=== PATIENT | male | born 1990 | race Caucasian/White ===

== ENCOUNTER 2016-10-15 03:32 | Emergency (ER) | payer OTHER ==
[2016-10-15 03:39] VITALS: BP 121/90
--- NOTE | 2016-10-15 04:03 | ER Document Report ---
HPI - HPI Patient complains to provider of: right knee pain Onset: Yesterday - playing [employer] fell and twisted the knee Onset/Duration: Gradual Pain Level: 5 Context: 26 yo male twisted and fell injuring his right knee yesterday playing soccer with his niece in [place]. When he woke up this morning the pain was so intense it was difficult to walk. There no previous injury Associated Symptoms: None Exacerbated by: Movement, Walking Relieved by: Denies Similar symptoms previously: No Recently seen / treated by doctor: No - ROS ROS below otherwise negative: Yes Systems Reviewed and Negative: Yes All other systems reviewed and negative - REPRODUCTIVE Reproductive: DENIES: : - DERM Skin Color: Normal Past Medical History - General Information source: Patient - Social History Smoking Status: Current Every Day Smoker Frequency of alcohol use: None Drug Abuse: None Lives with: Spouse/Significant other Family History: Reviewed & Not Pertinent Patient has suicidal ideation: No Patient has homicidal ideation: No - Medical History Medical History: Negative Pulmonary Medical History: Reports: Hx Bronchitis Renal/ Medical History: Denies: Hx Peritoneal Dialysis Past Surgical History: Reports: Hx Orthopedic Surgery - L hand with screws in place - Immunizations Hx Diphtheria, Pertussis, Tetanus Vaccination: Yes - unknown Vertical Provider Document - CONSTITUTIONAL Agree With Documented VS: Yes Exam Limitations: No Limitations - INFECTION CONTROL TRAVEL OUTSIDE OF THE [place] IN LAST 30 DAYS: No - HEENT HEENT: Normocephalic - NECK Neck: Supple - RESPIRATORY O2 Sat by Pulse Oximetry: 97 - MUSCULOSKELETAL/EXTREMETIES Musculoskeletal/Extremeties: Tender - Anterior right knee, No Edema. negative: Eccymosis Notes: No effusion, patellar tendon intact, 2+ DP - NEURO Level of Consciousness: Awake, Alert Motor/Sensory: No Motor Deficit, No Sensory Deficit - DERM Integumentary: Warm, Dry Course - Re-evaluation Re-evalutation: 10/15/16 04:04 prelim xray is negative. - Vital Signs Vital signs: Temp Pulse Resp BP Pulse Ox 98 F 74 18 121/90 H 97 10/15/16 03:36 10/15/16 03:36 10/15/16 03:36 10/15/16 03:36 10/15/16 03:36 Discharge - Discharge Clinical Impression: Right knee injury Qualifiers: Encounter type: initial encounter Qualified Code(s): S89.91XA - Unspecified injury of right lower leg, initial encounter Condition: Good Disposition: HOME, SELF-CARE Instructions: Suspected Internal Knee Injury ([facility]), Sprained Knee ([facility]), Knee Immobilizing Splint ([facility]), Anti-Inflammatory Medication ([facility]) Additional Instructions: elevate knee immobilizer crutches see orthopedic doctor if persists to er any concerns Prescriptions: Ibuprofen [Motrin 800 mg Tablet] 800 mg PO Q8HP PRN #30 tab PRN Reason: Oxycodone HCl/Acetaminophen [Percocet 5-325 mg Tablet] 1 - 2 tab PO ASDIR PRN # 15 tablet PRN Reason: Forms: Return to Work Referrals: ZULEIMA RIVERA MD [ACTIVE STAFF] - Follow up as needed
[2016-10-15] MEDS ORDERED: ONDANSETRON 4 MG TAB.RAPDIS PO ONE (04:06)
[2016-10-15] MEDS ORDERED: OXYCODONE-ACETAMINOPHEN 5-325 MG TABLET PO ONE (04:06)
--- NOTE | 2016-10-15 04:11 | RADIOLOGY REPORT (SQ) ---
EXAM DESCRIPTION: KNEE RIGHT 4 VIEWS COMPLETED DATE/TIME: 10/15/2016 3:59 am REASON FOR STUDY: PAIN COMPARISON: None. NUMBER OF VIEWS: Four views. 5 images. TECHNIQUE: AP, lateral, and both oblique radiographic images acquired of the right knee. LIMITATIONS: None. FINDINGS: MINERALIZATION: Normal. BONES: No acute fracture or dislocation. No worrisome bone lesions. JOINT: No effusion. SOFT TISSUES: No soft tissue swelling. No radio-opaque foreign body. OTHER: No other significant finding. IMPRESSION: NEGATIVE STUDY OF THE RIGHT KNEE. NO RADIOGRAPHIC EVIDENCE OF ACUTE INJURY. TECHNICAL DOCUMENTATION: JOB ID: [id number] [employer]- All Rights Reserved
== END 2016-10-15 04:20 | disposition home or self-care (01) ==
LOC: ER 03:32
DX: S89.91XA Unspecified injury of right lower leg, initial encounter (principal); M25.561 Pain in right knee; F17.200 Nicotine dependence, unspecified, uncomplicated; W19.XXXA Unspecified fall, initial encounter; Y93.66 Activity, soccer
CPT/HCPCS: 99283; 73564; L1830; S0119

== ENCOUNTER 2016-11-17 14:47 | Emergency (ER) | payer OTHER ==
[2016-11-17] MEDS ORDERED: DIPHENHYDRAMINE HCL 50 MG/ML VIAL ONE (14:54)
[2016-11-17] MEDS ORDERED: EPINEPHRINE INJ/PF 1 MG/1 ML AMPULE ONE (14:54)
[2016-11-17] MEDS ORDERED: METHYLPREDNISOLONE INJ 125 MG/2 ML SDV ONE (14:55)
[2016-11-17] MEDS ORDERED: FAMOTIDINE INJ/PF 20 MG/2 ML SDV IV ONE ×2 (14:55→15:18)
--- NOTE | 2016-11-17 15:13 | ER Document Report ---
ED Skin Rash/Insect Bite/Abscs - General Information source: Patient TRAVEL OUTSIDE OF THE [place] IN LAST 30 DAYS: No - HPI Patient complains to provider of: Insect sting - several bees Onset: Just prior to arrival Identify cause: Yes - bee sting while mowing grass <ERIKA OLSON - Last Filed: 11/17/16 15:39> <BJ WHITE - Last Filed: 11/17/16 23:43> - General Chief Complaint: Bee Sting Stated Complaint: BEE STING/ SHORTNESS OF BREATH Notes: Patient is a 26 year old male who presents to the ED with complaints of several bee stings he obtained while mowing the grass outside just prior to arrival. Patient states he has some difficulty breathing and feels lightheaded when he sits up. Patient denies any abdominal pain other than the pain from the bee stings. Patient states he was outside for a couple hours and only drank a couple bottles of water. Patient denies a previous history of being allergic to bee stings. Patient is not on any daily medications. No other concerns or complaints at this time. (ERIKA OLSON) - Related Data Allergies/Adverse Reactions: bee sting Allergy (Uncoded 11/17/16 15:04) Past Medical History - General Information source: Patient - Social History Smoking Status: Unknown if Ever Smoked Family History: Reviewed & Not Pertinent Patient has suicidal ideation: No Patient has homicidal ideation: No Pulmonary Medical History: Reports: Hx Bronchitis Renal/ Medical History: Denies: Hx Peritoneal Dialysis Past Surgical History: Reports: Hx Orthopedic Surgery - L hand with screws in place - Immunizations Hx Diphtheria, Pertussis, Tetanus Vaccination: Yes - unknown <ERIKA OLSON - Last Filed: 11/17/16 15:39> Review of Systems - Review of Systems Constitutional: No symptoms reported EENT: No symptoms reported Cardiovascular: See HPI, Lightheaded Respiratory: See HPI, Short of breath Gastrointestinal: No symptoms reported Genitourinary: No symptoms reported Male Genitourinary: No symptoms reported Musculoskeletal: No symptoms reported Skin: See HPI, Other - bee stings Hematologic/Lymphatic: No symptoms reported Neurological/Psychological: No symptoms reported <ERIKA OLSON - Last Filed: 11/17/16 15:39> Physical Exam - Vital signs Interpretation: Normal - General General appearance: Alert In distress: Mild - Appears uncomfortable - HEENT Head: Normocephalic, Atraumatic Eyes: Normal Pupils: PERRL - Respiratory Respiratory status: No respiratory distress Chest status: Nontender Breath sounds: Normal Chest palpation: Normal - Cardiovascular Rhythm: Regular Heart sounds: Normal auscultation Murmur: No - Abdominal Inspection: Normal Distension: No distension Bowel sounds: Normal Tenderness: Nontender Organomegaly: No organomegaly - Back Back: Normal, Nontender - Extremities General upper extremity: Normal inspection, Nontender, Normal color, Normal ROM , Normal temperature General lower extremity: Normal inspection, Nontender, Normal color, Normal ROM , Normal temperature, Normal weight bearing. No: Carlita's sign - Neurological Neuro grossly intact: Yes Cognition: Normal Orientation: AAOx4 Tiki Coma Scale Eye Opening: Spontaneous Tiki Coma Scale Verbal: Oriented Raymond Coma Scale Motor: Obeys Commands Tiki Coma Scale Total: 15 Speech: Normal Motor strength normal: LUE, RUE, LLE, RLE Sensory: Normal - Psychological Associated symptoms: Normal affect, Normal mood - Skin Skin Temperature: Warm Skin Moisture: Dry Skin Color: Normal Skin irregularity: other - Multiple areas of insect envenomation <BJ WHITE - Last Filed: 11/17/16 23:43> - Vital signs Vitals: Temp Pulse Resp BP Pulse Ox 98.4 F 94 20 130/87 H 97 11/17/16 14:51 11/17/16 14:51 11/17/16 14:51 11/17/16 14:51 11/17/16 14:51 Course <ERIKA OLSON - Last Filed: 11/17/16 15:39> <BJ WHITE - Last Filed: 11/17/16 23:43> - Re-evaluation Re-evalutation: 11/17/16 20:15 Patient is a 26-year-old male who comes in for allergic reaction. Patient initially had some throat scratching and lightheadedness. Patient was given Solu-Medrol, Benadryl, and famotidine. He was also given fluids. Patient slept for quite some time from the Benadryl even though was only 25 mg. He is feeling better at this time. He is having pain from his envenomation but no further evidence for allergic reaction. He will be discharged home with prednisone, famotidine, and EpiPen as needed. Stable for discharge. Return if any worsening or concerning symptoms. (BJ WHITE) - Vital Signs Vital signs: Temp Pulse Resp BP Pulse Ox 98.4 F 94 11 L 108/76 93 11/17/16 14:51 11/17/16 14:51 11/17/16 20:46 11/17/16 20:46 11/17/16 20:46 Discharge <ERIKA OLSON - Last Filed: 11/17/16 15:39> <BJ WHITE - Last Filed: 11/17/16 23:43> - Discharge Clinical Impression: Allergic reaction Qualifiers: Encounter type: initial encounter Qualified Code(s): T78.40XA - Allergy, unspecified, initial encounter Insect bite Qualifiers: Encounter type: initial encounter Qualified Code(s): W57.XXXA - Bitten or stung by nonvenomous insect and other nonvenomous arthropods, initial encounter Condition: Stable Disposition: HOME, SELF-CARE Instructions: Acute Allergic Reaction ([facility]), Swollen Insect Bite or Sting ([facility]) Prescriptions: Epinephrine [Epipen 2-Keaton] 0.3 mg IM ONCE #1 ml Famotidine [Pepcid 20 mg Tablet] 20 mg PO DAILY #30 tablet Prednisone 40 mg PO DAILY #6 tablet Forms: Special Work Note, Return to Work Scribe Attestation: 11/17/16 23:43 I personally performed the services described in the documentation, reviewed and edited the documentation which was dictated to the scribe in my presence, and it accurately records my words and actions. (BJ WHITE) Scribe Documentation - Scribe Written by Joyce:: joyce Patino, 11/17/2016, 1513 acting as scribe for :: Kushal <ERIKA OLSON - Last Filed: 11/17/16 15:39>
[2016-11-17] MEDS ORDERED: METHYLPREDNISOLONE INJ 125 MG/2 ML SDV IV ONE (15:18)
[2016-11-17] MEDS ORDERED: DIPHENHYDRAMINE HCL 50 MG/ML VIAL IV ONE (15:18)
[2016-11-17] MEDS ORDERED: NORMAL SALINE 1000 ML 1,000 ML IV PRN (15:19)
[2016-11-17] MEDS ORDERED: IPRATROPIUM/ALBUTEROL 0.5-2.5 MG/3 ML AMPUL NEB ONE (16:36)
[2016-11-17] MEDS ORDERED: KETOROLAC TROMETHAMINE INJ/PF 30 MG/1 ML SDV IV ONE (17:27)
[2016-11-17] MEDS ORDERED: HYDROCODONE/ACETAMINOPHEN 5-325 MG 6 TAB/DSPK PO PRN (20:53)
[2016-11-17] MEDS ORDERED: HYDROCODONE/ACETAMINOPHEN 5-325 MG 6 TAB/DSPK ONE (20:56)
[2016-11-17 21:08] VITALS: BP 108/76
== END 2016-11-17 20:55 | disposition home or self-care (01) ==
LOC: ER 14:47
DX: T63.441A Toxic effect of venom of bees, accidental (unintentional), initial encounter (principal); R06.02 Shortness of breath; R42 Dizziness and giddiness; R09.89 Other specified symptoms and signs involving the circulatory and respiratory systems; Y92.007 Garden or yard of unspecified non-institutional (private) residence as the place of occurrence of the external cause
CPT/HCPCS: 94640; 99283; 96374; 96375; J1200; J2930; J1885; J7030; S0028; J7620

== ENCOUNTER 2016-12-02 10:19 | Emergency (ER) | payer OTHER ==
--- NOTE | 2016-12-02 11:31 | ER Document Report ---
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 Foosh injury. He is complaining of pain over the distal left ulna. He had surgery and stabilization of metacarpal fractures of the middle and ring finger in the past. He had an Andres bandage on the area this morning. Associated Symptoms: None Exacerbated by: Movement Relieved by: Denies Similar symptoms previously: No Recently seen / treated by doctor: No - ROS ROS below otherwise negative: Yes Systems Reviewed and Negative: Yes All other systems reviewed and negative - REPRODUCTIVE Reproductive: DENIES: : - DERM Skin Color: Normal Past Medical History - General Information source: Patient - Social History Smoking Status: Unknown if Ever Smoked Frequency of alcohol use: None Drug Abuse: None Lives with: Family Family History: Reviewed & Not Pertinent Pulmonary Medical History: Reports: Hx Bronchitis Renal/ Medical History: Denies: Hx Peritoneal Dialysis Past Surgical History: Reports: Hx Orthopedic Surgery - L hand with screws in place - Immunizations Hx Diphtheria, Pertussis, Tetanus Vaccination: Yes - unknown Vertical Provider Document - CONSTITUTIONAL Agree With Documented VS: Yes Exam Limitations: No Limitations - INFECTION CONTROL TRAVEL OUTSIDE OF THE [place] IN LAST 30 DAYS: No - HEENT HEENT: Atraumatic, Normocephalic - NECK Neck: Supple - MUSCULOSKELETAL/EXTREMETIES Musculoskeletal/Extremeties: MAEW, FROM, Tender - ulnar styloid, No Edema. negative: Eccymosis Notes: non tender over metacarpals, and carpals. FROM hand, wrist, and elbow. N/V intact. - NEURO Level of Consciousness: Awake, Alert, Appropriate Motor/Sensory: No Motor Deficit, No Sensory Deficit - DERM Integumentary: Warm, Dry, No Rash Course - Re-evaluation Re-evalutation: 12/02/16 12:14 Stable surgical changes on the middle and ring finger, negative wrist x-ray. Procedures - Immobilization Left Wrist Time completed: 12:35 Pre-Proc Neuro Vasc Exam: Normal Immobilizer type: Cock-up Performed by: RN Post-Proc Neuro Vasc Exam: Normal Alignment checked and good: Yes Discharge - Discharge Clinical Impression: left ulnar styloid injury Wrist sprain Qualifiers: Encounter type: initial encounter Laterality: left Qualified Code(s): S63.502A - Unspecified sprain of left wrist, initial encounter Condition: Good Disposition: HOME, SELF-CARE Instructions: Wrist Sprain ([facility]), Temporary Splint ([facility]), Anti-Inflammatory Medication ([facility]), Splint Precautions ([facility]) Additional Instructions: splint this week see your orthopedic doctor if persists to er any concerns Please complete the patient satisfaction survey if you get one, and return it.. If you do not receive a survey, then you can go to the [facility] website, [email or web address] and place your comments about your very good care. Thank you very much. It was a pleasure being your medical provider today. Prescriptions: Ibuprofen [Motrin 800 mg Tablet] 800 mg PO Q8HP PRN #30 tablet PRN Reason: Forms: Return to Work
--- NOTE | 2016-12-02 12:11 | RADIOLOGY REPORT (SQ) ---
EXAM DESCRIPTION: WRIST LEFT 3 VIEWS COMPLETED DATE/TIME: 12/02/2016 11:55 am REASON FOR STUDY: fall last night 7:30 pm COMPARISON: 01/28/2016. NUMBER OF VIEWS: Three views. TECHNIQUE: AP, lateral, and oblique radiographic images acquired of the left wrist. LIMITATIONS: None. FINDINGS: MINERALIZATION: Normal. BONES: No acute fracture or dislocation. Stable surgical changes in the 3rd and 4th metacarpal with hardware. No worrisome bone lesions. Normal alignment. SOFT TISSUES: No soft tissue swelling. No foreign body. OTHER: No other significant finding. IMPRESSION: STABLE SURGICAL CHANGES. NEGATIVE STUDY OF THE LEFT WRIST. NO RADIOGRAPHIC EVIDENCE OF ACUTE INJURY. TECHNICAL DOCUMENTATION: JOB ID: [id number] [employer]- All Rights Reserved
[2016-12-02 12:37] VITALS: BP 121/88
== END 2016-12-02 12:40 | disposition home or self-care (01) ==
LOC: ER 10:19
DX: S63.502A Unspecified sprain of left wrist, initial encounter (principal); W54.1XXA Struck by dog, initial encounter; Z98.890 Other specified postprocedural states
CPT/HCPCS: 99283; 73110; L3908

== ENCOUNTER 2016-12-28 15:36 | Emergency (ER) | payer OTHER ==
[2016-12-28 15:42] VITALS: BP 131/77
[2016-12-28] MEDS ORDERED: IBUPROFEN 400 MG TABLET PO ONE (16:17)
--- NOTE | 2016-12-28 16:23 | ER Document Report ---
ED Hand/Wrist Injury - General Chief Complaint: Hand Injury Stated Complaint: LEFT HAND INJURY Time Seen by Provider: 12/28/16 15:59 Mode of Arrival: Ambulatory Information source: Patient Notes: 26-year-old male presents to ED for injury to his left hand. He states he has a history of surgery to his left hand with placement of metal screws. He was more moving furniture for his friend today with the sectional sulfur fell on his hand. He states he took 400 mg of ibuprofen at home with no relief. TRAVEL OUTSIDE OF THE [place] 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 Lives with: Family Family History: Reviewed & Not Pertinent Patient has suicidal ideation: No Patient has homicidal ideation: No - Past Medical History Cardiac Medical History: Reports: None Pulmonary Medical History: Reports: Hx Bronchitis EENT Medical History: Reports: None Neurological Medical History: Reports: None Endocrine Medical History: Reports: None Renal/ Medical History: Reports: None Malignancy Medical History: Reports None GI Medical History: Reports: None Musculoskeltal Medical History: Reports Hx Arthritis, Reports Hx Musculoskeletal Trauma Skin Medical History: Reports None Psychiatric Medical History: Reports: None Traumatic Medical History: Reports: Hx Fractures Infectious Medical History: Reports: None Past Surgical History: Reports: Hx Orthopedic Surgery - L hand with screws in place - Immunizations Hx Diphtheria, Pertussis, Tetanus Vaccination: Yes - unknown Review of Systems - Review of Systems Constitutional: No symptoms reported EENT: No symptoms reported Cardiovascular: No symptoms reported Respiratory: No symptoms reported Gastrointestinal: No symptoms reported Genitourinary: No symptoms reported Male Genitourinary: No symptoms reported Musculoskeletal: Other - right hand pain swelling and tenderness Skin: No symptoms reported Hematologic/Lymphatic: No symptoms reported Neurological/Psychological: No symptoms reported -: Yes All other systems reviewed and negative Physical Exam - Vital signs Vitals: Temp Pulse Resp BP Pulse Ox 98.8 F 90 16 131/77 H 96 12/28/16 15:40 12/28/16 15:40 12/28/16 15:40 12/28/16 15:40 12/28/16 15:40 Interpretation: Normal - General General appearance: Appears well, Alert - HEENT Head: Normocephalic, Atraumatic Eyes: Normal Pupils: PERRL - Respiratory Respiratory status: No respiratory distress Chest status: Nontender Breath sounds: Normal Chest palpation: Normal - Cardiovascular Rhythm: Regular Heart sounds: Normal auscultation Murmur: No - Abdominal Inspection: Normal Distension: No distension Bowel sounds: Normal Tenderness: Nontender Organomegaly: No organomegaly - Back Back: Normal, Nontender - Extremities General upper extremity: Normal color, Normal temperature General lower extremity: Normal inspection, Nontender, Normal color, Normal ROM , Normal temperature, Normal weight bearing. No: Carlita's sign Wrist: Tender, Limited ROM - due yo pain Hand: Tender, Ecchymosis, No evidence of human bite, No evidence of FB, Swelling. No: Abrasion, Deformity, Dislocation, Instability, Laceration - Neurological Neuro grossly intact: Yes Cognition: Normal Orientation: AAOx4 Tiki Coma Scale Eye Opening: Spontaneous Tiki Coma Scale Verbal: Oriented Tiki Coma Scale Motor: Obeys Commands Tiki Coma Scale Total: 15 Speech: Normal Motor strength normal: LUE, RUE, LLE, RLE Sensory: Normal - Psychological Associated symptoms: Normal affect, Normal mood - Skin Skin Temperature: Warm Skin Moisture: Dry Skin Color: Normal Course - Re-evaluation Re-evalutation: 12/28/16 17:30 Discussed x-ray results with patient and patient discharged home with prescription for ibuprofen. Patient was given instructions on ice and elevation. - Vital Signs Vital signs: Temp Pulse Resp BP Pulse Ox 98.8 F 90 16 131/77 H 96 12/28/16 15:40 12/28/16 15:40 12/28/16 15:40 12/28/16 15:40 12/28/16 15:40 - Diagnostic Test Radiology reviewed: Image reviewed, Reports reviewed Discharge - Discharge Clinical Impression: Contusion of left hand Qualifiers: Encounter type: initial encounter Qualified Code(s): S60.222A - Contusion of left hand, initial encounter Condition: Stable Disposition: HOME, SELF-CARE Instructions: Family Physicians / Practices Additional Instructions: CONTUSION: Your injury has resulted in a contusion -- a crushing of the deep tissues. No injury to important structures was detected during the physician's exam. Contusions vary in the amount of pain they cause, and in the length of time required for healing. Typically, the area will become bruised, and will remain painful to touch for two or three weeks. However, most patients are back to working and playing within a few days. After the initial period of rest and cold-packs, your symptoms (together with the doctor's recommendations) will determine how rapidly you can get back to full activity. Usually this means "do what feels okay, but don't do things that hurt." If re-examination was recommended, it's important to follow up as instructed. Call the doctor or return any time if pain increases, if swelling becomes severe, if you develop numbness or weakness in an injured extremity, or if any other alarming symptoms occur. USE OF TYLENOL (ACETAMINOPHEN): Acetaminophen may be taken for pain relief or fever control. It's much safer than aspirin, offering a wider range of "safe" dosages. It is safe during . Some brand names are Tylenol, Panadol, Datril, Anacin 3, Tempra, and Liquiprin. Acetaminophen can be repeated every four hours. The following are maximum recommended dosages: WEIGHT Dose Drops Elixir Chewable( 80mg) (LBS.) drprs=droppers tsp=teaspoon 6 40 mg 0.4 ml (1/2) 6-11 80 mg 0.8 ml (full) tsp 1 tab 12-16 120 mg 1 1/2 drprs 3/4 tsp 1 1/2 tabs 17-23 160 mg 2 drprs 1 tsp 2 tabs 24-30 240 mg 3 drprs 1 1/2 tsp 3 tabs 30-35 320 mg 2 tsp 4 tabs 36-41 360 mg 2 1/4 tsp 4 1/2 tabs 42-47 400 mg 2 1/2 tsp 5 tabs 48-53 480 mg 3 tsp 6 tabs 54-59 520 mg 3 1/4 tsp 6 1/2 tabs 60-64 560 mg 3 1/2 tsp 7 tabs 65-70 600 mg 3 3/4 tsp 7 1/2 tabs 71-76 640 mg 4 tsp 8 tabs 77-82 720 mg 4 1/2 tsp 9 tabs 83-88 800 mg 5 tsp 10 tabs >89 pounds or adults 650 mg to 900 mg Acetaminophen can be repeated every four hours. Maximum dose not to exceed 4000 mg a day. These maximum recommended dosages are slightly higher than the dosages written on the product container, but these dosages are very safe and below the toxic dosage for acetaminophen. ICE & ELEVATION: Apply ice packs frequently against the painful area. Many different schedules are recommended, such as "20 minutes on, 20 minutes off" or "one hour ice, two hours rest." If you need to work, you may need to go longer between ice treatments. You should plan to have the area ice packed AT LEAST one- fourth of the time. The ice should be applied over the wrap, tape, or splint, or over a layer of cloth -- not directly against the skin. Some ice bags have a built-in cloth and can be put directly on the skin. Your injured part should be elevated as much as possible over the next 48 hours. Try to keep the injury above the level of the heart. Avoid use of the injured area. Elevation and rest will decrease the swelling. USE OF [id number]-[id number] IBUPROFEN: Ibuprofen (Advil, Nuprin, Medipren, Motrin IB) is a medication for fever and pain control. In addition, it has anti- inflammatory effects which may be beneficial, especially in the treatment of injuries. It's best to take ibuprofen with food. Persons with ulcer disease or allergy to aspirin should notify their physician of this before taking ibuprofen. Ibuprofen can be given every four to six hours, for a total of four doses daily. Age Pain or fever dose Antiinflammatory dose 6-8 yr 200 mg (1 tab) 200 mg (1 tab) 9-11 yr 200 mg (1 tab) 200-400 mg (1-2 tab) 11-14 yr 200-400 mg (1-2 tab) 400 mg (2 tab) 15-adult 400 mg (2 tab) 600 mg (3 tab) FOLLOW-UP CARE: If you have been referred to a physician for follow-up care, call the physician s office for an appointment as you were instructed or within the next two days. If you experience worsening or a significant change in your symptoms, notify the physician immediately or return to the Emergency Department at any time for re-evaluation. Prescriptions: Ibuprofen 800 mg PO Q8HP PRN #20 tablet PRN Reason: Referrals: ZULEIMA RIVERA MD [ACTIVE STAFF] - Follow up as needed
--- NOTE | 2016-12-28 16:39 | RADIOLOGY REPORT (SQ) ---
EXAM DESCRIPTION: HAND LEFT 3 VIEWS COMPLETED DATE/TIME: 12/28/2016 4:26 pm REASON FOR STUDY: pain and injury COMPARISON: Left hand three views 01/28/2016 EXAM PARAMETERS: NUMBER OF VIEWS: Three views. TECHNIQUE: AP, lateral and oblique radiographic images acquired of the left hand. LIMITATIONS: None. FINDINGS: MINERALIZATION: Normal. BONES: No acute fracture or dislocation. Micro screws across old healed fractures of the 3rd and 4th metacarpal diaphyses. No lucency around the screws worrisome for loosening or infection. JOINTS: No effusions. SOFT TISSUES: Mild left dorsal hand soft tissue swelling. No foreign body. OTHER: No other significant finding. IMPRESSION: No acute bony findings. Old healed left 3rd and 4th midshaft metacarpal fractures with hardware. TECHNICAL DOCUMENTATION: JOB ID: [id number] [employer]- All Rights Reserved
== END 2016-12-28 17:25 | disposition home or self-care (01) ==
LOC: ER 15:36
DX: S60.222A Contusion of left hand, initial encounter (principal); W23.0XXA Caught, crushed, jammed, or pinched between moving objects, initial encounter; Y93.E6 Activity, residential relocation
CPT/HCPCS: 99283; 73130; J3490

== ENCOUNTER 2017-05-27 14:31 | Emergency (ER) | payer OTHER ==
[2017-05-27] MEDS ORDERED: ONDANSETRON 4 MG TAB.RAPDIS PO ONE (16:08)
--- NOTE | 2017-05-27 16:10 | ER Document Report ---
HPI - HPI Patient complains to provider of: vomited last night, left hand injury Onset: Yesterday Onset/Duration: Sudden Pain Level: 4 Context: 26 yo male that works at [employer] is c/o crushing left hand between wall and sofa, also vomited twice last night with some nausea today. No abd. pain, No diarrhea. Prior to d/c wanted me to look at groin rash. Worried about it. Associated Symptoms: None Exacerbated by: Denies Relieved by: Denies - ROS ROS below otherwise negative: Yes Systems Reviewed and Negative: Yes All other systems reviewed and negative - REPRODUCTIVE Reproductive: DENIES: : Past Medical History - General Information source: Patient - Social History Smoking Status: Former Smoker Frequency of alcohol use: None Drug Abuse: None Lives with: Family Family History: Reviewed & Not Pertinent Pulmonary Medical History: Reports: Hx Bronchitis Renal/ Medical History: Denies: Hx Peritoneal Dialysis Musculoskeltal Medical History: Reports Hx Arthritis, Reports Hx Musculoskeletal Trauma Traumatic Medical History: Reports: Hx Fractures Past Surgical History: Reports: Hx Orthopedic Surgery - L hand with screws in place - Immunizations Hx Diphtheria, Pertussis, Tetanus Vaccination: Yes - unknown Vertical Provider Document - CONSTITUTIONAL Agree With Documented VS: Yes Exam Limitations: No Limitations General Appearance: No Apparent Distress - INFECTION CONTROL TRAVEL OUTSIDE OF THE [place] IN LAST 30 DAYS: No - HEENT HEENT: Normal ENT Exam, Normocephalic - NECK Neck: Supple - RESPIRATORY Respiratory: Breath Sounds Normal, No Respiratory Distress O2 Sat by Pulse Oximetry: 95 - CARDIOVASCULAR Cardiovascular: Regular Rate, Regular Rhythm - GI/ABDOMEN Gastrointestinal: Abdomen Soft, Abdomen Non-Tender, No Organomegaly - REPRODUCTIVE Notes: tinea cruris - BACK Back: Normal Inspection - MUSCULOSKELETAL/EXTREMETIES Musculoskeletal/Extremeties: MAEW, FROM, Tender - dorsal left hand soft tissue, FROM, n/v intact, Edema. negative: Eccymosis - NEURO Level of Consciousness: Awake, Alert Motor/Sensory: No Motor Deficit, No Sensory Deficit - DERM Integumentary: Warm, Dry Course - Re-evaluation Re-evalutation: 05/27/17 21:14 late entry: xray negative - Vital Signs Vital signs: Temp Pulse Resp BP Pulse Ox 98.7 F 104 H 18 137/84 H 95 05/27/17 14:44 05/27/17 14:44 05/27/17 14:44 05/27/17 14:44 05/27/17 14:44 Discharge - Discharge Clinical Impression: Tinea cruris Vomiting Qualifiers: Vomiting type: unspecified Vomiting Intractability: non-intractable Nausea presence: with nausea Qualified Code(s): R11.2 - Nausea with vomiting, unspecified Crushing injury of left hand Qualifiers: Encounter type: initial encounter Qualified Code(s): S67.22XA - Crushing injury of left hand, initial encounter Condition: Good Disposition: HOME, SELF-CARE Instructions: Antinausea Medication ([facility]), Crush Injury ([facility]), Ringworm (Tinea Corporis) ([facility]), Topical Antifungal ([facility]), Vomiting ([facility]) Additional Instructions: plenty of fluids brijesh wrap to left hand for comfort over the counter antifungal cream twice a day, it will fade the skin fungus return to er if worsening symptoms, abdominal pain, dehydration, fever phenergan for nausea every 4-6 hours as needed. Prescriptions: Promethazine HCl [Phenergan 25 mg Tablet] 25 mg PO Q4HP PRN #20 tablet PRN Reason: Forms: Return to Work
--- NOTE | 2017-05-27 17:14 | RADIOLOGY REPORT (SQ) ---
EXAM DESCRIPTION: HAND LEFT 3 VIEWS COMPLETED DATE/TIME: 05/27/2017 4:53 pm REASON FOR STUDY: injury 1200 1-15 COMPARISON: Left hip films 01/28/2016 EXAM PARAMETERS: NUMBER OF VIEWS: Three views. TECHNIQUE: AP, lateral and oblique radiographic images acquired of the left hand. LIMITATIONS: None. FINDINGS: MINERALIZATION: Normal. BONES: No acute fracture or dislocation. No worrisome bone lesions. JOINTS: No effusions. SOFT TISSUES: No soft tissue swelling. Tiny micro screws across 3rd and 4th metacarpal mid diaphysis healed fractures. OTHER: No other significant finding. IMPRESSION: No acute findings TECHNICAL DOCUMENTATION: JOB ID: [id number] [employer] All Rights Reserved
[2017-05-27 17:31] VITALS: BP 120/85
== END 2017-05-27 17:35 | disposition home or self-care (01) ==
LOC: ER 14:31
DX: S67.22XA Crushing injury of left hand, initial encounter (principal); R11.2 Nausea with vomiting, unspecified; B35.6 Tinea cruris; W23.0XXA Caught, crushed, jammed, or pinched between moving objects, initial encounter; Z87.891 Personal history of nicotine dependence
CPT/HCPCS: 99284; 73130; S0119

== ENCOUNTER 2017-08-23 17:19 | Emergency (ER) | payer OTHER ==
[2017-08-23 17:30] VITALS: BP 124/81
--- NOTE | 2017-08-23 18:06 | RADIOLOGY REPORT (SQ) ---
EXAM DESCRIPTION: HAND LEFT 3 VIEWS COMPLETED DATE/TIME: 08/23/2017 5:58 pm REASON FOR STUDY: left hand pain s/p injury COMPARISON: 05/27/2017 EXAM PARAMETERS: NUMBER OF VIEWS: Three views. TECHNIQUE: AP, lateral and oblique radiographic images acquired of the left hand. LIMITATIONS: None. FINDINGS: MINERALIZATION: Normal. BONES: No acute fracture or dislocation. No worrisome bone lesions. Surgical hardware 3rd and 4th m etacarpals. JOINTS: No effusions. SOFT TISSUES: No soft tissue swelling. No foreign body. OTHER: No other significant finding. IMPRESSION: No acute findings. TECHNICAL DOCUMENTATION: JOB ID: [id number] [employer]- All Rights Reserved Reading location - IP/workstation name: [email or web address]
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
== END 2017-08-23 18:34 | disposition home or self-care (01) ==
LOC: ER 17:19
DX: S60.222A Contusion of left hand, initial encounter (principal); M79.642 Pain in left hand; W50.0XXA Accidental hit or strike by another person, initial encounter; Y99.0 Civilian activity done for income or pay
CPT/HCPCS: 99283

== ENCOUNTER 2017-09-16 17:15 | Emergency (ER) | payer OTHER ==
[2017-09-16] MEDS ORDERED: MORPHINE SULFATE 10 MG/ML INJ IV ONE ×2 (18:04→20:32)
[2017-09-16] MEDS ORDERED: ONDANSETRON HCL INJ/PF 4 MG/2 ML SDV IV ONE (18:04)
[2017-09-16] MEDS ORDERED: NORMAL SALINE 1000 ML 1,000 ML IV ONE (18:04)
--- NOTE | 2017-09-16 18:20 | ER Document Report ---
ED Medical Screen (RME) - General Chief Complaint: Abdominal Pain Stated Complaint: VOMITING, ABDOMINAL PAIN Time Seen by Provider: 09/16/17 18:01 TRAVEL OUTSIDE OF THE [place] IN LAST 30 DAYS: No - HPI Notes: 09/16/17 18:20 Right lower quadrant abdominal pain - Related Data Allergies/Adverse Reactions: No Known Drug Allergies Allergy (Verified 09/16/17 17:47) bee sting Allergy (Uncoded 09/16/17 17:47) Past Medical History - Social History Chew tobacco use (# tins/day): No Frequency of alcohol use: None Drug Abuse: None Family history: Reviewed & Not Pertinent Pulmonary Medical History: Reports: Hx Bronchitis Renal/ Medical History: Denies: Hx Peritoneal Dialysis Musculoskeltal Medical History: Reports Hx Arthritis, Reports Hx Musculoskeletal Trauma Traumatic Medical History: Reports: Hx Fractures Past Surgical History: Reports: Hx Orthopedic Surgery - L hand with screws in place - Immunizations Hx Diphtheria, Pertussis, Tetanus Vaccination: Yes - unknown Review of Systems - Review of Systems Gastrointestinal: Abdominal pain Physical Exam - Vital signs Vitals: Temp Pulse Resp BP Pulse Ox 98.8 F 92 18 135/84 H 96 09/16/17 17:22 09/16/17 17:22 09/16/17 17:22 09/16/17 17:22 09/16/17 17:22 - Abdominal Inspection: Normal Distension: No distension Bowel sounds: Normal Course - Vital Signs Vital signs: Temp Pulse Resp BP Pulse Ox 98.8 F 92 18 135/84 H 96 09/16/17 17:22 09/16/17 17:22 09/16/17 17:22 09/16/17 17:22 09/16/17 17:22
[2017-09-16 18:50] LABS: ABSOLUTE BASOPHILS # (AUTO) 0.1 10^3/uL (0.0-0.2); ABSOLUTE EOSINOPHILS # (AUTO) 0.3 10^3/uL (0.0-0.6); ABSOLUTE LYMPHOCYTES (AUTO) 2.9 10^3/uL (0.5-4.7); ABSOLUTE MONOCYTES (AUTO) 0.6 10^3/uL (0.1-1.4); ABSOLUTE NEUT (AUTO) 6.1 10^3/uL (1.7-8.2); BASOPHILS % (AUTO) 0.9 % (0-2); EOSINOPHILS % (AUTO) 3.2 % (0-6); HEMATOCRIT 45.6 % (37.9-51.0); HEMOGLOBIN 15.2 g/dL (13.5-17.0); LYMPHOCYTES % (AUTO) 28.7 % (13-45); MEAN CORPUSCULAR HEMOGLOBIN 27.7 pg (27.0-33.4); MEAN CORPUSCULAR HGB CONC 33.3 g/dL (32.0-36.0); MEAN CORPUSCULAR VOLUME 83 fl (80-97); MONOCYTES % (AUTO) 6.1 % (3-13); PLATELET COUNT 331 10^3/uL (150-450); RED BLOOD COUNT 5.48 10^6/uL (4.35-5.55); RED CELL DISTRIBUTION WIDTH 13.7 % (11.5-14.0); SEGMENTED NEUTROPHILS % (AUTO) 61.1 % (42-78); TOTAL CELLS COUNTED % (AUTO) 100 %
--- NOTE | 2017-09-16 18:58 | ER Document Report ---
ED General - General Chief Complaint: Abdominal Pain Stated Complaint: VOMITING, ABDOMINAL PAIN Time Seen by Provider: 09/16/17 18:01 TRAVEL OUTSIDE OF THE [place] IN LAST 30 DAYS: No - HPI Notes: Patient is a 27-year-old male with no significant past medical history presents to the ED complaining of right lower quadrant pain, nausea without vomiting, and diarrhea 4 days. Patient states that the pain comes and goes on occasion, but has been constant recently. The pain does not radiate. Patient still able to eat, but does have a decreased p.o. intake due to nausea. He is still urinating normally without difficulties. Patient states that he did notice some bright red blood in the stool on 1 or 2 occasions without any melena. Denies any drug allergies. Denies any previous surgical history to his abdomen. Denies any headache, fever, neck pain, URI, sore throat, chest pain, palpitations, syncope, cough, shortness of breath, wheeze, dyspnea, vomiting, urinary retention, dysuria, hematuria, back pain, loss of control of bowel or bladder, numbness/tingling, saddle anesthesia, muscle paralysis/weakness, or rash. - Related Data Allergies/Adverse Reactions: No Known Drug Allergies Allergy (Verified 09/16/17 17:47) bee sting Allergy (Uncoded 09/16/17 17:47) Past Medical History - Social History Smoking Status: Never Smoker Chew tobacco use (# tins/day): No Frequency of alcohol use: None Drug Abuse: None Family History: Reviewed & Not Pertinent Patient has suicidal ideation: No Patient has homicidal ideation: No Pulmonary Medical History: Reports: Hx Bronchitis Renal/ Medical History: Denies: Hx Peritoneal Dialysis Musculoskeltal Medical History: Reports Hx Arthritis, Reports Hx Musculoskeletal Trauma Traumatic Medical History: Reports: Hx Fractures Past Surgical History: Reports: Hx Orthopedic Surgery - L hand with screws in place - Immunizations Hx Diphtheria, Pertussis, Tetanus Vaccination: Yes - unknown Review of Systems - Review of Systems -: Yes All other systems reviewed and negative Physical Exam - Vital signs Vitals: Temp Pulse Resp BP Pulse Ox 98.8 F 92 18 135/84 H 96 09/16/17 17:22 09/16/17 17:22 09/16/17 17:22 09/16/17 17:22 09/16/17 17:22 - Notes Notes: PHYSICAL EXAMINATION: GENERAL: Well-appearing, well-nourished and in no acute distress. LUNGS: Breath sounds clear to auscultation bilaterally and equal. No wheezes rales or rhonchi. HEART: Regular rate and rhythm without murmurs, rubs, gallops. ABDOMEN: Soft, nondistended abdomen. No guarding, no rebound. No masses appreciated. Normal bowel sounds present. No CVA tenderness bilaterally. + tenderness RLQ. Musculoskeletal: FROM to passive/active. Strength 5+/5. Extremities: No cyanosis, clubbing, or edema b/l. Peripheral pulses 2+. Capillary refill less than 3 seconds. NEUROLOGICAL: Normal speech, normal gait. Normal sensory, motor exams PSYCH: Normal mood, normal affect. SKIN: Warm, Dry, normal turgor, no rashes or lesions noted. Course - Re-evaluation Re-evalutation: 09/16/17 20:29 Patient is an afebrile, well-hydrated, 27-year-old male who presents to the ED with right lower quadrant pain unspecified. Vitals are acceptable. Patient's no tachycardia, tachypnea, or hypoxia. CBC, CMP, urinalysis were unremarkable for any acute pathology. CT scan showed "tiny" intrarenal calculi without any obstruction and mild diverticulosis. Appendix was visualized and was deemed "normal." Patient is able to tolerate p.o. Patient was given fluids and medicines IV today. I did review this case with Dr. Ramirez who favored observation, but to consult with the general surgeon prior. I did speak with the general surgeon, Dr. Moralez, who states that it is not his appendix with no white count and a normal appendix visualized on CT. He recommends observation and if worsening symptoms over the next 24 hours to return to the emergency department at that time. Conservative measures otherwise for symptoms. Patient is nontoxic-appearing recheck with your PCM in 1-2 days. Return to the ED with any worsening/concerning symptoms otherwise as reviewed discharge. Patient is in agreement. - Vital Signs Vital signs: Temp Pulse Resp BP Pulse Ox 98.8 F 92 18 135/84 H 96 09/16/17 17:22 09/16/17 17:22 09/16/17 17:22 09/16/17 17:22 09/16/17 17:22 - Laboratory Result Diagrams: 09/16/17 18:25 09/16/17 18:25 Laboratory results interpreted by me: 09/16/17 18:25 Sodium 145.2 H Glucose 120 H Discharge - Discharge Clinical Impression: Right lower quadrant abdominal pain Condition: Stable Disposition: HOME, SELF-CARE Instructions: Abdominal Pain ([facility]), Observation for Appendicitis ([facility]), Antinausea Medication ([facility]) Additional Instructions: Maintain adequate fluid and food intake [place] diet ([employer] Bananas, rice, apples, toast, etc Zofran as needed tylenol if needed Monitor for any worsening symptoms Make sure you are staying hydrated enough to urinate and have normal BM's Recheck with your PCM in 1-2 days Consider consult with general surgery for ongoing/worsening symptoms Return to the ED with any worsening symptoms and/or development of fever, headache, chest pain, palpitations, syncope, shortness of breath, trouble breathing, abdominal pain, n/v/d, blood in stool/urine, weakness, or other worsening symptoms that are concerning to you. Prescriptions: Ondansetron [Zofran Odt 4 mg Tablet] 1 - 2 tab PO Q4H PRN #15 tab.rapdis PRN Reason: For Nausea/Vomiting Forms: Elevated Blood Pressure Referrals: LENO BINGHAM MD [ACTIVE STAFF] - Follow up as needed
[2017-09-16 19:15] LABS: ALANINE AMINOTRANSFERASE 34 U/L (21-72); ALKALINE PHOSPHATASE 65 U/L (38-126); ANION GAP 11 (5-19); ASPARTATE AMINO TRANSFERASE 30 U/L (17-59); BILIRUBIN,DIRECT 0.2 mg/dL (0.0-0.4); BILIRUBIN,TOTAL 0.3 mg/dL (0.2-1.3); BLOOD UREA NITROGEN 13 mg/dL (7-20); CALCIUM 9.4 mg/dL (8.4-10.2); CARBON DIOXIDE 27 mmol/L (22-30); CHLORIDE 107 mmol/L (98-107); GLUCOSE 120 mg/dL (75-110); LIPASE 128.9 U/L (23-300); POTASSIUM 3.6 mmol/L (3.6-5.0); SODIUM 145.2 mmol/L (137-145); TOTAL PROTEIN 6.7 g/dL (6.3-8.2)
[2017-09-16 19:39] LABS: APPEARANCE,URINE CLEAR; BILIRUBIN,URINE NEGATIVE (NEGATIVE); COLOR,URINE YELLOW; GLUCOSE, URINE NEGATIVE (NEGATIVE); KETONES,URINE NEGATIVE (NEGATIVE); LEUKOCYTE ESTERASE,URINE NEGATIVE (NEGATIVE); NITRITE,URINE NEGATIVE (NEGATIVE); PROTEIN,URINE NEGATIVE (NEGATIVE); URINE SPECIFIC GRAVITY 1.024; UROBILINOGEN,URINE NEGATIVE mg/dL (<2.0)
--- NOTE | 2017-09-16 20:22 | RADIOLOGY REPORT (SQ) ---
EXAM DESCRIPTION: CT ABD/PELVIS WITH IV ONLY COMPLETED DATE/TIME: 09/16/2017 7:46 pm REASON FOR STUDY: rlq pain COMPARISON: None. TECHNIQUE: CT scan of the abdomen and pelvis performed using helical scanning technique with dynamic intravenous contrast injection. No oral contrast. Images reviewed with lung, soft tissue, and bone windows. Reconstructed coronal and sagittal MPR images reviewed. Delayed images for evaluation of the urinary system also acquired. All images stored on PACS. All CT scanners at this facility use dose modulation, iterative reconstruction, and/or weight based d osing when appropriate to reduce radiation dose to as low as reasonably achievable (ALARA). [facility]: Dose Right [facility]: CareDose [facility]: Dose Right [facility]: Teradose 4D [facility]: [employer] CONTRAST TYPE AND DOSE: contrast/concentration: Isovue 370.00 mg/ml; Total Contrast Delivered: 100.0 ml; Total Saline Delivered: 67.9 ml RENAL FUNCTION: BUN 13 creatinine 1 RADIATION DOSE: CT Rad equipment meets quality standard of care and radiation dose reduction techniq ues were employed. CTDIvol: 20.4 - 21.1 mGy. DLP: 2485 mGy-cm.. LIMITATIONS: None. FINDINGS: LOWER CHEST: No significant findings. No nodules or infiltrates. LIVER: Normal size. No masses. No dilated ducts. SPLEEN: Normal size. No focal lesions. PANCREAS: No masses. No significant calcifications. No adjacent inflammation or peripancreatic fluid collections. Pancreatic duct not dilated. GALLBLADDER: No identified stones by CT criteria. No inflammatory changes to suggest cholecystitis. ADRENAL GLANDS: No significant masses or asymmetry. RIGHT KIDNEY AND URETER: No solid masses. There appear to be some tiny nonobstructing intrarenal ca lculi. No hydronephrosis or hydroureter. LEFT KIDNEY AND URETER: No solid masses. No significant calcifications. No hydronephrosis or hydr oureter. AORTA AND VESSELS: No aneurysm. No dissection. Renal arteries, SMA, celiac without stenosis. RETROPERITONEUM: No retroperitoneal adenopathy, hemorrhage or masses. BOWEL AND PERITONEAL CAVITY: Mild diverticulosis coli with no acute inflammatory changes. APPENDIX: Normal. PELVIS: No mass. No free fluid. Normal bladder. ABDOMINAL WALL: No masses. No hernias. BONES: No significant or acute findings. OTHER: No other significant finding. IMPRESSION: 1. There are some tiny nonobstructing right intrarenal calculi. There is no ureteral s tone or obstruction. 2. Mild diverticulosis coli. TECHNICAL DOCUMENTATION: JOB ID: [id number] Quality ID # [id number]: Final reports with documentation of one or more dose reduction techniques (e.g., Au tomated exposure control, adjustment of the mA and/or kV according to patient size, use of iterative reconstruction technique) 2010 [employer]- All Rights Reserved Reading location - IP/workstation name: [email or web address]
[2017-09-16 20:43] VITALS: BP 120/62
== END 2017-09-16 20:50 | disposition home or self-care (01) ==
LOC: ER 17:15
DX: R10.31 Right lower quadrant pain (principal); R11.0 Nausea; R19.7 Diarrhea, unspecified; Z91.030 Bee allergy status
CPT/HCPCS: 96376; 99284; 96361; 96374; 96375; 36415; 83690; 85025; 80053; 81001; 74177; J2270; J2405; J7030

== ENCOUNTER 2017-09-17 21:34 | Observation (INO) | payer OTHER ==
[2017-09-17] MEDS ORDERED: ONDANSETRON HCL INJ/PF 4 MG/2 ML SDV IV ONE (22:30)
[2017-09-17] MEDS ORDERED: NORMAL SALINE 1000 ML 1,000 ML IV ONE ×2 (22:30→23:25)
[2017-09-17 22:47] LABS: ABSOLUTE BASOPHILS # (AUTO) 0.1 10^3/uL (0.0-0.2); ABSOLUTE EOSINOPHILS # (AUTO) 0.2 10^3/uL (0.0-0.6); ABSOLUTE LYMPHOCYTES (AUTO) 2.7 10^3/uL (0.5-4.7); ABSOLUTE MONOCYTES (AUTO) 0.5 10^3/uL (0.1-1.4); ABSOLUTE NEUT (AUTO) 4.6 10^3/uL (1.7-8.2); BASOPHILS % (AUTO) 0.9 % (0-2); EOSINOPHILS % (AUTO) 2.6 % (0-6); HEMATOCRIT 45.2 % (37.9-51.0); HEMOGLOBIN 15.1 g/dL (13.5-17.0); LYMPHOCYTES % (AUTO) 33.3 % (13-45); MEAN CORPUSCULAR HEMOGLOBIN 28.1 pg (27.0-33.4); MEAN CORPUSCULAR HGB CONC 33.3 g/dL (32.0-36.0); MEAN CORPUSCULAR VOLUME 84 fl (80-97); MONOCYTES % (AUTO) 6.2 % (3-13); PLATELET COUNT 321 10^3/uL (150-450); RED BLOOD COUNT 5.37 10^6/uL (4.35-5.55); TOTAL CELLS COUNTED % (AUTO) 100 %; WHITE BLOOD COUNT 8.1 10^3/uL (4.0-10.5)
[2017-09-17 23:05] LABS: ALANINE AMINOTRANSFERASE 38 U/L (21-72); ALBUMIN 3.7 g/dL (3.5-5.0); ALKALINE PHOSPHATASE 51 U/L (38-126); ANION GAP 7 (5-19); ASPARTATE AMINO TRANSFERASE 25 U/L (17-59); BILIRUBIN,DIRECT 0.2 mg/dL (0.0-0.4); BILIRUBIN,TOTAL 0.5 mg/dL (0.2-1.3); BLOOD UREA NITROGEN 9 mg/dL (7-20); CALCIUM 9.6 mg/dL (8.4-10.2); CARBON DIOXIDE 30 mmol/L (22-30); CHLORIDE 105 mmol/L (98-107); GLUCOSE 97 mg/dL (75-110); POTASSIUM 4.2 mmol/L (3.6-5.0); SODIUM 141.5 mmol/L (137-145); TOTAL PROTEIN 6.1 g/dL (6.3-8.2)
--- NOTE | 2017-09-17 23:26 | ER Document Report ---
ED GI/ - General TRAVEL OUTSIDE OF THE [place] IN LAST 30 DAYS: No <SANG SAAVEDRA - Last Filed: 09/18/17 07:11> <TALATAMYMILLICENT - Last Filed: 09/18/17 08:10> - General Chief Complaint: Abdominal Pain Stated Complaint: LOWER RT ABDOMINAL PAIN Time Seen by Provider: 09/17/17 22:29 Notes: Patient is a 27-year-old male that comes emergency department for chief complaint of right lower quadrant pain. He states pain started yesterday, he was evaluated yesterday including with a CAT scan and sent home with return precautions. He reports that his pain has been constant, has worsened, and he returned because of this. He was taking Zofran at home, was able to eat a little bit but still has no appetite. He states he had diarrhea for 4 days although this has resolved. He denies fever or chills. He denies any abdominal surgeries, only reported medical history is orthopedic surgery, he denies smoking, alcohol, drug abuse. (SANG SAAVEDRA) - Related Data Allergies/Adverse Reactions: No Known Drug Allergies Allergy (Verified 09/16/17 17:47) bee sting Allergy (Uncoded 09/16/17 17:47) Past Medical History - General Information source: Patient - Social History Smoking Status: Never Smoker Frequency of alcohol use: None Drug Abuse: None Lives with: Spouse/Significant other Family History: Reviewed & Not Pertinent Pulmonary Medical History: Reports: Hx Bronchitis Renal/ Medical History: Denies: Hx Peritoneal Dialysis Musculoskeltal Medical History: Reports Hx Arthritis, Reports Hx Musculoskeletal Trauma Traumatic Medical History: Reports: Hx Fractures Past Surgical History: Reports: Hx Orthopedic Surgery - L hand with screws in place - Immunizations Hx Diphtheria, Pertussis, Tetanus Vaccination: Yes - unknown <SANG SAAVEDRA - Last Filed: 09/18/17 07:11> Review of Systems - Review of Systems Constitutional: No symptoms reported EENT: No symptoms reported Cardiovascular: No symptoms reported Respiratory: No symptoms reported Gastrointestinal: See HPI Genitourinary: No symptoms reported Male Genitourinary: No symptoms reported Musculoskeletal: No symptoms reported Skin: No symptoms reported Hematologic/Lymphatic: No symptoms reported Neurological/Psychological: No symptoms reported <SANG SAAVEDRA - Last Filed: 09/18/17 07:11> Physical Exam - General General appearance: Appears well In distress: None - HEENT Head: Normocephalic, Atraumatic Eyes: Normal Conjunctiva: Normal Extraocular movements intact: Yes Eyelashes: Normal Pupils: PERRL Nasal: Normal Mouth/Lips: Normal Mucous membranes: Normal Pharynx: Normal Neck: Normal - Respiratory Respiratory status: No respiratory distress Breath sounds: Normal. No: Decreased air movement, Wheezing - Cardiovascular Rhythm: Regular. No: Tachycardia Heart sounds: Normal auscultation, S1 appreciated, S2 appreciated - Abdominal Inspection: Normal Distension: No distension Tenderness: Tender - There is tenderness in the right lower quadrant specifically, guarding but no rebound tenderness, there is McBurney's point tenderness. Remaining abdomen is soft and unremarkable. - Back Back: Normal, Nontender. 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 Sensory: Normal - Skin Skin Temperature: Warm Skin Moisture: Dry Skin Color: Normal <SANG SAAVEDRA - Last Filed: 09/18/17 07:11> - Vital signs Vitals: Temp Pulse BP Pulse Ox 98.7 F 65 97/62 L 93 09/17/17 22:11 09/17/17 22:11 09/17/17 22:11 09/17/17 22:11 Course - Laboratory Result Diagrams: 09/17/17 22:23 09/17/17 22:23 <SANG SAAVEDRA - Last Filed: 09/18/17 07:11> - Laboratory Result Diagrams: 09/17/17 22:23 09/17/17 22:23 <MILLICENT GILLILAND - Last Filed: 09/18/17 08:10> - Re-evaluation Re-evalutation: CAT scan from yesterday showing normal appendix, right nephrolithiasis with no evidence of passed stone, otherwise unremarkable. CBC yesterday and today are normal, chemistry yesterday and today are normal, urinalysis does not show hematuria suggesting passing stone. Patient with no flank pain. Pain is been persistent since yesterday, he does have focal tenderness on exam. Because of the focal tenderness is called and spoke with surgeon on-call Dr. Santos, he states he will come evaluate the patient. Dr. Santos recommends amylase and lipase be tested along with a CAT scan with IV and oral contrast. CAT scan with no acute findings. Still shows right nephrolithiasis without ureterolithiasis. Called and spoke with Dr. Santos, he recommends right upper quadrant ultrasound be performed. I discussed with patient, he is agreeable with this plan, states he is in some pain, requests medication, was given additional morphine. 09/18/17 07:05 Introduced at bedside to Millicent MAYO, she will assume care at this time pending ultrasound results to contact surgeon. (SANG SAAVEDRA) 09/18/17 08:08 The ultrasound showed liver steatosis, normal gallbladder. Dr. Santos is been in the room and is going to admit him for observation with IV fluid. pain 3/5, tender mid to lower right pelvis, no guarding or rebound. 09/18/17 08:10 (MILLICENT GILLILAND) - Vital Signs Vital signs: Temp Pulse Resp BP Pulse Ox 98.7 F 60 18 111/69 92 09/17/17 22:11 09/18/17 01:04 09/18/17 06:30 09/18/17 07:30 09/18/17 07:30 - Laboratory Laboratory results interpreted by me: 09/17/17 09/17/17 22:23 23:57 Total Protein 6.1 L Urine Urobilinogen 2.0 H Discharge <SANG SAAVEDRA - Last Filed: 09/18/17 07:11> - Discharge Admitting Provider: Surgicalist <MILLICENT GILLILAND - Last Filed: 09/18/17 08:10> - Discharge Clinical Impression: Right sided abdominal pain Condition: Good Disposition: ADMITTED OBSERVATION
[2017-09-18 00:23] LABS: APPEARANCE,URINE CLEAR; BILIRUBIN,URINE NEGATIVE (NEGATIVE); COLOR,URINE YELLOW; GLUCOSE, URINE NEGATIVE (NEGATIVE); KETONES,URINE NEGATIVE (NEGATIVE); LEUKOCYTE ESTERASE,URINE NEGATIVE (NEGATIVE); NITRITE,URINE NEGATIVE (NEGATIVE); PROTEIN,URINE NEGATIVE (NEGATIVE); URINE SPECIFIC GRAVITY 1.023
[2017-09-18] MEDS ORDERED: MORPHINE SULFATE 10 MG/ML INJ IV ONE ×2 (01:18→06:13)
[2017-09-18 01:19] LABS: LIPASE 67.6 U/L (23-300)
--- NOTE | 2017-09-18 06:01 | RADIOLOGY REPORT (SQ) ---
EXAM DESCRIPTION: CT abdomen pelvis with IV contrast CLINICAL HISTORY: 27 years Male, R sided abd pain. DX 09/16/17 with MILD DIVERTICULOSIS COLI. COMPARISON: 09.16.17 TECHNIQUE: IV contrast. Coronal and sagittal reformat. This exam was performed according to our departmental dose-optimization program, which includes automated exposure control, adjustment of the mA and/or kV according to patient size and/or use of iterative reconstruction technique. FINDINGS: Uncomplicated right renal stones measure up to 0.2 cm each. Small bibasilar atelectasis or scar. Normal appendix. No free fluid. Unenhanced lower thorax, abdominopelvic structures, and musculoskeleton appear otherwise grossly unremarkable. Impression: No acute findings. Small right nephrolithiasis.
[2017-09-18] MEDS ORDERED: MORPHINE SULFATE 10 MG/ML INJ ONE (06:30)
--- NOTE | 2017-09-18 07:18 | RADIOLOGY REPORT (SQ) ---
EXAM DESCRIPTION: US ABDOMEN LIMITED CLINICAL HISTORY: 27 years Male, RIGHT SIDED ABDOMINAL PAIN Comparison: None. LIMITATIONS: Bowel gas artifact. FINDINGS: Gallbladder, negative sonographic Bustamante's test, mild hepatic steatosis, a 0.4-cm diameter common bile duct, no intrahepatic ductal dilation, 11-cm right kidney, partially obscured pancreas, visualized vasculature/abdominal aorta, and no significant ascites appear otherwise unremarkable. IMPRESSION: No acute findings. Hepatic steatosis.
[2017-09-18] MEDS ORDERED: NORMAL SALINE 1000 ML 1,000 ML IV ONE (08:09)
[2017-09-18] MEDS ORDERED: NORMAL SALINE 1000 ML 1,000 ML IV PRN (08:26)
--- NOTE | 2017-09-18 08:26 | PDOC H&P ---
History of Present Illness Patient complains of: Abdominal pain History of Present Illness: DAI BOONE is a 27 year old male who was in usual state of good health up until about 6 days ago when he began to have diarrhea with some blood per rectum along with crampy abdominal pain and anorexia. The diarrhea has since resolved however patient began to experience right-sided abdominal pain for the past couple of days. He was seen in the emergency room 2 nights ago and had a CT scan that was negative other than kidney stones on the right that appeared nonobstructive. He was discharged with instructions to follow-up with urology but he return back to the ER last night with worsened right-sided abdominal pain. Patient denies any fevers or chills. The pain is waxing and waning and severe. He states that he has a hard time getting comfortable. He denies any prior history of this sort of pain. There is no family history of gastrointestinal illnesses. Past Medical History Pulmonary Medical History: Reports: Bronchitis Musculoskeltal Medical History: Reports: Arthritis Past Surgical History Past Surgical History: Reports: Orthopedic Surgery - L hand with screws in place Social History Lives with: Spouse/Significant other Smoking Status: Never Smoker Frequency of Alcohol Use: None Family History Family History: Reviewed & Not Pertinent Parental Family History Reviewed: No Children Family History Reviewed: No Sibling(s) Family History Reviewed.: No Medication/Allergy Home Medications: Ondansetron [Zofran Odt 4 mg Tablet] 1 - 2 tab PO Q4H PRN #15 tab.rapdis Allergies/Adverse Reactions: No Known Drug Allergies Allergy (Verified 09/16/17 17:47) bee sting Allergy (Uncoded 09/16/17 17:47) Physical Exam Vital Signs: Temp Pulse Resp BP Pulse Ox 98.7 F 60 18 111/69 92 09/17/17 22:11 09/18/17 01:04 09/18/17 06:30 09/18/17 07:30 09/18/17 07:30 Intake & Output 09/17/17 09/18/17 09/19/17 06:59 06:59 06:59 Weight 123.1 kg General appearance: PRESENT: no acute distress, cooperative Eye exam: PRESENT: conjunctiva pink Neck exam: PRESENT: other - Neck is supple with no tenderness. Respiratory exam: PRESENT: clear to auscultation richardson Cardiovascular exam: PRESENT: RRR GI/Abdominal exam: PRESENT: other - Soft, nondistended, tenderness along the right abdomen without peritoneal signs. More so in the right mid to right upper abdomen. The tenderness has improved from last night. Extremities exam: PRESENT: other - No swelling Neurological exam: PRESENT: alert, awake Psychiatric exam: PRESENT: appropriate affect Skin exam: PRESENT: warm Results Laboratory Results: 09/17/17 22:23 09/17/17 22:23 09/17/17 09/17/17 09/17/17 22:23 22:23 22:23 WBC 8.1 RBC 5.37 Hgb 15.1 Hct 45.2 MCV 84 MCH 28.1 MCHC 33.3 RDW 14.0 Plt Count 321 Seg Neutrophils % 57.0 Lymphocytes % 33.3 Monocytes % 6.2 Eosinophils % 2.6 Basophils % 0.9 Absolute Neutrophils 4.6 Absolute Lymphocytes 2.7 Absolute Monocytes 0.5 Absolute Eosinophils 0.2 Absolute Basophils 0.1 Sodium 141.5 Potassium 4.2 Chloride 105 Carbon Dioxide 30 Anion Gap 7 BUN 9 Creatinine 1.05 Est GFR ( Amer) > 60 Est GFR (Non-Af Amer) > 60 Glucose 97 Calcium 9.6 Total Bilirubin 0.5 AST 25 ALT 38 Alkaline Phosphatase 51 Total Protein 6.1 L Albumin 3.7 Amylase 45 Lipase 67.6 Urine Color Urine Appearance Urine pH Ur Specific [place] Urine Protein Urine Glucose (UA) Urine Ketones Urine Blood Urine Nitrite Ur Leukocyte Esterase Urine WBC (Auto) Urine RBC (Auto) 09/17/17 23:57 WBC RBC Hgb Hct MCV MCH MCHC RDW Plt Count Seg Neutrophils % Lymphocytes % Monocytes % Eosinophils % Basophils % Absolute Neutrophils Absolute Lymphocytes Absolute Monocytes Absolute Eosinophils Absolute Basophils Sodium Potassium Chloride Carbon Dioxide Anion Gap BUN Creatinine Est GFR ( Amer) Est GFR (Non-Af Amer) Glucose Calcium Total Bilirubin AST ALT Alkaline Phosphatase Total Protein Albumin Amylase Lipase Urine Color YELLOW Urine Appearance CLEAR Urine pH 5.0 Ur Specific [place] 1.023 Urine Protein NEGATIVE Urine Glucose (UA) NEGATIVE Urine Ketones NEGATIVE Urine Blood NEGATIVE Urine Nitrite NEGATIVE Ur Leukocyte Esterase NEGATIVE Urine WBC (Auto) 1 Urine RBC (Auto) 0 Impressions: Abdomen Ultrasound 09/18/17 00:00 IMPRESSION: No acute findings. Hepatic steatosis. Assessment & Plan - Diagnosis (1) Right sided abdominal pain Is this a current diagnosis for this admission?: Yes Plan: Patient had a diarrheal illness several days ago that has since resolved but he has right sided abdominal pain of unknown etiology. He does not have peritoneal signs and CT scan was unremarkable other than nonobstructive kidney stones. Symptoms that certainly could be due to his kidney stones. Will admit the patient for observation. Keep the patient n.p.o. IV hydration. IV pain meds for pain control. Gastroenterology and urology consultation would be helpful but that we do not have these 2 specialist available at our hospital at this time. If he does not have improvement and he has persistent tenderness on the right side will consider a colonoscopy during this admission. If he does have improvement, will make a referral to gastroenterology as an outpatient in light of his history of bloody diarrhea. Will also have him keep his urology outpatient evaluation appointment as well.
[2017-09-18] MEDS: MORPHINE SULFATE 10 MG/ML INJ IV PRN ×2 (09:53→22:16)
[2017-09-18] MEDS ORDERED: ACETAMINOPHEN 325 MG TABLET PO PRN (16:03)
[2017-09-18] MEDS ORDERED: ACETAMINOPHEN 325 MG TABLET ONE (16:07)
--- NOTE | 2017-09-18 19:14 | PDOC PROGRESS REPORT ---
Subjective Progress Note for:: 09/18/17 Subjective:: Feels better. Abdominal pain has markedly improved. Hungry Reason For Visit: RIGHT SIDED ABDOMINAL PAIN Physical Exam Vital Signs: Temp Pulse Resp BP Pulse Ox 98.2 F 57 L 16 115/66 96 09/18/17 15:53 09/18/17 15:53 09/18/17 15:53 09/18/17 15:53 09/18/17 15:53 Intake & Output 09/17/17 09/18/17 09/19/17 06:59 06:59 06:59 Intake Total 1088 Output Total 725 Balance 363 Weight 117.3 kg General appearance: PRESENT: no acute distress, cooperative GI/Abdominal exam: PRESENT: other - Soft, nondistended, minimal right-sided abdominal tenderness. Results Impressions: Abdomen Ultrasound 09/18/17 00:00 IMPRESSION: No acute findings. Hepatic steatosis. Assessment & Plan - Diagnosis (1) Right sided abdominal pain Is this a current diagnosis for this admission?: Yes Plan: Improved. Will try food. If patient continues to improve will plan discharge home tomorrow with follow-up with urology and also outpatient gastroenterology evaluation for his history of bloody diarrhea.
[2017-09-19 05:17] LABS: HEMATOCRIT 41.7 % (37.9-51.0); HEMOGLOBIN 14.1 g/dL (13.5-17.0); MEAN CORPUSCULAR HGB CONC 33.8 g/dL (32.0-36.0); MEAN CORPUSCULAR VOLUME 83 fl (80-97); PLATELET COUNT 282 10^3/uL (150-450); RED BLOOD COUNT 5.04 10^6/uL (4.35-5.55); RED CELL DISTRIBUTION WIDTH 13.8 % (11.5-14.0); WHITE BLOOD COUNT 6.5 10^3/uL (4.0-10.5)
[2017-09-19 05:33] LABS: ANION GAP 10 (5-19); BLOOD UREA NITROGEN 10 mg/dL (7-20); CARBON DIOXIDE 27 mmol/L (22-30); CHLORIDE 108 mmol/L (98-107); GLUCOSE 100 mg/dL (75-110); POTASSIUM 4.3 mmol/L (3.6-5.0); SODIUM 144.6 mmol/L (137-145)
[2017-09-19 08:07] VITALS: BP 107/64
--- NOTE | 2017-09-19 09:25 | PDOC DISCHARGE SUMMARY ---
General - Admit/Disc Date/PCP Admission Date/Primary Care Provider: 09/18/17 08:25 Discharge Date: 09/19/17 - Discharge Diagnosis (1) Kidney stone Is this a current diagnosis for this admission?: Yes (2) Hematochezia Is this a current diagnosis for this admission?: Yes (3) Right lower quadrant abdominal pain Is this a current diagnosis for this admission?: Yes - Additional Information Discharge Diet: Regular Discharge Activity: Activity As Tolerated History of Present Illness Patient complains of: Abdominal pain History of Present Illness: DAI BOONE is a 27 year old male admitted to the hospital with right lower quadrant abdominal pain. The patient does report hematochezia several days ago. It has since subsided. The pain has been persistent and worsening over the last several days. He was discharged from the emergency department, however his pain increased. He represented to the emergency department, was given pain medicine, IV fluids, and observed overnight. His white blood cell count was normal on admission. Patient underwent CT scanning showing no sign of appendicitis, no sign of lightest, and the presence of small kidney stones. Hospital Course Hospital Course: The patient was admitted to the hospital and observed overnight. The patient was maintained on IV fluids and pain medications. His pain is much improved today. The patient denies any nausea, vomiting, hematemesis, hematochezia, or melena. Patient is tolerating a diet. On CT, the patient does have bilateral, fat-containing inguinal hernias. On exam, the patient has no significant tenderness. I do not believe these are causing his symptoms. I have arranged follow-up with gastroenterology to investigate his hematochezia. The patient is due to see urology in several days. At this time, I believe the patient has reached maximal hospital benefit. He is stable for discharge. Physical Exam Vital Signs: Temp Pulse Resp BP Pulse Ox 97.7 F 65 17 107/64 98 09/19/17 08:00 09/19/17 08:00 09/19/17 08:00 09/19/17 08:00 09/19/17 08:00 Intake & Output 09/18/17 09/19/17 09/20/17 06:59 06:59 06:59 Intake Total 3067 Output Total 734 Balance 2333 Weight 117.8 kg Results Laboratory Results: 09/19/17 04:02 09/19/17 04:02 09/19/17 09/19/17 04:02 04:02 WBC 6.5 RBC 5.04 Hgb 14.1 Hct 41.7 MCV 83 MCH 28.0 MCHC 33.8 RDW 13.8 Plt Count 282 Sodium 144.6 Potassium 4.3 Chloride 108 H Carbon Dioxide 27 Anion Gap 10 BUN 10 Creatinine 1.04 Est GFR ( Amer) > 60 Est GFR (Non-Af Amer) > 60 Glucose 100 Calcium 9.0 Impressions: Abdomen Ultrasound 09/18/17 00:00 IMPRESSION: No acute findings. Hepatic steatosis. Qualifiers - * PATIENT BEING DISCHARGED WITH ANY OF THE FOLLOWING DIAGNOSIS: No Plan Discharge Plan: Discharge home. Diet: As tolerated. Activity: As tolerated. Follow-up with me, next week. Call for appointment. Follow-up with gastroenterology October 13 at 8 AM. Follow-up with urology next Friday. Medication: Ultram 50 mg p.o. every 6 hours as needed pain, dispense 20, no refills. 40 minutes time was spent with the patient arranging discharge, discussing plan of care, and arranging follow-up. The patient and his are in agreement with the treatment plan. Time Spent: Greater than 30 Minutes
[2017-09-19] MEDS: MORPHINE SULFATE 10 MG/ML INJ IV PRN (09:50)
== END 2017-09-19 10:41 | disposition home or self-care (01) ==
LOC: ER 21:34 → EH 09-18 08:25 → 5 09-18 09:19
PROVIDERS: ATTEND Surgery
DX: N20.0 Calculus of kidney (principal); K92.1 Melena; R10.31 Right lower quadrant pain; K40.10 Bilateral inguinal hernia, with gangrene, not specified as recurrent; K76.0 Fatty (change of) liver, not elsewhere classified; R19.7 Diarrhea, unspecified
CPT/HCPCS: 96376; 99285; 96361; 96374; 96375; 36415 ×3; 82150; 83690; 85025; 85027; 80048; 80053; 81001; 76705; 74177; J2270 ×2; J2405; J7030 ×2; G0378

== ENCOUNTER 2017-10-07 21:43 | Emergency (ER) | payer OTHER ==
[2017-10-07] MEDS ORDERED: ONDANSETRON 4 MG TAB.RAPDIS PO ONE (23:25)
[2017-10-07] MEDS ORDERED: OXYCODONE-ACETAMINOPHEN 5-325 MG TABLET PO ONE (23:25)
[2017-10-07 23:48] LABS: ABSOLUTE BASOPHILS # (AUTO) 0.1 10^3/uL (0.0-0.2); ABSOLUTE EOSINOPHILS # (AUTO) 0.3 10^3/uL (0.0-0.6); ABSOLUTE LYMPHOCYTES (AUTO) 3.5 10^3/uL (0.5-4.7); ABSOLUTE MONOCYTES (AUTO) 0.5 10^3/uL (0.1-1.4); ABSOLUTE NEUT (AUTO) 4.6 10^3/uL (1.7-8.2); BASOPHILS % (AUTO) 1.2 % (0-2); EOSINOPHILS % (AUTO) 3.2 % (0-6); HEMATOCRIT 46.4 % (37.9-51.0); HEMOGLOBIN 15.5 g/dL (13.5-17.0); LYMPHOCYTES % (AUTO) 38.6 % (13-45); MEAN CORPUSCULAR HEMOGLOBIN 28.1 pg (27.0-33.4); MEAN CORPUSCULAR HGB CONC 33.5 g/dL (32.0-36.0); MEAN CORPUSCULAR VOLUME 84 fl (80-97); MONOCYTES % (AUTO) 5.8 % (3-13); PLATELET COUNT 357 10^3/uL (150-450); RED BLOOD COUNT 5.53 10^6/uL (4.35-5.55); RED CELL DISTRIBUTION WIDTH 13.7 % (11.5-14.0); SEGMENTED NEUTROPHILS % (AUTO) 51.2 % (42-78); TOTAL CELLS COUNTED % (AUTO) 100 %; WHITE BLOOD COUNT 9.1 10^3/uL (4.0-10.5)
[2017-10-07 23:56] LABS: APPEARANCE,URINE CLEAR; BILIRUBIN,URINE NEGATIVE (NEGATIVE); COLOR,URINE YELLOW; GLUCOSE, URINE NEGATIVE (NEGATIVE); KETONES,URINE NEGATIVE (NEGATIVE); LEUKOCYTE ESTERASE,URINE NEGATIVE (NEGATIVE); NITRITE,URINE NEGATIVE (NEGATIVE); PROTEIN,URINE NEGATIVE (NEGATIVE); URINE SPECIFIC GRAVITY 1.028
[2017-10-08 00:02] LABS: ALANINE AMINOTRANSFERASE 33 U/L (21-72); ALBUMIN 4.3 g/dL (3.5-5.0); ALKALINE PHOSPHATASE 64 U/L (38-126); ANION GAP 13 (5-19); ASPARTATE AMINO TRANSFERASE 27 U/L (17-59); BILIRUBIN,DIRECT 0.3 mg/dL (0.0-0.4); BILIRUBIN,TOTAL 0.4 mg/dL (0.2-1.3); BLOOD UREA NITROGEN 10 mg/dL (7-20); CALCIUM 10.5 mg/dL (8.4-10.2); CARBON DIOXIDE 24 mmol/L (22-30); CHLORIDE 108 mmol/L (98-107); GLUCOSE 100 mg/dL (75-110); LIPASE 112.5 U/L (23-300); POTASSIUM 4.4 mmol/L (3.6-5.0); TOTAL PROTEIN 7.1 g/dL (6.3-8.2)
[2017-10-08] MEDS ORDERED: KETOROLAC TROMETHAMINE 60 MG/2 ML SDV IM ONE (00:38)
--- NOTE | 2017-10-08 00:40 | ER Document Report ---
ED General - General Chief Complaint: Possible Kidney Stone Stated Complaint: FLANK PAIN Time Seen by Provider: 10/07/17 23:24 TRAVEL OUTSIDE OF THE [place] IN LAST 30 DAYS: No - HPI Patient complains to provider of: Right-sided abdominal pain Notes: Patient coming in for right-sided abdominal pain flank pain ongoing since earlier this morning. Patient states history of kidney stones or greasy admitted for further evaluation of some right-sided abdominal pain chills or diarrhea. Patient denies any trauma. Patient resting company upon my evaluation - Related Data Allergies/Adverse Reactions: No Known Drug Allergies Allergy (Verified 10/07/17 23:48) bee sting Allergy (Uncoded 09/16/17 17:47) Past Medical History - Social History Smoking Status: Never Smoker Chew tobacco use (# tins/day): No Frequency of alcohol use: None Drug Abuse: None Family History: Reviewed & Not Pertinent Patient has suicidal ideation: No Patient has homicidal ideation: No Pulmonary Medical History: Reports: Hx Bronchitis Renal/ Medical History: Denies: Hx Peritoneal Dialysis Musculoskeltal Medical History: Reports Hx Arthritis, Reports Hx Musculoskeletal Trauma Traumatic Medical History: Reports: Hx Fractures Past Surgical History: Reports: Hx Orthopedic Surgery - L hand with screws in place - Immunizations Hx Diphtheria, Pertussis, Tetanus Vaccination: Yes - unknown Review of Systems - Review of Systems Constitutional: No symptoms reported EENT: No symptoms reported Cardiovascular: No symptoms reported Respiratory: No symptoms reported Gastrointestinal: Abdominal pain Genitourinary: No symptoms reported Male Genitourinary: No symptoms reported Musculoskeletal: No symptoms reported Skin: No symptoms reported Hematologic/Lymphatic: No symptoms reported Neurological/Psychological: No symptoms reported -: Yes All other systems reviewed and negative Physical Exam - Vital signs Vitals: Temp Pulse Resp BP Pulse Ox 99.1 F 83 20 109/78 95 10/07/17 22:27 10/07/17 22:27 10/07/17 22:27 10/07/17 22:27 10/07/17 22:27 Interpretation: Normal - General General appearance: Appears well, Alert - HEENT Head: Normocephalic, Atraumatic Eyes: Normal Pupils: PERRL - Respiratory Respiratory status: No respiratory distress Chest status: Nontender Breath sounds: Normal Chest palpation: Normal - Cardiovascular Rhythm: Regular Heart sounds: Normal auscultation Murmur: No - Abdominal Inspection: Normal Distension: No distension Bowel sounds: Normal Tenderness: Nontender Organomegaly: No organomegaly - Back Back: Normal, Nontender - Extremities General upper extremity: Normal inspection, Nontender, Normal color, Normal ROM , Normal temperature General lower extremity: Normal inspection, Nontender, Normal color, Normal ROM , Normal temperature, Normal weight bearing. No: Carlita's sign - Neurological Neuro grossly intact: Yes Cognition: Normal Orientation: AAOx4 Enders Coma Scale Eye Opening: Spontaneous Tiki Coma Scale Verbal: Oriented Enders Coma Scale Motor: Obeys Commands Tiki Coma Scale Total: 15 Speech: Normal Motor strength normal: LUE, RUE, LLE, RLE Sensory: Normal - Psychological Associated symptoms: Normal affect, Normal mood - Skin Skin Temperature: Warm Skin Moisture: Dry Skin Color: Normal Course - Re-evaluation Re-evalutation: 10/08/17 03:46 The patient presents with abdominal pain without signs of peritonitis or other life-threatening or serious etiology. The patient appears stable for discharge and has been instructed to return immediately if the symptoms worsen in any way , or in 8-12hr if not improved for re-evaluation. The patient has been instructed to return if the symptoms worsen or change in any way. Patient's laboratory studies not reveal any significant pathology. There is no hematuria or red blood cells on the patient's urinalysis significant with passing of a kidney stone. The reviewed patient's 2 CAT scans recently performed and his ultrasound do not believe there is any reason to perform any further radiographical studies at this time patient will be discharged home with Toradol for pain control - Vital Signs Vital signs: Temp Pulse Resp BP Pulse Ox 99.1 F 83 20 109/78 95 10/07/17 22:27 10/07/17 22:27 10/07/17 22:27 10/07/17 22:27 10/07/17 22:27 - Laboratory Result Diagrams: 10/07/17 23:30 10/07/17 23:30 Laboratory results interpreted by me: 10/07/17 10/07/17 23:30 23:30 Chloride 108 H Calcium 10.5 H Urine Urobilinogen 2.0 H Discharge - Discharge Clinical Impression: Right sided abdominal pain Condition: Good Instructions: Abdominal Pain ([facility]), Observation for Appendicitis ([facility]) Additional Instructions: Follow-up with your primary care physician. Return to ER symptoms worsen. At this time your laboratory studies not show any signs of infection. Urinalysis does not show any signs of kidney stone. If you develop a fever temperature over 101 please return to ER for further evaluation. Take medication as prescribed. Prescriptions: Ketorolac Tromethamine [Toradol 10 mg Tablet] 10 mg PO Q8HP PRN #20 tablet PRN Reason: Ondansetron [Zofran Odt] 4 mg PO Q6 PRN #30 tab.rapdis PRN Reason: For Nausea/Vomiting Forms: Return to Work
[2017-10-08 01:23] VITALS: BP 116/72
== END 2017-10-08 01:23 | disposition home or self-care (01) ==
LOC: ER 21:43
DX: R10.9 Unspecified abdominal pain (principal); Z91.030 Bee allergy status
CPT/HCPCS: 99284; 96372; 36415; 83690; 85025; 80053; 81001; J1885; S0119

== ENCOUNTER 2017-10-30 13:22 | Emergency (ER) | payer OTHER ==
[2017-10-30 13:28] VITALS: BP 126/74
[2017-10-30] MEDS ORDERED: HYDROCODONE/ACETAMINOPHEN 5-325 MG TABLET PO ONE (13:48)
[2017-10-30] MEDS ORDERED: NAPROXEN 250 MG TABLET PO ONE (13:48)
--- NOTE | 2017-10-30 13:52 | ER Document Report ---
ED GI/ - General Chief Complaint: Flank Pain Stated Complaint: STOMACH PAIN Time Seen by Provider: 10/30/17 13:33 Notes: The patient is a 27-year-old male, past medical history multiple kidney stones, presents with right flank pain radiating to his groin and some hematuria. He says this feels similar to his prior kidney stones. He has always been able to pass them on their own and has not required any surgical intervention. Denies fevers, current nausea or vomiting, testicular pain, diarrhea, constipation or dysuria. TRAVEL OUTSIDE OF THE [place] IN LAST 30 DAYS: No - Related Data Allergies/Adverse Reactions: No Known Drug Allergies Allergy (Verified 10/30/17 13:43) bee sting Allergy (Uncoded 10/30/17 13:43) Past Medical History - General Information source: Patient - Social History Smoking Status: Never Smoker Chew tobacco use (# tins/day): No Frequency of alcohol use: None Drug Abuse: None Family History: Reviewed & Not Pertinent Patient has suicidal ideation: No Patient has homicidal ideation: No Pulmonary Medical History: Reports: Hx Bronchitis Renal/ Medical History: Reports: Hx Kidney Stones. Denies: Hx Peritoneal Dialysis Musculoskeltal Medical History: Reports Hx Arthritis, Reports Hx Musculoskeletal Trauma Traumatic Medical History: Reports: Hx Fractures Past Surgical History: Reports: Hx Orthopedic Surgery - L hand with screws in place - Immunizations Hx Diphtheria, Pertussis, Tetanus Vaccination: Yes - unknown Review of Systems - Review of Systems Notes: REVIEW OF SYSTEMS: CONSTITUTIONAL: -fevers, -chills EENT: -eye pain, -difficulty swallowing, -nasal congestion CARDIOVASCULAR: -chest pain, -syncope. RESPIRATORY: -cough, -SOB GASTROINTESTINAL: -abdominal pain, -nausea, -vomiting, -diarrhea GENITOURINARY: -dysuria, +hematuria MUSCULOSKELETAL: +right flank pain, -neck pain SKIN: -rash or skin lesions. HEMATOLOGIC: -easy bruising or bleeding. LYMPHATIC: -swollen, enlarged glands. NEUROLOGICAL: -altered mental status or loss of consciousness, -headache, - neurologic symptoms PSYCHIATRIC: -anxiety, -depression. ALL OTHER SYSTEMS REVIEWED AND NEGATIVE. Physical Exam - Vital signs Vitals: Temp Pulse Resp BP Pulse Ox 98.8 F 73 17 126/74 H 95 10/30/17 13:27 10/30/17 13:27 10/30/17 13:27 10/30/17 13:27 10/30/17 13:27 - Notes Notes: PHYSICAL EXAMINATION: GENERAL: Well-appearing, well-nourished. Uncomfortable. HEAD: Atraumatic, normocephalic. EYES: Pupils equal round and reactive to light, extraocular movements intact, sclera anicteric, conjunctiva are normal. ENT: nares patent, oropharynx clear without exudates. Moist mucous membranes. NECK: Normal range of motion, supple without lymphadenopathy LUNGS: Breath sounds clear to auscultation bilaterally and equal. No wheezes rales or rhonchi. HEART: Regular rate and rhythm without murmurs ABDOMEN: Soft, nontender, normoactive bowel sounds. No guarding, no rebound. No masses appreciated. EXTREMITIES: Normal range of motion, no pitting or edema. No cyanosis. NEUROLOGICAL: Cranial nerves grossly intact. Normal speech, normal gait. Normal sensory and motor exams. PSYCH: Normal mood, normal affect. SKIN: Warm, Dry, normal turgor, no rashes or lesions noted. Course - Re-evaluation Re-evalutation: Patient with signs and symptoms of his previously known kidney stones on the right side. Urinalysis does not show any evidence of infection or septic stone. Patient is artery had multiple CAT scans confirmed the multiple small right renal stones. Discharge patient home with instructions to use anti- inflammatories and morphine for severe pain. Accidentally placed [place] in his discharge medication list, but did not print this prescription. Given strict return precautions and he understands. - Vital Signs Vital signs: Temp Pulse Resp BP Pulse Ox 98.8 F 73 17 126/74 H 95 10/30/17 13:27 10/30/17 13:27 10/30/17 13:27 10/30/17 13:27 10/30/17 13:27 - Laboratory Laboratory results interpreted by or: 10/30/17 13:31 Urine Ketones TRACE H Urine Urobilinogen 4.0 H Discharge - Discharge Clinical Impression: Right flank pain, Kidney stone Condition: Stable Disposition: HOME, SELF-CARE Additional Instructions: KIDNEY STONE: You are passing or have passed a kidney stone. These stones are usually due to increased calcium or uric acid concentrations in your urine. Stones within the kidney itself are not painful. The pain occurs as the stone leaves the kidney to pass down the long tube, called the ureter, leading to the bladder. If the stone is small, it will usually pass by itself. Most patients can pass the stone at home. You will usually receive medications for pain, nausea or vomiting, and sometimes a medication to assist in passing the kidney stone. However, if the pain is very severe or if vomiting prevents you from taking oral pain medications, you may need to return for further treatment. Drink three or four quarts of fluids per day. You will be given pain medication (if needed) and urine strainers. Strain all your urine to see if the stone passes. If your doctor has asked you to bring the stone in for analysis, return with the stone once it has passed. Return if pain or vomiting become severe, if you develop a high fever, if you are unable to pass your urine, or if other unusual symptoms occur. ORAL NARCOTIC MEDICATION: You have been given a prescription for pain control. This medication is a narcotic. It's best taken with food, as nausea can result if taken on an empty stomach. Don't operate machinery or drive within six hours of taking this medication. Do not combine this medicine with alcohol, or with any medication which can cause sedation (such as cold tablets or sleeping pills) unless you get permission from the physician. Narcotics tend to cause constipation. If possible, drink plenty of fluids and eat a diet high in fiber and fruits. Please be aware that prescription narcotics also have the potential for abuse. People become addicted to these medications because of the general sense of wellbeing that they induce. This feeling along with a significant reduction in tension, anxiety, and aggression provides a stimulating seductive quality to these drugs. Once your pain is under control, we encourage you to discard your unused narcotics. FOLLOW-UP CARE: If you have been referred to a physician for follow-up care, call the physician s office for an appointment as you were instructed or within the next two days. If you experience worsening or a significant change in your symptoms, notify the physician immediately or return to the Emergency Department at any time for re-evaluation. Prescriptions: Hydrocodone/Acetaminophen [[place] 5-325 mg Tablet] 1 tab PO Q6H PRN #10 tablet PRN Reason: Morphine Sulfate [Morphine Ir 15 Mg Tablet] 15 mg PO Q4H PRN #10 tablet PRN Reason: Forms: Elevated Blood Pressure, Return to Work Referrals: [facility] [Provider Group] - Follow up as needed
[2017-10-30 14:15] LABS: APPEARANCE,URINE CLEAR; BILIRUBIN,URINE NEGATIVE (NEGATIVE); COLOR,URINE YELLOW; GLUCOSE, URINE NEGATIVE (NEGATIVE); KETONES,URINE TRACE mg/dL (NEGATIVE); LEUKOCYTE ESTERASE,URINE NEGATIVE (NEGATIVE); NITRITE,URINE NEGATIVE (NEGATIVE); PROTEIN,URINE NEGATIVE (NEGATIVE); URINE SPECIFIC GRAVITY 1.026
== END 2017-10-30 15:20 | disposition home or self-care (01) ==
LOC: ER 13:22
DX: N20.0 Calculus of kidney (principal); R10.9 Unspecified abdominal pain; R10.30 Lower abdominal pain, unspecified; R31.9 Hematuria, unspecified
CPT/HCPCS: 81001; 99284

== ENCOUNTER 2017-11-20 22:57 | Emergency (ER) | payer OTHER ==
--- NOTE | 2017-11-21 00:11 | ER Document Report ---
ED Medical Screen (RME) - General Chief Complaint: Rib Pain Stated Complaint: RIB PAIN Time Seen by Provider: 11/21/17 00:09 Mode of Arrival: Ambulatory Information source: Patient Notes: 27-year-old male presents to ED for complaint of right rib pain to the front and back. He states he went under water slide on Friday and he must hit the side of the water slide when he was going down. He states his states he has a bruise to this area and it hurts to breathe. Lungs are clear to auscultation but he has tenderness to the right ribs. I have greeted and performed a rapid initial assessment of this patient. A comprehensive ED assessment and evaluation of the patient, analysis of test results and completion of medical decision making process will be conducted by an additional ED providers. TRAVEL OUTSIDE OF THE [place] IN LAST 30 DAYS: No - Related Data Allergies/Adverse Reactions: No Known Drug Allergies Allergy (Verified 10/30/17 13:43) bee sting Allergy (Uncoded 10/30/17 13:43) Past Medical History - Social History Family history: Reviewed & Not Pertinent Pulmonary Medical History: Reports: Hx Bronchitis Renal/ Medical History: Reports: Hx Kidney Stones. Denies: Hx Peritoneal Dialysis Musculoskeltal Medical History: Reports Hx Arthritis, Reports Hx Musculoskeletal Trauma Traumatic Medical History: Reports: Hx Fractures Past Surgical History: Reports: Hx Orthopedic Surgery - L hand with screws in place - Immunizations Hx Diphtheria, Pertussis, Tetanus Vaccination: Yes - unknown History of Influenza Vaccine for 02/2017 - 07/2017 Season: Unknown Physical Exam - Vital signs Vitals: Temp Pulse Resp BP Pulse Ox 98.7 F 89 18 124/81 97 11/20/17 22:57 11/20/17 22:57 11/20/17 22:57 11/20/17 22:57 11/20/17 22:57 Course - Vital Signs Vital signs: Temp Pulse Resp BP Pulse Ox 98.7 F 89 18 124/81 97 11/20/17 22:57 11/20/17 22:57 11/20/17 22:57 11/20/17 22:57 11/20/17 22:57
--- NOTE | 2017-11-21 01:28 | RADIOLOGY REPORT (SQ) ---
EXAM DESCRIPTION: XR RIBS UNILATERAL WITH CHEST COMPLETED DATE/TME: 11/21/2017 00:11 CLINICAL HISTORY: 27 years, Male, pain injury hurts to breath COMPARISON: 02/28/2016 FINDINGS: Single view of the chest and 2 views of the right ribs. Cardiomediastinal silhouette has normal size and contour. No consolidation, pneumothorax, or pleural effusion. Upper abdominal soft tissues are unremarkable. No acute rib fractures identified. IMPRESSION: No acute rib fractures identified. 2011 [employer]- All Rights Reserved
--- NOTE | 2017-11-21 02:36 | ER Document Report ---
ED General - General Chief Complaint: Rib Pain Stated Complaint: RIB PAIN Time Seen by Provider: 11/21/17 00:09 Mode of Arrival: Ambulatory Notes: Patient is a 27-year-old male without past medical history who presents with 2 days of right lower rib pain. The patient states that this pain started after he went [place] a water slide at a park repeatedly. He states that initially he had minimal pain to the area but over the past 48 hours it has become progressively worse. He describes it as an aching, stabbing, constant pain. Moving and breathing worsen the pain. He has not improved the pain. He denies any history of similar symptoms in the past. He has not seen his general doctor regarding today's concerns. He denies any associated hemoptysis, shortness of breath, nausea or vomiting. No history of DVT or pulmonary embolus. TRAVEL OUTSIDE OF THE [place] IN LAST 30 DAYS: No - Related Data Allergies/Adverse Reactions: No Known Drug Allergies Allergy (Verified 10/30/17 13:43) bee sting Allergy (Uncoded 10/30/17 13:43) Past Medical History - General Information source: Patient - Social History Smoking Status: Never Smoker Chew tobacco use (# tins/day): No Frequency of alcohol use: None Drug Abuse: None Lives with: Spouse/Significant other Family History: Reviewed & Not Pertinent Patient has suicidal ideation: No Patient has homicidal ideation: No Pulmonary Medical History: Reports: Hx Bronchitis Renal/ Medical History: Reports: Hx Kidney Stones. Denies: Hx Peritoneal Dialysis Musculoskeletal Medical History: Reports Hx Arthritis, Reports Hx Musculoskeletal Trauma Traumatic Medical History: Reports: Hx Fractures Past Surgical History: Reports: Hx Orthopedic Surgery - L hand with screws in place - Immunizations Hx Diphtheria, Pertussis, Tetanus Vaccination: Yes - unknown Review of Systems - Review of Systems Notes: Constitutional: Negative for fever. Eyes: Negative for visual changes. ENT: Negative for facial injury Cardiovascular: Negative for chest injury. Respiratory: Negative for shortness of breath. Gastrointestinal: Negative for abdominal injury. Genitourinary: Negative for genital injury Musculoskeletal: Positive for lower right rib pain Skin: Negative for laceration/abrasions. Neurological: Negative for head injury. Physical Exam - Vital signs Vitals: Temp Pulse Resp BP Pulse Ox 98.7 F 89 18 124/81 97 11/20/17 22:57 11/20/17 22:57 11/20/17 22:57 11/20/17 22:57 11/20/17 22:57 Interpretation: Normal Notes: PHYSICAL EXAMINATION: GENERAL: Well-appearing, well-nourished and in no acute distress. HEAD: Atraumatic, normocephalic. EYES: Pupils equal round and reactive to light, extraocular movements intact, sclera anicteric, conjunctiva are normal. ENT: nares patent, oropharynx clear without exudates. Moist mucous membranes. NECK: Normal range of motion, supple without lymphadenopathy LUNGS: Breath sounds clear to auscultation bilaterally and equal. No wheezes rales or rhonchi. HEART: Regular rate and rhythm without murmurs Chest wall: Reproducible pain on palpation of the lower 3 Ribs on the right side. No palpable deformity or bruising to the area. ABDOMEN: Soft, nontender, normoactive bowel sounds. No guarding, no rebound. No masses appreciated. EXTREMITIES: Normal range of motion, no pitting or edema. No cyanosis. NEUROLOGICAL: No focal neurological deficits. Moves all extremities spontaneously and on command. PSYCH: Normal mood, normal affect. SKIN: Warm, Dry, normal turgor, no rashes or lesions noted. Course - Re-evaluation Re-evalutation: 11/21/17 02:34 Patient presents after striking his rib on a water slide repeatedly complaining of focal pain to the affected area. No tachypnea or hypoxemia at time of arrival. Pain controlled here in the emergency department. Chest x-ray without evidence of acute fracture, pneumothorax or pulmonary contusion. At this time will discharge with return precautions and follow-up recommendations. Verbal discharge instructions given at the bedside and opportunity for questions given. Medication warnings reviewed. Patient is in agreement with this plan and has verbalized understanding of return precautions and the need for primary care follow-up in the next 24-72 hours. - Vital Signs Vital signs: Temp Pulse Resp BP Pulse Ox 98.4 F 72 14 129/81 H 98 11/21/17 02:42 11/21/17 02:42 11/21/17 02:42 11/21/17 02:42 11/21/17 02:42 - Diagnostic Test Radiology reviewed: Image reviewed, Reports reviewed Radiology results interpreted by me: 11/21/17 02:35 Chest x-ray: No acute infiltrate or pneumothorax. No rib fractures. Discharge - Discharge Clinical Impression: Rib pain on right side, Rib injury Condition: Good Disposition: HOME, SELF-CARE Additional Instructions: Your chest wall pain is due to bruising of your ribs. This pain can last for up to 6 weeks. It is very important that you continue to take purposeful deep breaths. For your pain: Continue to take naproxen 500 mg twice daily for the next 1 week. Apply local lidocaine to the area per bottle instructions. There is a product sold [id number] called "Aspercreme with lidocaine" that you can use for this purpose. Please follow-up with her primary care doctor in the next 2-3 days. Return to the emergency department immediately if you develop worsening shortness of breath, increased pain, begin coughing blood, pass out, or have any other symptoms that are worrisome to you. Prescriptions: Naproxen 500 mg PO BID #14 tablet
[2017-11-21 02:44] VITALS: BP 129/81
== END 2017-11-21 02:44 | disposition home or self-care (01) ==
LOC: ER 22:57
DX: S20.219A Contusion of unspecified front wall of thorax, initial encounter (principal); R07.81 Pleurodynia; Z91.030 Bee allergy status; Z87.442 Personal history of urinary calculi; M19.90 Unspecified osteoarthritis, unspecified site
CPT/HCPCS: 99283

== ENCOUNTER 2018-01-02 23:59 | Emergency (ER) | payer OTHER ==
[2018-01-03] MEDS ORDERED: MORPHINE SULFATE 10 MG/ML INJ IM ONE (01:59)
[2018-01-03] MEDS ORDERED: PREDNISONE 20 MG TABLET PO ONE (01:59)
[2018-01-03] MEDS ORDERED: ONDANSETRON 4 MG TAB.RAPDIS PO ONE (01:59)
--- NOTE | 2018-01-03 01:59 | ER Document Report ---
ED Neck/Back Problem - General Mode of Arrival: Ambulatory Information source: Patient TRAVEL OUTSIDE OF THE [place] IN LAST 30 DAYS: No <DHARA SUAREZ - Last Filed: 01/03/18 03:08> <BJ WHITE - Last Filed: 01/03/18 03:36> - General Chief Complaint: Back Injury Stated Complaint: BACK INJURY Time Seen by Provider: 01/03/18 01:18 Notes: Patient is a 27 year old male that presents to the emergency department today with complaints of back pain. Patient states that he was moving furniture and he "heard two pops in his back". Patient states he has not had any incontinence , saddle anesthesia, or syncopal events. (DHARA USAREZ) - Related Data Allergies/Adverse Reactions: No Known Drug Allergies Allergy (Verified 01/03/18 00:00) bee sting Allergy (Uncoded 01/03/18 00:00) Past Medical History - General Information source: Patient - Social History Smoking Status: Never Smoker Cigarette use (# per day): No Frequency of alcohol use: None Drug Abuse: None Lives with: Family Family History: Reviewed & Not Pertinent Pulmonary Medical History: Reports: Hx Bronchitis Renal/ Medical History: Reports: Hx Kidney Stones Musculoskeletal Medical History: Reports Hx Arthritis, Reports Hx Musculoskeletal Trauma Traumatic Medical History: Reports: Hx Fractures Past Surgical History: Reports: Hx Orthopedic Surgery - L hand with screws in place - Immunizations Hx Diphtheria, Pertussis, Tetanus Vaccination: Yes - unknown <DHARA SUAREZ - Last Filed: 01/03/18 03:08> Review of Systems - Review of Systems Constitutional: No symptoms reported EENT: No symptoms reported Cardiovascular: No symptoms reported Respiratory: No symptoms reported Gastrointestinal: No symptoms reported Genitourinary: No symptoms reported Male Genitourinary: No symptoms reported Musculoskeletal: See HPI, Back pain Skin: No symptoms reported Hematologic/Lymphatic: No symptoms reported Neurological/Psychological: No symptoms reported -: Yes All other systems reviewed and negative <DHARA SUAREZ - Last Filed: 01/03/18 03:08> Physical Exam - Vital signs Interpretation: Normal - General General appearance: Alert In distress: None - Appears uncomfortable - HEENT Head: Normocephalic, Atraumatic Eyes: Normal Pupils: PERRL - Respiratory Respiratory status: No respiratory distress Chest status: Nontender Breath sounds: Normal Chest palpation: Normal - Cardiovascular Rhythm: Regular Heart sounds: Normal auscultation Murmur: No - Abdominal Inspection: Normal Distension: No distension Bowel sounds: Normal Tenderness: Nontender Organomegaly: No organomegaly - Back Back: Normal - R SI TTP, R buttock TTP, Tender - Extremities General upper extremity: Normal inspection, Nontender, Normal color, Normal ROM , Normal temperature General lower extremity: Normal inspection, Nontender, Normal color, Normal ROM , Normal temperature, Normal weight bearing. No: Carlita's sign - Neurological Neuro grossly intact: Yes Cognition: Normal Orientation: AAOx4 Tiki Coma Scale Eye Opening: Spontaneous Tiki Coma Scale Verbal: Oriented Tiki Coma Scale Motor: Obeys Commands Tiki Coma Scale Total: 15 Speech: Normal Motor strength normal: LUE, RUE, LLE, RLE Sensory: Normal - Psychological Associated symptoms: Normal affect, Normal mood - Skin Skin Temperature: Warm Skin Moisture: Dry Skin Color: Normal <BJ WHITE - Last Filed: 01/03/18 03:36> - Vital signs Vitals: Temp Pulse Resp BP Pulse Ox 98.3 F 74 16 114/67 98 01/03/18 00:12 01/03/18 00:12 01/03/18 00:12 01/03/18 00:12 01/03/18 00:12 Course <DHARA SUAREZ - Last Filed: 01/03/18 03:08> - Diagnostic Test Radiology reviewed: Reports reviewed <BJ WHITE - Last Filed: 01/03/18 03:36> - Re-evaluation Re-evalutation: 01/03/18 03:35 Patient with no acute findings on x-ray. Feeling better after medications. Neurovascularly intact and able to ambulate. Patient is to follow-up with his primary care doctor and avoid any heavy lifting, pushing or pulling. Understands agrees with plan. Stable for discharge. (BJ WHITE) - Vital Signs Vital signs: Temp Pulse Resp BP Pulse Ox 98.3 F 74 16 114/67 98 01/03/18 00:12 01/03/18 00:12 01/03/18 00:12 01/03/18 00:12 01/03/18 00:12 Discharge <DHARA SUAREZ - Last Filed: 01/03/18 03:08> <BJ WHITE - Last Filed: 01/03/18 03:36> - Discharge Clinical Impression: Lower back injury Qualifiers: Encounter type: initial encounter Qualified Code(s): S39.92XA - Unspecified injury of lower back, initial encounter Condition: Stable Disposition: HOME, SELF-CARE Instructions: Ice Packs ([facility]), Low Back Pain ([facility]), Muscle Strain ([facility]) Additional Instructions: Please follow-up with your primary care doctor. You may also try a chiropractor: [facility] [address] Prescriptions: Cyclobenzaprine HCl [Flexeril 10 mg Tablet] 10 mg PO BIDP PRN #15 tab PRN Reason: Lidocaine [Lidoderm 5% (700 mg) Transdermal Patch] 1 patch TP DAILY #20 adh..patch Methylprednisolone [Medrol Dosepack (4 mg/Tab) 21 Tab/Dosepak] 4 mg PO ASDIR PRN #21 tab.ds.pk PRN Reason: Forms: Return to Work Scribe Attestation: 01/03/18 03:35 I personally performed the services described in the documentation, reviewed and edited the documentation which was dictated to the scribe in my presence, and it accurately records my words and actions. (BJ WHITE) Scribe Documentation - Scribe Written by Scribe:: Griselda Keys, 01/03/2018 0315 acting as scribe for :: Kushal <DHARA SUAREZ - Last Filed: 01/03/18 03:08>
--- NOTE | 2018-01-03 03:04 | RADIOLOGY REPORT (SQ) ---
CLINICAL DATA: 27-year-old male with pelvic pain following lifting furniture TECHNICAL DATA: A single AP x-ray of the pelvis was performed. COMPARISONS: None FINDINGS: There is no evidence of fracture or dislocation. There is no significant arthritis or degenerative change. No focal lytic or sclerotic bone lesions are seen. Bone mineralization is normal No focal soft tissue abnormalities are identified. IMPRESSION: No evidence of acute osseous injury involving the pelvis.
--- NOTE | 2018-01-03 03:08 | RADIOLOGY REPORT (SQ) ---
CLINICAL DATA: 27-year-old male with back pain following lifting furniture. TECHNICAL DATA: Five x-ray views of the lumbar spine were performed including an AP, lateral, bilateral obliques and coned lateral view of the lumbosacral junction. Comparison: Prior study performed on 07/11/2015.. FINDINGS: There are five lumbar vertebral bodies. The lumbar vertebrae are normal in height and alignment. The disc spaces are well preserved in height. There is no evidence of acute fracture or subluxation. There is probable incomplete fusion of the right L1 transverse process. Bone mineralization is within normal limits. No focal lytic or sclerotic bone lesions are identified. No arthritic changes or degenerative changes are identified. The sacroiliac joints are normal. The pedicles are intact bilaterally and are symmetric. The facet joints are unremarkable. The surrounding soft tissues are unremarkable. IMPRESSION: No evidence of acute osseous injury involving the lumbar spine.
[2018-01-03] MEDS ORDERED: HYDROCODONE/ACETAMINOPHEN 5-325 MG (6 TAB/ER DISP) PO PRN (03:35)
[2018-01-03 06:58] VITALS: BP 110/68
== END 2018-01-03 03:50 | disposition home or self-care (01) ==
LOC: ER 23:59
DX: S39.92XA Unspecified injury of lower back, initial encounter (principal); X50.9XXA Other and unspecified overexertion or strenuous movements or postures, initial encounter; Y93.89 Activity, other specified; M19.90 Unspecified osteoarthritis, unspecified site; Z87.81 Personal history of (healed) traumatic fracture
CPT/HCPCS: 99283; 96372; 72110; 72170; S0119; J2270; J7512

== ENCOUNTER 2018-01-03 17:32 | Emergency (ER) | payer OTHER ==
--- NOTE | 2018-01-03 17:58 | ER Document Report ---
ED Extremity Problem, Lower - General Chief Complaint: Knee Injury Stated Complaint: KNEE INJURY Time Seen by Provider: 01/03/18 17:46 Mode of Arrival: Wheelchair Information source: Patient Notes: 27-year-old male presents to ED for complaint of right knee and tib-fib pain. He states he fell out of a adequate and the latter. He has swelling to the right tib-fib area and knee. There is mild bruising to the lower leg. Patient is alert and oriented respirations regular and unlabored speaking in full sentences he is not able to bear weight on his right leg. TRAVEL OUTSIDE OF THE [place] IN LAST 30 DAYS: No - HPI Patient complains to provider of: Injury, Pain, Swelling Location: Knee, Leg Where: Home, Indoors Onset/Duration: Sudden Quality of pain: Sharp, Throbbing Severity: Severe Pain Level: 5 Context: Fell Recent injury: Yes Associated symptoms: [place] a pop Exacerbated by: Movement, Walking Relieved by: Nothing - Related Data Allergies/Adverse Reactions: No Known Drug Allergies Allergy (Verified 01/03/18 17:34) bee sting Allergy (Uncoded 01/03/18 17:34) Past Medical History - General Information source: Patient - Social History Smoking Status: Never Smoker Cigarette use (# per day): No Chew tobacco use (# tins/day): No Smoking Education Provided: No Frequency of alcohol use: None Drug Abuse: None Lives with: Family Family History: Reviewed & Not Pertinent Patient has suicidal ideation: Yes Patient has homicidal ideation: Yes - Past Medical History Cardiac Medical History: Reports: None Pulmonary Medical History: Reports: Hx Bronchitis EENT Medical History: Reports: None Neurological Medical History: Reports: None Endocrine Medical History: Reports: None Renal/ Medical History: Reports: Hx Kidney Stones Malignancy Medical History: Reports None GI Medical History: Reports: None Musculoskeletal Medical History: Reports Hx Arthritis, Reports Hx Musculoskeletal Trauma Skin Medical History: Reports None Psychiatric Medical History: Reports: None Traumatic Medical History: Reports: Hx Fractures Infectious Medical History: Reports: None Past Surgical History: Reports: Hx Orthopedic Surgery - L hand with screws in place - Immunizations Immunizations up to date: Yes Hx Diphtheria, Pertussis, Tetanus Vaccination: Yes - unknown Review of Systems - Review of Systems Constitutional: No symptoms reported EENT: No symptoms reported Cardiovascular: No symptoms reported Respiratory: No symptoms reported Gastrointestinal: No symptoms reported Genitourinary: No symptoms reported Male Genitourinary: No symptoms reported Musculoskeletal: Joint pain, Joint swelling, Muscle stiffness, Leg swelling Skin: No symptoms reported Hematologic/Lymphatic: No symptoms reported Neurological/Psychological: No symptoms reported -: Yes All other systems reviewed and negative Physical Exam - Vital signs Vitals: Temp Pulse Resp BP Pulse Ox 99.6 F 93 20 128/76 H 97 01/03/18 17:49 01/03/18 17:49 01/03/18 17:49 01/03/18 17:49 01/03/18 17:49 Interpretation: Normal - General General appearance: Appears well, Alert - HEENT Head: Normocephalic, Atraumatic Eyes: Normal Pupils: PERRL - Respiratory Respiratory status: No respiratory distress Chest status: Nontender Breath sounds: Normal Chest palpation: Normal - Cardiovascular Rhythm: Regular Heart sounds: Normal auscultation Murmur: No - Abdominal Inspection: Normal Distension: No distension Bowel sounds: Normal Tenderness: Nontender Organomegaly: No organomegaly - Back Back: Normal, Nontender - Extremities General upper extremity: Normal inspection, Nontender, Normal color, Normal ROM , Normal temperature General lower extremity: Tender, Edema. No: Carlita's sign Knee: Tender, Ecchymosis, Pain with ROM, Patellar tendon intact, Tender joint line, Unable to bear weight. No: Drawer's test instability, Instability, Joint effusion, Laceration, Laxity with valgus stress, Laxity with varus stress Calf: Other - Pain and bruising swelling to the front of his lower leg Ankle: Normal, Nontender Foot: Normal, Nontender - Neurological Neuro grossly intact: Yes Cognition: Normal Orientation: AAOx4 [place] Coma Scale Eye Opening: Spontaneous [place] Coma Scale Verbal: Oriented [place] Coma Scale Motor: Obeys Commands [place] Coma Scale Total: 15 Speech: Normal Motor strength normal: LUE, RUE, LLE, RLE Sensory: Normal - Psychological Associated symptoms: Normal affect, Normal mood - Skin Skin Temperature: Warm Skin Moisture: Dry Skin Color: Normal Course - Re-evaluation Re-evalutation: 01/03/18 23:47 X-rays discussed with patient and written report of x-rays given to patient to follow-up with orthopedics when he returns home. A CD of his x-rays were also given to patient to follow-up. Patient was treated with Andres wrap and crutches for his pain to his right knee. Patient was treated with Tylenol and given instructions for Tylenol ibuprofen elevation and ice to his knee. Patient was discharged home. Patient verbalized understanding of instructions and agreement with treatment plan. - Vital Signs Vital signs: Temp Pulse Resp BP Pulse Ox 98 F 88 20 118/72 100 01/03/18 20:20 01/03/18 20:20 01/03/18 20:20 01/03/18 20:20 01/03/18 20:20 - Diagnostic Test Radiology reviewed: Image reviewed, Reports reviewed Procedures - Immobilization Right Knee Time completed: 19:35 Pre-Proc Neuro Vasc Exam: Normal Immobilizer type: Andres wrap, Crutches Performed by: PCT Post-Proc Neuro Vasc Exam: Normal Alignment checked and good: Yes Discharge - Discharge Clinical Impression: Right knee injury Qualifiers: Encounter type: initial encounter Qualified Code(s): S89.91XA - Unspecified injury of right lower leg, initial encounter Contusion of right leg Qualifiers: Encounter type: initial encounter Qualified Code(s): S80.11XA - Contusion of right lower leg, initial encounter Fall Qualifiers: Encounter type: initial encounter Qualified Code(s): W19.XXXA - Unspecified fall, initial encounter Condition: Stable Disposition: HOME, SELF-CARE Additional Instructions: CONTUSION: Your injury has resulted in a contusion -- a crushing of the deep tissues. No injury to important structures was detected during the physician's exam. Contusions vary in the amount of pain they cause, and in the length of time required for healing. Typically, the area will become bruised, and will remain painful to touch for two or three weeks. However, most patients are back to working and playing within a few days. After the initial period of rest and cold-packs, your symptoms (together with the doctor's recommendations) will determine how rapidly you can get back to full activity. Usually this means "do what feels okay, but don't do things that hurt." If re-examination was recommended, it's important to follow up as instructed. Call the doctor or return any time if pain increases, if swelling becomes severe, if you develop numbness or weakness in an injured extremity, or if any other alarming symptoms occur. SUSPECTED INTERNAL KNEE INJURY: The examiner of your injured knee suspects an internal injury to the cartilage or internal ligaments. This must be further investigated by an exterior interior specialist. The knee should be protected, ice packed, and elevated while awaiting your follow-up exam by the orthopedist. If there is severe swelling, severe pain, or any new symptoms while awaiting your exam, you should call the orthopedist. (If he/she is unavailable, call us or return for re-examination.) KNEE IMMOBILIZING SPLINT: The knee immobilizing splint will protect the injury while healing begins. This type of splint does not allow the knee to bend at all. No running or sports will be possible. If the splint allows painfree walking, it's giving adequate protection. If there is still significant pain, crutches may be needed as well. Don't do anything that hurts. Adjusted the splint, if necessary. The stiffeners on the sides are attached with Velcro, so they can be easily moved to adjust for thigh and calf size. If you need help with these adjustments, come back. You will lose muscle strength in the thigh while using this splint. The doctor will advise you if it's safe to do isometric knee exercises while you use it. USE OF CRUTCHES: The doctor has recommended that you not bear weight at this time. You will need to use crutches. Adjust the crutches so the tops come to about two inches under the armpit while you are standing upright. Use your hands -- not your armpits -- to support your weight. To get into a chair, support yourself with one crutch on the injured side. Hold the chair with the other hand, then lower yourself while putting all your weight on the good leg. Going up stairs is `good leg up, step up, then bring up crutches and bad leg.' Down stairs is `bad leg and crutches down, then bring good leg down.' If you develop numbness or swelling in an arm or hand, you are using the crutches incorrectly. Return if you are having any problems with the crutches. ICE & ELEVATION: Apply ice packs frequently against the painful area. Many different schedules are recommended, such as "20 minutes on, 20 minutes off" or "one hour ice, two hours rest." If you need to work, you may need to go longer between ice treatments. You should plan to have the area ice packed AT LEAST one- fourth of the time. The ice should be applied over the wrap, tape, or splint, or over a layer of cloth -- not directly against the skin. Some ice bags have a built-in cloth and can be put directly on the skin. Your injured part should be elevated as much as possible over the next 48 hours. Try to keep the injury above the level of the heart. Avoid use of the injured area. Elevation and rest will decrease the swelling. USE OF TYLENOL (ACETAMINOPHEN): Acetaminophen may be taken for pain relief or fever control. It's much safer than aspirin, offering a wider range of "safe" dosages. It is safe during . Some brand names are Tylenol, Panadol, Datril, Anacin 3, Tempra, and Liquiprin. Acetaminophen can be repeated every four hours. The following are maximum recommended dosages: WEIGHT Dose Drops Elixir Chewable( 80mg) (LBS.) drprs=droppers tsp=teaspoon 6 40 mg 0.4 ml (1/2) 6-11 80 mg 0.8 ml (full) tsp 1 tab 12-16 120 mg 1 1/2 drprs 3/4 tsp 1 1/2 tabs 17-23 160 mg 2 drprs 1 tsp 2 tabs 24-30 240 mg 3 drprs 1 1/2 tsp 3 tabs 30-35 320 mg 2 tsp 4 tabs 36-41 360 mg 2 1/4 tsp 4 1/2 tabs 42-47 400 mg 2 1/2 tsp 5 tabs 48-53 480 mg 3 tsp 6 tabs 54-59 520 mg 3 1/4 tsp 6 1/2 tabs 60-64 560 mg 3 1/2 tsp 7 tabs 65-70 600 mg 3 3/4 tsp 7 1/2 tabs 71-76 640 mg 4 tsp 8 tabs 77-82 720 mg 4 1/2 tsp 9 tabs 83-88 800 mg 5 tsp 10 tabs >89 pounds or adults 650 mg to 900 mg Acetaminophen can be repeated every four hours. Maximum dose not to exceed 4000 mg a day. These maximum recommended dosages are slightly higher than the dosages written on the product container, but these dosages are very safe and below the toxic dosage for acetaminophen. FOLLOW-UP CARE: If you have been referred to a physician for follow-up care, call the physician s office for an appointment as you were instructed or within the next two days. If you experience worsening or a significant change in your symptoms, notify the physician immediately or return to the Emergency Department at any time for re-evaluation. Prescriptions: Naproxen [Naprosyn] 500 mg PO BID PRN #14 tablet PRN Reason: For Pain Forms: Elevated Blood Pressure Referrals: ZULEIMA RIVERA MD [ACTIVE STAFF] - Follow up as needed
--- NOTE | 2018-01-03 18:29 | RADIOLOGY REPORT (SQ) ---
EXAM DESCRIPTION: TIBIA FIBULA RIGHT COMPLETED DATE/TIME: 01/03/2018 6:18 pm REASON FOR STUDY: Fell off of a ladder injured his right knee and le COMPARISON: None. NUMBER OF VIEWS: Four views. TECHNIQUE: Two radiographic images acquired of the right tibia and fibula to include the knee and an kle in at least one projection. LIMITATIONS: None. FINDINGS: MINERALIZATION: Normal. BONES: No acute fracture or dislocation. No worrisome bone lesions. SOFT TISSUES: No obvious swelling or foreign body. OTHER: No other significant finding. IMPRESSION: NEGATIVE STUDY OF THE RIGHT TIBIA AND FIBULA. NO RADIOGRAPHIC EVIDENCE OF ACUTE INJURY. TECHNICAL DOCUMENTATION: JOB ID: [id number] [employer]- All Rights Reserved Reading location - IP/workstation name: [email or web address]
--- NOTE | 2018-01-03 18:44 | RADIOLOGY REPORT (SQ) ---
EXAM DESCRIPTION: KNEE RIGHT 4 VIEWS COMPLETED DATE/TIME: 01/03/2018 6:18 pm REASON FOR STUDY: Fell off of a ladder injured his right knee and le COMPARISON: 10/15/2016 NUMBER OF VIEWS: Four views. TECHNIQUE: AP, lateral, and both oblique radiographic images acquired of the right knee. LIMITATIONS: None. FINDINGS: MINERALIZATION: Normal. BONES: No acute fracture or dislocation. No worrisome bone lesions. JOINT: No effusion. SOFT TISSUES: No soft tissue swelling. No radio-opaque foreign body. OTHER: No other significant finding. IMPRESSION: NEGATIVE STUDY OF THE RIGHT KNEE. NO RADIOGRAPHIC EVIDENCE OF ACUTE INJURY. TECHNICAL DOCUMENTATION: JOB ID: [id number] [employer]- All Rights Reserved Reading location - IP/workstation name: [email or web address]
[2018-01-03] MEDS ORDERED: KETOROLAC TROMETHAMINE 60 MG/2 ML SDV IM ONE (19:13)
[2018-01-03 20:38] VITALS: BP 118/72
== END 2018-01-03 20:20 | disposition home or self-care (01) ==
LOC: ER 17:32
DX: S89.91XA Unspecified injury of right lower leg, initial encounter (principal); S80.11XA Contusion of right lower leg, initial encounter; W17.89XA Other fall from one level to another, initial encounter; Y92.008 Other place in unspecified non-institutional (private) residence as the place of occurrence of the external cause; Z87.442 Personal history of urinary calculi
CPT/HCPCS: 99284; 96372; 73564; 73590; L1830; J1885

== ENCOUNTER 2018-01-08 21:38 | Emergency (ER) | payer OTHER ==
[2018-01-08 21:53] VITALS: BP 124/76
--- NOTE | 2018-01-08 23:01 | ER Document Report ---
HPI - HPI Patient complains to provider of: Persistent right knee pain Onset: Last week - 01-03 Pain Level: 5 Context: 27-year-old male complaining of persistent right knee pain. He was seen at [place] after a popping twisting motion to his knee which caused him to jump down off of a ladder on 01-03. He developed swelling and pain to the knee and also the lower right calf. After he was seen at [place] he wanted a second opinion so his drove him all the way to [facility] and they told him that he had a internal knee injury. They were also aware of the right lower calf pain just above the Achilles tendon. The patient does not want to use the knee immobilizer that he was given at [place] because he has to drive. He has an Andres bandage on it. He was given 6 hydrocodone at [facility]. He is here for pain medication. He has an orthopedic appointment next week. He does have crutches but he drove himself here because his is home with the children. Associated Symptoms: None Exacerbated by: Walking Relieved by: Denies Similar symptoms previously: Yes Recently seen / treated by doctor: Yes - ROS ROS below otherwise negative: Yes Systems Reviewed and Negative: Yes All other systems reviewed and negative - REPRODUCTIVE Reproductive: DENIES: : Past Medical History - General Information source: Patient - Social History Smoking Status: Unknown if Ever Smoked Lives with: Family Family History: Reviewed & Not Pertinent Pulmonary Medical History: Reports: Hx Bronchitis Renal/ Medical History: Reports: Hx Kidney Stones. Denies: Hx Peritoneal Dialysis Musculoskeletal Medical History: Reports Hx Arthritis, Reports Hx Musculoskeletal Trauma Traumatic Medical History: Reports: Hx Fractures Past Surgical History: Reports: Hx Orthopedic Surgery - L hand with screws in place - Immunizations Immunizations up to date: Yes Hx Diphtheria, Pertussis, Tetanus Vaccination: Yes - unknown Vertical Provider Document - CONSTITUTIONAL Agree With Documented VS: Yes Exam Limitations: No Limitations - INFECTION CONTROL TRAVEL OUTSIDE OF THE [place] IN LAST 30 DAYS: No - MUSCULOSKELETAL/EXTREMETIES Musculoskeletal/Extremeties: Tender - Mild effusion to his right knee there is no erythema or heat. No specific bony tenderness he is able to extend fully but he prefers it slightly flexed for comfort, there is some tenderness to the right lower calf muscle just above the Achilles tendon. There is no erythema or cord. - NEURO Level of Consciousness: Awake - DERM Integumentary: No Rash Course - Vital Signs Vital signs: Temp Pulse Resp BP Pulse Ox 98.6 F 73 18 124/76 98 01/08/18 21:39 01/08/18 21:39 01/08/18 21:39 01/08/18 21:39 01/08/18 21:39 Discharge - Discharge Clinical Impression: Right lower leg muscle strain Right knee sprain Qualifiers: Encounter type: subsequent encounter Involved ligament of knee: unspecified ligament Qualified Code(s): S83.91XD - Sprain of unspecified site of right knee , subsequent encounter Condition: Good Disposition: HOME, SELF-CARE Instructions: Andres Wrap ([facility]), Use of Crutches ([facility]), Ibuprofen (General) ([facility]) , Oral Narcotic Medication ([facility]), Sprained Knee ([facility]) Additional Instructions: See the orthopedic doctor on January 14 as planned Use the crutches I did give you 6 hydrocodone mixed with Tylenol as a dispensed from the emergency department, each hydrocodone has 325 mg with tylenol in it Motrin 800 mg with food for inflammation Tylenol up to 4000 mg a day for pain including the tylenol that is in the hydrocodone pill (325mg) Return to the emergency room any concerns Prescriptions: Ibuprofen [Motrin 800 mg Tablet] 800 mg PO Q8HP PRN #30 tablet PRN Reason: Forms: Return to Work
[2018-01-08] MEDS ORDERED: IBUPROFEN 800 MG TABLET PO ONE (23:55)
[2018-01-08] MEDS ORDERED: HYDROCODONE/ACETAMINOPHEN 5-325 MG (6 TAB/ER DISP) PO PRN (23:55)
== END 2018-01-09 00:22 | disposition home or self-care (01) ==
LOC: ER 21:38
DX: S83.91XA Sprain of unspecified site of right knee, initial encounter (principal); S86.911A Strain of unspecified muscle(s) and tendon(s) at lower leg level, right leg, initial encounter; X50.1XXA Overexertion from prolonged static or awkward postures, initial encounter
CPT/HCPCS: 99283

== ENCOUNTER → 2018-01-15 | Outpatient (CLI) | payer OTHER | LOC: SP 13:35 | PROVIDERS: ATTEND Orthopaedic Surgery | DX: M79.661 Pain in right lower leg (principal); R60.9 Edema, unspecified ==

== ENCOUNTER → 2018-01-19 | Outpatient (CLI) | payer OTHER ==
--- NOTE | 2018-01-15 20:26 | VASCULAR PRELIM REPORT ---
Provider Note Provider Note: Venous duplex study is negative for deep venous thrombosis in the left common femoral vein and the right lower extremity veins. The final report will be generated once the software is repaired.
--- NOTE | 2018-01-15 20:33 | XCELERA REPORT ---
[address] [place] [facility] [address] Lower Extremity Venous Evaluation Procedure: Color flow and duplex imaging of the veins of the right lower extremity as well as the left Common Femoral vein. Right Sided Venous Evaluation Normal vessel filling wall to wall, compression and augmentation as well as Colour flow down to the infrageniculate veins. Left Sided Venous Evaluation The left common femoral vein is fully compressible. Spontaneous and phasic flow is present in the left common femoral vein. Interpretation Summary No duplex evidence of DVT or obstruction in the right lower extremity nor in the left Common Femoral vein. Name: DAI BOONE Age: 27 yrs Gender: Male : 1990 Patient Status: Preadmit Patient Location: [facility] Study Date: 01/15/2018 01:07 PM Reason For Study: RLE PAIN Ordering Physician: LAURENT LONGORIA Performed By: Iva Vigil : LAURENT LONGORIA > Branden Lyman
--- NOTE | 2018-01-20 11:56 | RADIOLOGY REPORT (SQ) ---
EXAM DESCRIPTION: MRI RT LOWER JOINT WITHOUT COMPLETED DATE/TIME: 01/19/2018 7:50 pm REASON FOR STUDY: M25.561 PAIN IN RIGHT KNEE M25.561 PAIN IN RIGHT KNEE COMPARISON: Right knee four views 01/03/2018 TECHNIQUE: Rightknee images acquired and stored on PACS. Multiplanar images include fat sensitive s equences as T1, water sensitive sequences as FST2 or STIR, cartilage sensitive sequences as FSPD, and gradient echo sequences. LIMITATIONS: None. FINDINGS: JOINT AND BURSAE: Small suprapatellar knee joint effusion BONE CORTEX AND MARROW: There is bone marrow edema from contusion along the nonweightbearing surface lateral femoral condyles, best shown on axial image 12 and coronal image 17. ACL: Intact. No degeneration or ganglion cyst. PCL: Intact. MCL: Ligament is intact. There is edema superficial to the medial collateral ligament indicating str ain on coronal image 19 LCL: Intact. No periligamentous edema or fluid. MEDIAL MENISCUS: No tears. No abnormal signal. LATERAL MENISCUS: No tears. No abnormal signal. MEDIAL COMPARTMENT: Cartilage preserved. No bone bruises or reactive marrow edema. No osteophytes. LATERAL COMPARTMENT: Cartilage preserved. No bone bruises or reactive marrow edema. No osteophytes. PATELLA: No chondromalacia. No subchondral cysts. Medial and lateral retinacula intact. EXTENSOR MECHANISM: Intact. Quadriceps and patella tendons normal. SOFT TISSUES: Adjacent muscles and subcutaneous tissues normal. Normal flow void in popliteal artery and vein. OTHER: No other significant finding. IMPRESSION: Small joint effusion. Bone contusion nonweightbearing surface lateral femoral condyles. Medial collateral ligament strain without tear. TECHNICAL DOCUMENTATION: JOB ID: [id number] [employer]- All Rights Reserved Reading location - IP/workstation name: [email or web address]
== END ==
LOC: RAD 19:21
PROVIDERS: ATTEND Orthopaedic Surgery
DX: M25.561 Pain in right knee (principal); S83.411A Sprain of medial collateral ligament of right knee, initial encounter; X58.XXXA Exposure to other specified factors, initial encounter
CPT/HCPCS: 93971

== ENCOUNTER 2018-01-29 23:33 | Emergency (ER) | payer OTHER ==
[2018-01-30] MEDS ORDERED: HYDROCODONE/ACETAMINOPHEN 5-325 MG TABLET PO ONE (01:10)
--- NOTE | 2018-01-30 01:10 | ER Document Report ---
HPI - HPI Pain Level: 4 Notes: Patient is a 27-year-old male who presents with chief complaint of right knee pain. Patient reports that he had a previous injury from a few months ago, states that he twisted it wrong earlier today. Patient is able to ambulate but he states that the pain is severe. - REPRODUCTIVE Reproductive: DENIES: : Past Medical History - General Information source: Patient - Social History Smoking Status: Current Some Day Smoker Frequency of alcohol use: Occasional Drug Abuse: None Family History: Reviewed & Not Pertinent Pulmonary Medical History: Reports: Hx Bronchitis Renal/ Medical History: Reports: Hx Kidney Stones. Denies: Hx Peritoneal Dialysis Musculoskeletal Medical History: Reports Hx Arthritis, Reports Hx Musculoskeletal Trauma Traumatic Medical History: Reports: Hx Fractures Past Surgical History: Reports: Hx Orthopedic Surgery - L hand with screws in place - Immunizations Immunizations up to date: Yes Hx Diphtheria, Pertussis, Tetanus Vaccination: Yes - unknown Vertical Provider Document - CONSTITUTIONAL Notes: PHYSICAL EXAMINATION: GENERAL: Well-appearing, well-nourished and in no acute distress. HEAD: Atraumatic, normocephalic. EYES: Pupils equal round extraocular movements intact, conjunctiva are normal. ENT: Nares patent NECK: Normal range of motion LUNGS: No respiratory distress Musculoskeletal: Normal range of motion, mild swelling noted to the right knee, no limitation in range of motion, no erythema, normal pulses. NEUROLOGICAL: Normal speech, normal gait. PSYCH: Normal mood, normal affect. SKIN: Warm, Dry, normal turgor, no rashes or lesions noted. - INFECTION CONTROL TRAVEL OUTSIDE OF THE [place] IN LAST 30 DAYS: No Course - Re-evaluation Re-evalutation: X-rays negative for any acute findings. Patient was offered one Vicodin and a shot of Toradol. Patient refused Toradol shot stating that he does not like needles. Patient already has a knee immobilizer that was provided to him by his orthopedic doctor for his previous recent knee injury. Patient requesting take home pack of Vicodin, explained to patient that this was not indicated at this time. I did offer a prescription of Toradol which patient declined. Patient's (Mira Sánchez) then requested to speak to me on the phone from the lobby, patient gave approval for the to speak with me, the again requesting a take home pack of Vicodin or a written prescription for Vicodin. Again this was declined as there is no acute injury noted. At the time of discharge the patient was again demanding to the nurse that she give him a prescription for "nothing less than Vicodin". I did go to the room again and re-explained to the patient that narcotics were not indicated. The patient was discharged to the [facility], he ambulated with a steady gait, the then stormed back to the room again demanding pain medications. - Vital Signs Vital signs: Temp Pulse Resp BP Pulse Ox 98.4 F 68 18 123/74 98 01/29/18 23:50 01/29/18 23:50 01/29/18 23:50 01/29/18 23:50 01/29/18 23:50 Discharge - Discharge Clinical Impression: Knee pain Qualifiers: Chronicity: acute Laterality: right Qualified Code(s): M25.561 - Pain in right knee Condition: Stable Disposition: HOME, SELF-CARE Additional Instructions: NAE WRAP: A compression dressing (nae wrap) has been placed. This helps hold the area still. It limits swelling and internal bleeding. The wrap should be comfortably snug -- not tight. You should feel a sense of pressure, but not severe pain under the wrap. Unless the physician tells you otherwise, you can adjust the wrap for comfort. If the wrap causes symptoms suggesting it's too tight -- uncomfortable pressure, swelling or discoloration beyond the wrap, numbness, or severe pain - - you must loosen the wrap. If these symptoms don't resolve promptly, return for re-evaluation. SPRAINED KNEE: Your sprained knee results from a stretching or tearing of the ligaments which support the joint. This often results from a bending stress -- such as a twisting fall while skiing or a "clip" while playing football. The ligaments will require time and protection to heal adequately. A knee sprain can be quite serious, and should be taken seriously. The usual treatment is splinting of the knee, ice packs, and elevation. You shouldn't walk on the leg if weightbearing is painful. Unless the sprain is obviously a minor one, follow-up exam is very important. The degree of ligament damage often cannot be fully assessed at first due to muscle spasm and pain. Your treatment plan may change based on the physician's findings during your follow-up examination. Call the doctor at once if there is severe swelling, increasing pain, numbness, or other alarming symptoms. USE OF CRUTCHES: The doctor has recommended that you not bear weight at this time. You will need to use crutches. Adjust the crutches so the tops come to about two inches under the armpit while you are standing upright. Use your hands -- not your armpits -- to support your weight. To get into a chair, support yourself with one crutch on the injured side. Hold the chair with the other hand, then lower yourself while putting all your weight on the good leg. Going up stairs is `good leg up, step up, then bring up crutches and bad leg.' Down stairs is `bad leg and crutches down, then bring good leg down.' If you develop numbness or swelling in an arm or hand, you are using the crutches incorrectly. Return if you are having any problems with the crutches. ICE & ELEVATION: Apply ice packs frequently against the painful area. Many different schedules are recommended, such as "20 minutes on, 20 minutes off" or "one hour ice, two hours rest." If you need to work, you may need to go longer between ice treatments. You should plan to have the area ice packed AT LEAST one- fourth of the time. The ice should be applied over the wrap, tape, or splint, or over a layer of cloth -- not directly against the skin. Some ice bags have a built-in cloth and can be put directly on the skin. Your injured part should be elevated as much as possible over the next 48 hours. Try to keep the injury above the level of the heart. Avoid use of the injured area. Elevation and rest will decrease the swelling. USE OF URIY-SHP-TQGDTEY IBUPROFEN: Ibuprofen (Advil, Nuprin, Medipren, Motrin IB) is a medication for fever and pain control. In addition, it has anti- inflammatory effects which may be beneficial, especially in the treatment of injuries. It's best to take ibuprofen with food. Persons with ulcer disease or allergy to aspirin should notify their physician of this before taking ibuprofen. Ibuprofen can be given every four to six hours, for a total of four doses daily. Age Pain or fever dose Antiinflammatory dose 15-adult 400 mg (2 tab) 600 mg (3 tab) FOLLOW-UP CARE: If you have been referred to a physician for follow-up care, call the physician s office for an appointment as you were instructed or within the next two days. If you experience worsening or a significant change in your symptoms, notify the physician immediately or return to the Emergency Department at any time for re-evaluation. Referrals: LAURENT LONGORIA MD [Primary Care Provider] - Follow up as needed
--- NOTE | 2018-01-30 02:06 | RADIOLOGY REPORT (SQ) ---
EXAM DESCRIPTION: XR KNEE 4 OR MORE VIEWS COMPLETED DATE/TME: 01/29/2018 23:46 CLINICAL HISTORY: 27 years, Male, pain COMPARISON: None. FINDINGS: 4 views of the right knee. No acute fracture or dislocation. Normal osseous mineralization. Joint spaces preserved. No definite joint effusion. IMPRESSION: No acute fracture or dislocation. 2010 [employer]- All Rights Reserved
[2018-01-30] MEDS ORDERED: KETOROLAC TROMETHAMINE 60 MG/2 ML SDV IM ONE (02:25)
[2018-01-30 03:11] VITALS: BP 125/85
== END 2018-01-30 02:40 | disposition home or self-care (01) ==
LOC: ER 23:33
DX: M25.561 Pain in right knee (principal); X50.1XXA Overexertion from prolonged static or awkward postures, initial encounter; F17.200 Nicotine dependence, unspecified, uncomplicated
CPT/HCPCS: 99283

== ENCOUNTER 2018-08-10 07:49 | Emergency (ER) | payer OTHER ==
[2018-08-10] MEDS ORDERED: DICYCLOMINE HCL 20 MG TABLET PO ONE (08:31)
[2018-08-10] MEDS ORDERED: ONDANSETRON HCL INJ/PF 4 MG/2 ML SDV IV ONE (08:31)
[2018-08-10] MEDS ORDERED: NORMAL SALINE 1000 ML 1,000 ML IV ONE ×2 (08:31→09:47)
[2018-08-10 08:41] LABS: ABSOLUTE EOSINOPHILS # (AUTO) 0.1 10^3/uL (0.0-0.6); ABSOLUTE LYMPHOCYTES (AUTO) 1.6 10^3/uL (0.5-4.7); ABSOLUTE MONOCYTES (AUTO) 0.8 10^3/uL (0.1-1.4); BASOPHILS % (AUTO) 0.6 % (0-2); EOSINOPHILS % (AUTO) 1.9 % (0-6); HEMATOCRIT 47.2 % (37.9-51.0); LYMPHOCYTES % (AUTO) 24.9 % (13-45); MEAN CORPUSCULAR HEMOGLOBIN 28.4 pg (27.0-33.4); MEAN CORPUSCULAR HGB CONC 33.9 g/dL (32.0-36.0); MEAN CORPUSCULAR VOLUME 84 fl (80-97); MONOCYTES % (AUTO) 11.7 % (3-13); PLATELET COUNT 316 10^3/uL (150-450); RED BLOOD COUNT 5.63 10^6/uL (4.35-5.55); SEGMENTED NEUTROPHILS % (AUTO) 60.9 % (42-78); TOTAL CELLS COUNTED % (AUTO) 100 %; WHITE BLOOD COUNT 6.6 10^3/uL (4.0-10.5)
--- NOTE | 2018-08-10 09:00 | ER Document Report ---
ED GI/ - General Chief Complaint: Nausea/Vomiting/Diarrhea Stated Complaint: FEVER/VOMITING Time Seen by Provider: 08/10/18 08:15 Primary Care Provider: [facility] [Provider Group] - Follow up as needed Mode of Arrival: Ambulatory Information source: Patient Notes: Patient presents complaining of nausea vomiting diarrhea with fever that started yesterday. Patient complains of lower abdominal pain as well. Patient denies any urinary symptoms. TRAVEL OUTSIDE OF THE [place] IN LAST 30 DAYS: No - HPI Patient complains to provider of: Abdominal pain, Diarrhea, Vomiting Onset: Yesterday Timing/Duration: Gradual Quality of pain: Cramping Pain Level: 4 Location: Pelvis Sexual history: Active Associated symptoms: Diarrhea, Fever, Nausea, Vomiting. denies: Blood in emesis, Blood in stool, Constipation, Dysuria, Loss of appetite, Urinary hesitancy, Urinary frequency, Urinary retention, Urinary urgency Exacerbated by: Denies Relieved by: Denies Similar symptoms previously: No Recently seen / treated by doctor: No - Related Data Allergies/Adverse Reactions: No Known Drug Allergies Allergy (Verified 08/10/18 07:50) bee sting Allergy (Uncoded 08/10/18 07:50) Past Medical History - General Information source: Patient - Social History Smoking Status: Never Smoker Frequency of alcohol use: None Drug Abuse: None Occupation: [employer] Lives with: Family Family History: Reviewed & Not Pertinent Patient has suicidal ideation: No Patient has homicidal ideation: No Pulmonary Medical History: Reports: Hx Bronchitis Renal/ Medical History: Reports: Hx Kidney Stones. Denies: Hx Peritoneal Dialysis Musculoskeletal Medical History: Reports Hx Arthritis, Reports Hx Musculoskeletal Trauma Traumatic Medical History: Reports: Hx Fractures Past Surgical History: Reports: Hx Orthopedic Surgery - L hand with screws in place - Immunizations Immunizations up to date: Yes Hx Diphtheria, Pertussis, Tetanus Vaccination: Yes - unknown Review of Systems - Review of Systems Constitutional: Fever. denies: Recent illness EENT: No symptoms reported Cardiovascular: No symptoms reported. denies: Chest pain Respiratory: No symptoms reported. denies: Cough, Short of breath Gastrointestinal: Abdominal pain, Diarrhea, Nausea, Vomiting. denies: Constipation, Blood streaked bowels, Black stools, Rectal bleeding Genitourinary: No symptoms reported. denies: Dysuria, Flank pain Male Genitourinary: No symptoms reported Musculoskeletal: No symptoms reported. denies: Back pain Skin: No symptoms reported Hematologic/Lymphatic: No symptoms reported Neurological/Psychological: No symptoms reported Physical Exam - Vital signs Vitals: Temp Pulse Resp BP Pulse Ox 98.5 F 100 18 126/73 H 96 08/10/18 07:56 08/10/18 07:56 08/10/18 07:56 08/10/18 07:56 08/10/18 07:56 - General General appearance: Appears well, Alert In distress: None - HEENT Head: Normocephalic, Atraumatic Eyes: Normal Conjunctiva: Normal Nasal: Normal Mouth/Lips: Normal Mucous membranes: Normal Neck: Normal, Supple. No: Lymphadenopathy - Respiratory Respiratory status: No respiratory distress Chest status: Nontender Breath sounds: Normal. No: Rales, Rhonchi, Stridor, Wheezing Chest palpation: Normal - Cardiovascular Rhythm: Regular Heart sounds: S1 appreciated, S2 appreciated Murmur: No - Abdominal Inspection: Obese Distension: No distension Bowel sounds: Normal Tenderness: Tender - Lower abdominal tenderness. No: Guarding Organomegaly: No organomegaly - Back Back: Normal, Nontender. No: CVA tenderness - Extremities General upper extremity: Normal inspection, Nontender, Normal ROM General lower extremity: Normal inspection, Nontender, Normal ROM - Neurological Neuro grossly intact: Yes Cognition: Normal Tiki Coma Scale Eye Opening: Spontaneous [place] Coma Scale Verbal: Oriented [place] Coma Scale Motor: Obeys Commands [place] Coma Scale Total: 15 - Psychological Associated symptoms: Normal affect, Normal mood - Skin Skin Temperature: Warm Skin Moisture: Dry Skin Color: Normal Course - Re-evaluation Re-evalutation: 08/10/18 09:48 On repeat abdominal exam, patient reports continued lower abdominal pain although nausea is improved at this time. Patient with continued right lower quadrant pain. Additional imaging test ordered at this time. 08/10/18 11:46 Patient's abdomen is soft, no guarding. Patient does complain of continued pelvic cramping. No additional vomiting or diarrhea during ER stay at this time. CT scan reviewed, no concern for appendicitis. Patient with incidental right intrarenal stones noted. Patient made aware of these findings. Patient presents with abdominal pain without signs of peritonitis or other life- threatening or serious etiology. Patient appears stable for discharge and has been instructed to return immediately if the symptoms worsen in any way for reevaluation. The patient has been instructed to return if the symptoms worsen or change in any way. - Vital Signs Vital signs: Temp Pulse Resp BP Pulse Ox 97.9 F 76 18 122/74 98 08/10/18 12:09 08/10/18 12:09 08/10/18 12:09 08/10/18 12:09 08/10/18 12:09 - Laboratory Result Diagrams: 08/10/18 08:20 08/10/18 08:20 Laboratory results interpreted by me: 08/10/18 08/10/18 08:20 08:45 RBC 5.63 H Urine Urobilinogen 2.0 H 08/10/18 11:43 Labs- Entire Visit 08/10/18 08/10/18 08/10/18 08:20 08:20 08:40 WBC 6.6 RBC 5.63 H Hgb 16.0 Hct 47.2 MCV 84 MCH 28.4 MCHC 33.9 RDW 14.0 Plt Count 316 Seg Neutrophils % 60.9 Lymphocytes % 24.9 Monocytes % 11.7 Eosinophils % 1.9 Basophils % 0.6 Absolute Neutrophils 4.0 Absolute Lymphocytes 1.6 Absolute Monocytes 0.8 Absolute Eosinophils 0.1 Absolute Basophils 0.0 Sodium 138.6 Potassium 4.0 Chloride 107 Carbon Dioxide 24 Anion Gap 8 BUN 10 Creatinine 1.11 Est GFR ( Amer) > 60 Est GFR (Non-Af Amer) > 60 Glucose 103 Calcium 10.2 Total Bilirubin 0.8 Direct Bilirubin 0.3 Neonat Total Bilirubin Not Reportable Neonat Direct Bilirubin Not Reportable Neonat Indirect Bili Not Reportable AST 28 ALT 34 Alkaline Phosphatase 64 Total Protein 6.7 Albumin 3.9 Lipase 76.8 Urine Color Urine Appearance Urine pH Ur Specific [place] Urine Protein Urine Glucose (UA) Urine Ketones Urine Blood Urine Nitrite Urine Bilirubin Urine Urobilinogen Ur Leukocyte Esterase Urine WBC (Auto) Urine RBC (Auto) U Hyaline Cast (Auto) Urine Mucus (Auto) Urine Ascorbic Acid Influenza A (Rapid) NEGATIVE Influenza B (Rapid) NEGATIVE 08/10/18 08:45 WBC RBC Hgb Hct MCV MCH MCHC RDW Plt Count Seg Neutrophils % Lymphocytes % Monocytes % Eosinophils % Basophils % Absolute Neutrophils Absolute Lymphocytes Absolute Monocytes Absolute Eosinophils Absolute Basophils Sodium Potassium Chloride Carbon Dioxide Anion Gap BUN Creatinine Est GFR ( Amer) Est GFR (Non-Af Amer) Glucose Calcium Total Bilirubin Direct Bilirubin Neonat Total Bilirubin Neonat Direct Bilirubin Neonat Indirect Bili AST ALT Alkaline Phosphatase Total Protein Albumin Lipase Urine Color YELLOW Urine Appearance SLIGHTLY-CLOUDY Urine pH 5.0 Ur Specific [place] 1.024 Urine Protein NEGATIVE Urine Glucose (UA) NEGATIVE Urine Ketones NEGATIVE Urine Blood NEGATIVE Urine Nitrite NEGATIVE Urine Bilirubin NEGATIVE Urine Urobilinogen 2.0 H Ur Leukocyte Esterase NEGATIVE Urine WBC (Auto) 2 Urine RBC (Auto) 1 U Hyaline Cast (Auto) 2 Urine Mucus (Auto) MOD Urine Ascorbic Acid NEGATIVE Influenza A (Rapid) Influenza B (Rapid) - Diagnostic Test Radiology reviewed: Reports reviewed Discharge - Discharge Clinical Impression: Nausea vomiting and diarrhea Abdominal pain Qualifiers: Abdominal location: lower abdomen, unspecified Qualified Code(s): R10.30 - Lower abdominal pain, unspecified Condition: Stable Disposition: HOME, SELF-CARE Instructions: Observation for Appendicitis (OM) Additional Instructions: Return immediately for any new or worsening symptoms Followup with your primary care provider, call tomorrow to make a followup appointment VOMITING: Vomiting (or nausea without vomiting) can be caused by many other different problems. It can mean that something's wrong with the stomach, such as ulcers or inflammation or the intestinal tract, such as appendicitis. But it can also be a symptom of a problem that has nothing to do with the stomach or intestines. Vomiting is common with severe headaches, earaches, tonsillitis, and kidney infections, etc. We see it with pneumonia or heart attacks. Drugs can cause nausea and vomiting. Many abdominal problems cause vomiting; for example, gallstones, kidney stones, pancreatitis, and intestinal obstruction (blocked bowels). In most cases, curing the vomiting depends on fixing the problem that caused it. For temporary relief, we may use an anti-nausea medicine. For home use, we can prescribe suppositories, chewable pills, pills that dissolve in the mouth, or liquid anti-nausea drugs. If the vomiting seems to be caused by a problem in the stomach, acid-suppressing drugs may be prescribed as well. It's important to avoid dehydration. Sip small amounts of clear liquids (soft drinks, tea, broth, etc) . Try to take fluids frequently even if you are vomiting to prevent dehydration. Take increasing amounts of fluid and when liquids are being consumed successfully, advance to small amounts of bland food (toast, soups, mashed potatoes, etc.) until you are able to resume a regular diet. Avoid aspirin, tobacco, and alcohol. If the vomiting worsens, if the problem that's making you vomit worsens, or if there's evidence of bleeding in the stomach (such as black, tarry stool, or bloody or black vomit), you should return immediately. Also, return if abdominal pain worsens or becomes localized to one area or you develop high fever. Call your doctor if you aren't improved in 24 hours. DIARRHEA, NON-SPECIFIC: Diarrhea means frequent, watery stools. There are many causes. Any problem that keeps the intestinal tract from absorbing water from the stool can lead to diarrhea. A sudden new diarrhea problem is usually caused by a virus, food sensitivity, toxic bacteria, or drugs. In this case, we expect the problem to go away soon. Testing is done only if you seem seriously ill from the diarrhea. If you have chronic diarrhea, or diarrhea that keeps coming back, we need to find out why. Chronic diarrhea can be due to inflammation of the bowels such as Crohn's disease or ulcerative colitis, food sensitivity such as intolerance to lactose or wheat protein, irritable bowel syndrome, and other problems. If your diarrhea is a significant problem but it's not clear why you have it, we'll refer you to a specialist for further testing. During an episode of diarrhea, drink small amounts (two to six ounces) of clear liquids (soft drinks, sport drinks, herb teas, broth, etc). Take fluids frequently to prevent dehydration. It's usually not a problem to take mild anti- diarrhea medication such as Kaopectate or Pepto-Bismol. As the diarrhea eases, advance to small amounts of bland food (mashed potato, toast) for 24 hours. Call the physician if blood appears in your vomit or stool, if vomiting lasts longer than 24 hours, if the abdominal pain worsens or becomes localized to one area, if you develop high fever, or if you become lightheaded and weak. VIRAL SYNDROME: The physician has diagnosed a viral infection. Viruses not only cause "colds," but can cause many different symptoms including generalized aching, fever, headache, cough, diarrhea, nausea, vomiting, and fatigue. The treatment, for the most part, is simply relief of symptoms. This means that antibiotics are usually not given. Rest, fluids, pain medications and, occasionally, medication for the specific symptoms that are most bothersome will be prescribed. Use good handwashing to avoid passing the virus to others. Shared toys should be cleaned with disinfectant. Clean the toilets, sinks, and counter surfaces in bathrooms. Launder clothing in hot water. Contact the physician if you develop any new or unusual symptoms such as severe headache, stiff neck, high fever, chest pain, productive cough, or shortness of breath. You should be rechecked if you don't see marked improvement within seven to 10 days. INTRAVENOUS (I V) FLUIDS: As part of your care today, you received intravenous (IV) fluids. IV fluids are administered to patients who are dehydrated or to those who have certain chemical (electrolyte) abnormalities that need correcting. ANTINAUSEA MEDICATION: You have been given a medication to suppress nausea and vomiting. This type of medication can be given as a shot, pill, or suppository. It will usually last for many hours. Pills and shots usually last six to eight hours. For the typical illness, only one or two doses of the medication may be necessary. Mild lightheadedness may occur. This type of medicine can cause drowsiness. Do not drive or operate dangerous machinery while under its influence. Do not mix with alcohol. See your doctor at once if you have muscle spasms or tightness, or uncontrollable motions (particularly of the neck, mouth, or jaw). Persistent vomiting or severe lightheadedness should also be evaluated by the physician. FOLLOW-UP CARE: If you have been referred to a physician for follow-up care, call the [facility] office for an appointment as you were instructed or within the next two days. If you experience worsening or a significant change in your symptoms, notify the physician immediately or return to the Emergency Department at any time for re-evaluation. Prescriptions: Dicyclomine HCl [Bentyl 20 mg Tablet] 20 mg PO QID PRN #12 tablet PRN Reason: Ondansetron HCl [Zofran 4 mg Tablet] 1 - 2 tab PO Q6 PRN #15 tablet PRN Reason: Forms: Return to Work Referrals: [facility] [Provider Group] - Follow up as needed
[2018-08-10 09:05] LABS: APPEARANCE,URINE SLIGHTLY-CLOUDY; BILIRUBIN,URINE NEGATIVE (NEGATIVE); COLOR,URINE YELLOW; GLUCOSE, URINE NEGATIVE (NEGATIVE); KETONES,URINE NEGATIVE (NEGATIVE); LEUKOCYTE ESTERASE,URINE NEGATIVE (NEGATIVE); NITRITE,URINE NEGATIVE (NEGATIVE); PROTEIN,URINE NEGATIVE (NEGATIVE); URINE SPECIFIC GRAVITY 1.024
[2018-08-10 09:06] LABS: ALANINE AMINOTRANSFERASE 34 U/L (21-72); ALBUMIN 3.9 g/dL (3.5-5.0); ALKALINE PHOSPHATASE 64 U/L (38-126); ANION GAP 8 (5-19); ASPARTATE AMINO TRANSFERASE 28 U/L (17-59); BILIRUBIN,DIRECT 0.3 mg/dL (0.0-0.4); BILIRUBIN,TOTAL 0.8 mg/dL (0.2-1.3); BLOOD UREA NITROGEN 10 mg/dL (7-20); CALCIUM 10.2 mg/dL (8.4-10.2); CARBON DIOXIDE 24 mmol/L (22-30); CHLORIDE 107 mmol/L (98-107); GLUCOSE 103 mg/dL (75-110); LIPASE 76.8 U/L (23-300); SODIUM 138.6 mmol/L (137-145); TOTAL PROTEIN 6.7 g/dL (6.3-8.2)
[2018-08-10 09:10] LABS: A TYPE INFLUENZA AG NEGATIVE (NEGATIVE); B INFLUENZA AG NEGATIVE (NEGATIVE)
--- NOTE | 2018-08-10 11:42 | RADIOLOGY REPORT (SQ) ---
EXAM DESCRIPTION: CT ABD/PELVIS WITH IV ONLY COMPLETED DATE/TIME: 08/10/2018 10:40 am REASON FOR STUDY: RLQ pain COMPARISON: None. TECHNIQUE: CT scan of the abdomen and pelvis performed using helical scanning technique with dynamic intravenous contrast injection. No oral contrast. Images reviewed with lung, soft tissue, and bone windows. Reconstructed coronal and sagittal MPR images reviewed. Delayed images for evaluation of the urinary system also acquired. All images stored on PACS. All CT scanners at this facility use dose modulation, iterative reconstruction, and/or weight based d osing when appropriate to reduce radiation dose to as low as reasonably achievable (ALARA). [facility]: Dose Right [facility]: CareDose [facility]: Dose Right [facility]: Teradose 4D [facility]: [employer] CONTRAST TYPE AND DOSE: contrast/concentration: Isovue 350.00 mg/ml; Total Contrast Delivered: 100.0 ml; Total Saline Delivered: 72.0 ml RENAL FUNCTION: Creatinine 1.1 RADIATION DOSE: CT Rad equipment meets quality standard of care and radiation dose reduction techniq ues were employed. CTDIvol: 20.6 - 21.1 mGy. DLP: 2561 mGy-cm.. LIMITATIONS: None. FINDINGS: LOWER CHEST: Minimal right basilar bandlike atelectasis. LIVER: Normal size. No masses. No dilated ducts. SPLEEN: Normal size. No focal lesions. PANCREAS: No masses. No significant calcifications. No adjacent inflammation or peripancreatic fluid collections. Pancreatic duct not dilated. GALLBLADDER: No identified stones by CT criteria. No inflammatory changes to suggest cholecystitis. ADRENAL GLANDS: No significant masses or asymmetry. RIGHT KIDNEY AND URETER: No solid masses. Multiple 3 mm right mid and lower pole intrarenal nonobst ructive stones. No ureteral calculi. No hydronephrosis or hydroureter. LEFT KIDNEY AND URETER: No solid masses. No significant calcifications. No hydronephrosis or hydr oureter. AORTA AND VESSELS: No aneurysm. No dissection. Renal arteries, SMA, celiac without stenosis. RETROPERITONEUM: No retroperitoneal adenopathy, hemorrhage or masses. BOWEL AND PERITONEAL CAVITY: No masses or inflammatory changes. No free fluid or peritoneal masses. APPENDIX: Normal. PELVIS: No mass. No free fluid. Normal bladder. ABDOMINAL WALL: No masses. No hernias. BONES: No significant or acute findings. OTHER: No other significant finding. IMPRESSION: NO SIGNIFICANT OR ACUTE FINDING IN THE ABDOMEN OR PELVIS ON CT SCAN WITH IV CONTRAST. TECHNICAL DOCUMENTATION: JOB ID: [id number] Quality ID # [id number]: Final reports with documentation of one or more dose reduction techniques (e.g., Au tomated exposure control, adjustment of the mA and/or kV according to patient size, use of iterative reconstruction technique) 2010 [employer]- All Rights Reserved Reading location - IP/workstation name: [facility]
[2018-08-10] MEDS ORDERED: LOPERAMIDE HCL 2 MG CAPSULE PO ONE (11:46)
[2018-08-10 12:10] VITALS: BP 122/74
== END 2018-08-10 12:10 | disposition home or self-care (01) ==
LOC: ER 07:49
DX: R11.2 Nausea with vomiting, unspecified (principal); R19.7 Diarrhea, unspecified; R50.9 Fever, unspecified; R10.30 Lower abdominal pain, unspecified; E66.9 Obesity, unspecified; Z87.442 Personal history of urinary calculi
CPT/HCPCS: 99284; 96361; 96374; 36415; 83690; 85025; 80053; 81001; 87804; 74177; J3490; J2405; J7030

== ENCOUNTER 2018-12-06 20:48 | Emergency (ER) | payer OTHER ==
[2018-12-06] MEDS ORDERED: KETOROLAC TROMETHAMINE 60 MG/2 ML SDV IM ONE (23:06)
[2018-12-06] MEDS ORDERED: DEXAMETHASONE SOD PHOS INJ 10 MG/1 ML VIAL IM ONE (23:06)
--- NOTE | 2018-12-06 23:12 | ER Document Report ---
ED Fall - General Chief Complaint: Knee Pain Stated Complaint: LOWER BACK AND RIGHT KNEE PAIN Time Seen by Provider: 12/06/18 22:57 Mode of Arrival: Wheelchair Information source: Patient Notes: 28-year-old male presents to ED for complaint of pain to the right knee and low back. He states he was doing yard work earlier when he tripped fell in a hole landed on his right knee and felt pops in his knee. States he also has low back pain. States he has a history of previous surgeries for torn ligaments and tendons and degenerative disc disease. Patient is alert oriented respirations regular and unlabored speaking in full sentences. He states it is very painful to walk. TRAVEL OUTSIDE OF THE [place] 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 Lives with: Family Family History: Reviewed & Not Pertinent Patient has suicidal ideation: No Patient has homicidal ideation: No - Past Medical History Cardiac Medical History: Reports: None Pulmonary Medical History: Reports: Hx Bronchitis EENT Medical History: Reports: None Neurological Medical History: Reports: None Endocrine Medical History: Reports: None Renal/ Medical History: Reports: Hx Kidney Stones Malignancy Medical History: Reports None GI Medical History: Reports: None Musculoskeletal Medical History: Reports Hx Arthritis, Reports Hx Musculoskeletal Deformity - Degenerative disc disease, Reports Hx Musculoskeletal Trauma Skin Medical History: Reports None Psychiatric Medical History: Reports: None Traumatic Medical History: Reports: Hx Fractures - Left hand Infectious Medical History: Reports: None Past Surgical History: Reports: Hx Orthopedic Surgery - L hand with screws in place; right knee tendon ligaments - Immunizations Immunizations up to date: Yes Hx Diphtheria, Pertussis, Tetanus Vaccination: Yes - unknown Review of Systems - Review of Systems Constitutional: No symptoms reported EENT: No symptoms reported Cardiovascular: No symptoms reported Respiratory: No symptoms reported Gastrointestinal: No symptoms reported Genitourinary: No symptoms reported Male Genitourinary: No symptoms reported Musculoskeletal: No symptoms reported, Back pain, Joint pain, Joint swelling Skin: No symptoms reported Hematologic/Lymphatic: No symptoms reported Neurological/Psychological: No symptoms reported Physical Exam - Vital signs Vitals: Temp Pulse Resp BP Pulse Ox 98.7 F 87 18 138/86 H 95 12/06/18 20:52 12/06/18 20:52 12/06/18 20:52 12/06/18 20:52 12/06/18 20:52 Interpretation: Normal - General General appearance: Appears well, Alert - HEENT Head: Normocephalic, Atraumatic Eyes: Normal Pupils: PERRL - Respiratory Respiratory status: No respiratory distress Chest status: Nontender Breath sounds: Normal Chest palpation: Normal - Cardiovascular Rhythm: Regular Heart sounds: Normal auscultation Murmur: No - Abdominal Inspection: Normal Distension: No distension Bowel sounds: Normal Tenderness: Nontender Organomegaly: No organomegaly - Back Back: Normal, Tender. No: Vertebra tenderness Notes: No signs or symptoms of cauda equina, no loss of control of bowel bladder, no saddle anesthesia, no loss of control or sensation to the lower extremities. - Extremities General upper extremity: Normal inspection, Nontender, Normal color, Normal ROM, Normal temperature General lower extremity: Normal color, Normal ROM, Normal temperature. No: Carlita's sign Knee: Tender, Pain with ROM, Patellar tendon intact, Tender joint line, Unable to bear weight. No: Abrasion, Deformity, Dislocation, Drawer's test instability, Ecchymosis, Instability, Joint effusion, Laceration, Laxity with valgus stress, Laxity with varus stress, Popliteal fossa tender - Neurological Neuro grossly intact: Yes Cognition: Normal Orientation: AAOx4 [place] Coma Scale Eye Opening: Spontaneous [place] Coma Scale Verbal: Oriented [place] Coma Scale Motor: Obeys Commands Tiki Coma Scale Total: 15 Speech: Normal Motor strength normal: LUE, RUE, LLE, RLE Sensory: Normal - Psychological Associated symptoms: Normal affect, Normal mood - Skin Skin Temperature: Warm Skin Moisture: Dry Skin Color: Normal Course - Re-evaluation Re-evalutation: 12/07/18 02:13 X-ray of right knee and low back discussed with patient and written report and CD of x-rays given to patient to follow-up with us personal injury law specialist and his primary care doctor. Patient was treated with Toradol and Decadron in the emergency room as well as Robaxin. He was given a prescription for Robaxin. Patient was able to ambulate out on his crutches. He was given instructions on elevation ice and knee exercises as well as stretching exercises for his back. He states he has had previous surgeries on this knee. There was a shadow on the medial aspect of the knee which is in the area of 1 of his surgeries. It said it could be a an avulsion fracture or a calcification. I discussed both of these with the patient and his . Patient stated he will call his primary care and/or his personal injury law specialist in the morning to schedule follow-up with both. Patient and were able to verbalize understanding - Vital Signs Vital signs: Temp Pulse Resp BP Pulse Ox 98.5 F 57 L 22 H 117/74 96 12/07/18 01:12 12/07/18 01:12 12/07/18 01:12 12/07/18 01:12 12/07/18 01:12 - Diagnostic Test Radiology reviewed: Image reviewed, Reports reviewed Procedures - Immobilization Right Knee Time completed: 01:15 Pre-Proc Neuro Vasc Exam: Normal Immobilizer type: Crutches, Knee immobilizer Performed by: PCT Post-Proc Neuro Vasc Exam: Normal Alignment checked and good: Yes Discharge - Discharge Clinical Impression: Fall Qualifiers: Encounter type: initial encounter Qualified Code(s): W19.XXXA - Unspecified fall, initial encounter Right knee injury Qualifiers: Encounter type: initial encounter Qualified Code(s): S89.91XA - Unspecified injury of right lower leg, initial encounter Low back pain Qualifiers: Chronicity: unspecified Back pain laterality: bilateral Sciatica presence: without sciatica Qualified Code(s): M54.5 - Low back pain Condition: Stable Disposition: HOME, SELF-CARE Additional Instructions: SUSPECTED INTERNAL KNEE INJURY: The examiner of your injured knee suspects an internal injury to the cartilage or internal ligaments. This must be further investigated by an personal injury law specialist. The knee should be protected, ice packed, and elevated while awaiting your follow-up exam by the orthopedist. If there is severe swelling, severe pain, or any new symptoms while awaiting your exam, you should call the orthopedist. (If he/she is unavailable, call us or return for re-examination.) Avulsion Fracture You have a possible avulsion fracture, sometimes also called a flake or chip fracture. This x-ray result could be from your previous surgery or from an avulsion fracture so we are treating you with a knee immobilizer and having you follow-up with your primary care doctor and your personal injury law specialist. This type of fracture is caused by a sudden stress on a ligament or tendon. As the ligament pulls on the bone, the bone gives way, and a chip of bone cracks off. Small avulsion fractures are not usually serious. More often, the ligament injury which caused the bone chip is of greater concern. The treatment is usually the same as for a ligament or tendon injury -- that is, rest, ice, and elevation -- with careful resumption of use once the pain and swelling have resolved. For some avulsion fractures, a cast or special splint is necessary. Large avulsion fractures may even require an operation. Often the treatment plan will change depending on how well your injury progresses. Healing usually takes between three and six weeks. Future X-rays will most likely still show this bone chip, as it does not "fuse." Call the doctor or return at once if swelling and pain become severe, or if numbness develops. LOW BACK PAIN: Three out of every four people will have an episode of disabling back pain during their lifetime. Most commonly the pain is due to straining of the muscles and ligaments in the low back. Usual treatment includes: (1) Rest on a firm surface. Avoid lying on your stomach. (2) Ice pack the painful area. After a few days, gentle heat may be used intermittently to relax the area, or ice packs can be continued. (3) Medication may be needed -- muscle relaxers and antiinflammatory medicines are commonly used. (4) As the back improves, exercises are prescribed to strengthen the back and abdominal muscles. Your doctor will advise you on the proper care for your back at each stage in your recovery. You may be better in a few days -- or healing may take several weeks. If new symptoms of a "herniated disc" (radiation of pain, numbness, or tingling down the back of the leg or weakness in the leg) occur, you should be re-examined. Further testing may be necessary. MUSCLE RELAXERS: Muscle relaxing medications are usually prescribed for acute muscle spasm or injury to the neck and back. They are often combined with antiinflammatory pain medication for increased relief. You may stop the muscle relaxer when the pain and stiffness have improved. Start the medication again if spasms recur. Muscle relaxers may cause drowsiness, especially with the first dose. Do not operate machinery or drive while under the effects of the medication. Most muscle relaxers last up to 24 hours. Do not combine the medication with alcohol. ICE PACKS: Apply ice packs frequently against the painful area. Many different schedules are recommended, such as "20 minutes on, 20 minutes off" or "one hour ice, two hours rest." If you need to work, you may need to go longer between ice treatments. You should plan to have the area ice packed AT LEAST one fourth of the time. The ice should be applied over the wrap, tape, or splint, or over a layer of cloth -- not directly against the skin. Some ice bags have a built-in cloth and can be put directly on the skin. WARM PACKS: After approximately two days, apply gentle heat (such as a heating pad or hot water bottle) for about 20 to 30 minutes about every two hours -- at least four times daily. Warmth and elevation will help you make a more rapid recovery, and will ease the pain considerably. Do not use HOT heat, and never apply heat for longer than 30 minutes. The continuous heat can invisibly damage skin and muscles -- even when no burn is seen on the surface. Damaged muscles can make you MORE sore. KNEE IMMOBILIZING SPLINT: The knee immobilizing splint will protect the injury while healing begins. This type of splint does not allow the knee to bend at all. No running or sports will be possible. If the splint allows painfree walking, it's giving adequate protection. If there is still significant pain, crutches may be needed as well. Don't do anything that hurts. Adjusted the splint, if necessary. The stiffeners on the sides are attached with Velcro, so they can be easily moved to adjust for thigh and calf size. If you need help with these adjustments, come back. You will lose muscle strength in the thigh while using this splint. The doctor will advise you if it's safe to do isometric knee exercises while you use it. USE OF CRUTCHES: The doctor has recommended that you not bear weight at this time. You will need to use crutches. Adjust the crutches so the tops come to about two inches under the armpit while you are standing upright. Use your hands -- not your armpits -- to support your weight. To get into a chair, support yourself with one crutch on the injured side. Hold the chair with the other hand, then lower yourself while putting all your weight on the good leg. Going up stairs is `good leg up, step up, then bring up crutches and bad leg.' Down stairs is `bad leg and crutches down, then bring good leg down.' If you develop numbness or swelling in an arm or hand, you are using the crutches incorrectly. Return if you are having any problems with the crutches. ICE & ELEVATION: Apply ice packs frequently against the painful area. Many different schedules are recommended, such as "20 minutes on, 20 minutes off" or "one hour ice, two hours rest." If you need to work, you may need to go longer between ice treatments. You should plan to have the area ice packed AT LEAST one-fourth of the time. The ice should be applied over the wrap, tape, or splint, or over a layer o f cloth -- not directly against the skin. Some ice bags have a built-in cloth and can be put directly on the skin. Your injured part should be elevated as much as possible over the next 48 hours. Try to keep the injury above the level of the heart. Avoid use of the injured area. Elevation and rest will decrease the swelling. USE OF WIWM-VVR-HUGHBKL IBUPROFEN: Ibuprofen (Advil, Nuprin, Medipren, Motrin IB) is a medication for fever and pain control. In addition, it has anti- inflammatory effects which may be beneficial, especially in the treatment of injuries. It's best to take ibuprofen with food. Persons with ulcer disease or allergy to aspirin should notify their physician of this before taking ibuprofen. Ibuprofen can be given every four to six hours, for a total of four doses daily. Age Pain or fever dose Antiinflammatory dose 6-8 yr 200 mg (1 tab) 200 mg (1 tab) 9-11 yr 200 mg (1 tab) 200-400 mg (1-2 tab) 11-14 yr 200-400 mg (1-2 tab) 400 mg (2 tab) 15-adult 400 mg (2 tab) 600 mg (3 tab) Toradol Injection You have been given an injection of ketorolac tromethamine (Toradol). This is an excellent, safe drug for pain control. It also has potent antiinflammatory action. You should have significant pain relief within about one hour. Toradol is not addicting and is non-sedating. It does not interfere with driving or work. Call or return if you develop itching, hives, shortness of breath, or rash. STEROID MEDICATION: You have been given an injection of medicine of the cortisone/steroid class. This medication is used to control inflammation or allergy. It is often continued as a pill for a short period of time, until the acute process subsides. There are usually no side effects from short-term use of cortisone-like medications. Some persons feel an increased sense of well-being and are not sleepy at bedtime. Long-term use of cortisone medications is best avoided, unless required for a severe condition. If your condition does not remit, or relapses after the course of corticosteroid medication, you should consult your physician. Stretching Exercises for the Back The physician has recommended that you begin stretching exercises for your back. These are often used even while the back is painful. However, you should notify the physician if the activities seem to increase your pain. PELVIC TILT: Lie flat on your back with knees bent. Tighten your stomach and buttock muscles so it flattens your lower back against the floor. Hold 10 seconds. Repeat 10 times, twice daily. KNEE RAISE: Lying on the back with knees bent, raise one knee to your chest, then the other. Hold both knees against the chest 10 seconds, then lower one knee at a time. Repeat 10 times, twice daily. PARTIAL TRUNK RAISE: Lie face down, arms at your sides. Keeping your waist on the floor, use your arms raise your chest up. Support yourself on your elbows for 30 seconds. Repeat twice daily, increasing the time to two minutes as you recover. Knee Exercise Program It's important to strengthen the muscles around the knee. This protects the injured area and stabilizes a knee that's been loosened by ligament injury. EARLY - Even when motion of the knee is painful (even when wearing a splint), you can begin isometric "quads" exercises. While sitting, hold the knee out, and contract the muscles to stiffen it. It shouldn't be straightened all the way -- stiffen it in a slightly-bent position. Lift the leg and draw a "T" with your foot, up to 100 times. When it becomes easy, add a weight on your foot. LATE - When the doctor advises you, you can begin moving the knee against resistance. The front muscles (quadriceps) are most important. While sitting at a [employer], straighten the knee forcefully while pushing a weight up with your ankle. Start with five to 10 pounds. Do 10 to 20 repetitions, increasing the weight as tolerated. Don't use more weight than is comfortable! Over a few weeks, work up to 35 to 50 pounds. Athletes should try to reach 70 to 90 pounds. FOLLOW-UP CARE: If you have been referred to a physician for follow-up care, call the physicians office for an appointment as you were instructed or within the next two days. If you experience worsening or a significant change in your symptoms, notify the physician immediately or return to the Emergency Department at any time for re-evaluation. Please call your primary care and personal injury law specialist that you are already seeing and schedule a follow-up for your knee and back pain. The x-rays for your back were negative at this time you have been started on muscle relaxers. Your knee x-ray shows some calcification to the medial aspect of the knee this could be from your previous surgery or from a avulsion fracture which means a small chip pulled away from the bone. Either way you need to follow-up with the personal injury law specialist. I have sent you home with a CD of your back and knee x- rays to follow-up with the personal injury law specialist Prescriptions: Methocarbamol [Robaxin 500 mg Tablet] 500 mg PO BIDP PRN #20 tablet PRN Reason: Forms: Elevated Blood Pressure, Return to Work
--- NOTE | 2018-12-07 00:37 | RADIOLOGY REPORT (SQ) ---
EXAM DESCRIPTION: XR LUMBAR SPINE ANTEROPOSTERIOR, LATERAL, AND OBLIQUES COMPLETED DATE/TME: 12/06/2018 23:07 CLINICAL HISTORY: 28 years, Male, pain and injury COMPARISON: None. NUMBER OF VIEWS: 5 TECHNIQUE: 5 view lumbar spine LIMITATIONS: None. FINDINGS: Vertebral body height and alignment is preserved. The disc spaces are maintained. No pars defects. IMPRESSION: Negative exam copyright 2010 [employer]- All Rights Reserved
--- NOTE | 2018-12-07 00:40 | RADIOLOGY REPORT (SQ) ---
EXAM: X-ray knee four or more views CLINICAL DATA: 28-year-old male status post fall with pain TECHNICAL DATA: Four x-ray views of the right knee were performed on 12/06/2018 at 11:46 PM. COMPARISONS: 01/30/2018 FINDINGS: There is a small linear calcific density adjacent to the medial femoral condyle which is not identified on the prior study. This could potentially represent a tiny avulsion fracture or ligamentous calcification. Otherwise, no definite fracture identified. There is no significant arthritis or degenerative change. No focal lytic or sclerotic bone lesions are seen. A surgical staple projects along the distal lateral femoral metaphysis. There are remote postsurgical changes of the patella. Bone mineralization is normal. No focal soft tissue abnormalities are identified. IMPRESSION: 1. Small linear calcific density adjacent to the medial femoral condyle which is not identified on the prior study and could represent a tiny avulsion fracture or ligamentous calcification. 2. Otherwise, no evidence of acute osseous abnormality involving the right knee. 3. There are remote postsurgical changes of the patella.
[2018-12-07] MEDS ORDERED: METHOCARBAMOL 500 MG TABLET PO ONE (01:06)
[2018-12-07 01:13] VITALS: BP 117/74
== END 2018-12-07 01:37 | disposition home or self-care (01) ==
LOC: ER 20:48
DX: S89.91XA Unspecified injury of right lower leg, initial encounter (principal); M54.5 Low back pain; M25.561 Pain in right knee; W19.XXXA Unspecified fall, initial encounter; Y92.009 Unspecified place in unspecified non-institutional (private) residence as the place of occurrence of the external cause
CPT/HCPCS: 99283; 96374; 96375; 73564; 72110; L1830; J1885; J1100

== ENCOUNTER 2019-01-01 12:42 | Emergency (ER) | payer OTHER ==
[2019-01-01 12:54] VITALS: BP 121/66
[2019-01-01] MEDS ORDERED: KETOROLAC TROMETHAMINE 60 MG/2 ML SDV IM ONE (13:19)
[2019-01-01] MEDS ORDERED: CYCLOBENZAPRINE HCL 10 MG TABLET PO ONE (13:19)
--- NOTE | 2019-01-01 13:37 | ER Document Report ---
HPI - HPI Time Seen by Provider: 01/01/19 13:18 Pain Level: Denies Notes: Patient is an otherwise healthy 28-year-old male presents emergency department chief complaint of rash. Patient reports he has a rash to both of his wrists and forearms. He is unsure how they got there but states he has noticed them for several days now. He reports that this rash is very irritating to him but not necessarily painful. He does report that he works in a [employer] and has exposure to many people. - REPRODUCTIVE Reproductive: DENIES: : Past Medical History - General Information source: Patient - Social History Smoking Status: Never Smoker Frequency of alcohol use: None Drug Abuse: None Family History: Reviewed & Not Pertinent Pulmonary Medical History: Reports: Hx Bronchitis Renal/ Medical History: Reports: Hx Kidney Stones. Denies: Hx Peritoneal Dialysis Musculoskeletal Medical History: Reports Hx Arthritis, Reports Hx Musculoskeletal Deformity - Degenerative disc disease, Reports Hx Musculoskeletal Trauma Traumatic Medical History: Reports: Hx Fractures - Left hand Past Surgical History: Reports: Hx Orthopedic Surgery - L hand with screws in place; right knee tendon ligaments - Immunizations Immunizations up to date: Yes Hx Diphtheria, Pertussis, Tetanus Vaccination: Yes - unknown Vertical Provider Document - CONSTITUTIONAL Notes: PHYSICAL EXAMINATION: GENERAL: Well-appearing, well-nourished and in no acute distress. HEAD: Atraumatic, normocephalic. EYES: Pupils equal round extraocular movements intact, conjunctiva are normal. ENT: Nares patent. NECK: Normal range of motion LUNGS: No respiratory distress Musculoskeletal: Normal range of motion NEUROLOGICAL: Normal speech, normal gait. PSYCH: Normal mood, normal affect. SKIN: Linear maculopapular rash noted to patient's bilateral hands and forearms. Some areas are scabbed over. - INFECTION CONTROL TRAVEL OUTSIDE OF THE [place] IN LAST 30 DAYS: No Course - Re-evaluation Re-evalutation: Rash is most consistent with scabies. Patient will be started on appropriate medication and instructed to to wash all linens in his home and watch for the rash on other members of his household. The patient's emergency department workup and current diagnosis were explained to the patient and or family. Follow-up instructions were provided. Medications if prescribed were discussed. Instructions for when to return to the emergency department including specific worrisome symptoms were discussed with t he patient and/or family. - Vital Signs Vital signs: Temp Pulse Resp BP Pulse Ox 98.5 F 93 18 121/66 97 01/01/19 12:53 01/01/19 12:53 01/01/19 12:53 01/01/19 12:53 01/01/19 12:53 Discharge - Discharge Clinical Impression: Scabies Condition: Stable Disposition: HOME, SELF-CARE Additional Instructions: Scabies Your exam suggests the presence of scabies, which are microscopic parasites of the skin. These mites marlys through the skin, causing severe itching. The mite can be spread to other persons by skin contact. All clothing, towels, and bedding should be washed in very hot water, set aside for a week, then washed again. You should apply scabies-killing lotion from the neck down, then wash it off after 12 hours. You may need medication for itching, as the itch persists for many days after the mites have been killed. All family members and close personal contacts should be examined. Repeat treatment may be necessary if the infestation is not eliminated with a single treatment. Call the doctor if you develop increasing swelling and redness, red streaks, tender lumps, fever, or drainage from a skin sore. Please take medication as prescribed. You may want to consider taking some Benadryl if the areas are bothersome to you. As for the area of discomfort on your face please apply warm soaks to the area as hot as you can stand them 3-4 times daily. This will hopefully allow this to come to ahead. Please follow-up with your primary care provider. Prescriptions: Hydrocortisone/Oatmeal/Aloe/E [Hydrocortisone 1% Cream] 1 gm TP BID #28.4 cream.gm. Permethrin [Nix 1% Lotion 59 ml] 1 applic TP ONCE #2 bottle
== END 2019-01-01 13:46 | disposition home or self-care (01) ==
LOC: ER 12:42
DX: B86 Scabies (principal); R21 Rash and other nonspecific skin eruption
CPT/HCPCS: 99282

== ENCOUNTER 2019-01-15 15:43 | Emergency (ER) | payer OTHER ==
[2019-01-15] MEDS ORDERED: LIDOCAINE 2% INJ (20 MG/ML) 20 ML MDV INJ ONE (17:46)
--- NOTE | 2019-01-15 17:48 | ER Document Report ---
ED General - General Chief Complaint: Abscess Stated Complaint: POSSIBLE ABSCESS Time Seen by Provider: 01/15/19 17:08 Primary Care Provider: JOJO CRABTREE MD [NAVYA TORREZ] - Follow up in 1 week (for surgical follow up) TRAVEL OUTSIDE OF THE [place] IN LAST 30 DAYS: No - HPI Notes: 28-year-old male to the emergency department with several days of progressively worsening pain and swelling to his gluteal cleft. He states that he now has difficulty sitting down. He states he is never had a pilonidal abscess. He denies any fevers, chills. - Related Data Allergies/Adverse Reactions: No Known Drug Allergies Allergy (Verified 01/15/19 15:44) bee sting Allergy (Uncoded 01/15/19 15:44) Past Medical History - General Information source: Patient - Social History Smoking Status: Never Smoker Frequency of alcohol use: None Drug Abuse: None Family History: Reviewed & Not Pertinent Patient has suicidal ideation: No Patient has homicidal ideation: No Pulmonary Medical History: Reports: Hx Bronchitis Renal/ Medical History: Reports: Hx Kidney Stones. Denies: Hx Peritoneal Dialysis Musculoskeletal Medical History: Reports Hx Arthritis, Reports Hx Musculoskeletal Deformity - Degenerative disc disease, Reports Hx Musc uloskeletal Trauma Traumatic Medical History: Reports: Hx Fractures - Left hand Past Surgical History: Reports: Hx Orthopedic Surgery - L hand with screws in place; right knee tendon ligaments - Immunizations Immunizations up to date: Yes Hx Diphtheria, Pertussis, Tetanus Vaccination: Yes - unknown Review of Systems - Review of Systems Constitutional: denies: Chills, Fever EENT: No symptoms reported Cardiovascular: denies: Chest pain, Orthopnea, Dyspnea, Syncope Respiratory: denies: Cough, Short of breath Gastrointestinal: denies: Abdominal pain, Diarrhea, Nausea Skin: See HPI, Other - painful lump to the gluteal cleft Hematologic/Lymphatic: No symptoms reported Neurological/Psychological: No symptoms reported -: Yes All other systems reviewed and negative Physical Exam - Vital signs Vitals: Temp Pulse Resp BP Pulse Ox 99.3 F 86 18 142/85 H 96 01/15/19 16:01 01/15/19 16:01 01/15/19 16:01 01/15/19 16:01 01/15/19 16:01 Interpretation: Normal - General General appearance: Appears well, Alert - HEENT Head: Normocephalic, Atraumatic Eyes: Normal Pupils: PERRL - Respiratory Respiratory status: No respiratory distress Chest status: Nontender Breath sounds: Normal Chest palpation: Normal - Cardiovascular Rhythm: Regular Heart sounds: Normal auscultation Murmur: No - Psychological Associated symptoms: Normal affect, Normal mood - Skin Skin Temperature: Warm Skin Moisture: Dry Skin Color: Erythema Skin irregularity: Abscess - There is an indurated and fluctuant pilonidal abscess to the gluteal cleft with no sinus tracking. There is mild cellulitis surrounding the pilonidal abscess. There is no active drainage there is no perirectal involvement. Course - Re-evaluation Re-evalutation: Impression: Pilonidal abscess. Patient tolerated incision and drainage well. Significant amount of copious foul-smelling purulent drainage was drained from the site. Half-inch packing was placed. Patient was placed on antibiotics. Urged to return if any worsening symptoms. Urged to return for wound check in 2 days. Will give general surgery follow-up. Patient agrees with the plan. - Vital Signs Vital signs: Temp Pulse Resp BP Pulse Ox 98.3 F 79 16 143/97 H 100 01/15/19 19:53 01/15/19 19:53 01/15/19 19:53 01/15/19 19:53 01/15/19 19:53 Procedures - Incision and Drainage Mid- Buttock Type: Complex Anesthetic type: 2% Lidocaine mL's of anesthetic: 6 Blade size: 11 I&D procedure: Betadine prep applied, Shurclens applied, Iodoform packing placed Incision Method: Incision made by scalpel Amount/type of drainage: Copious amount of purulent foul-smelling drainage from site Discharge - Discharge Clinical Impression: Pilonidal abscess Condition: Stable Disposition: HOME, SELF-CARE Instructions: Abscess ([facility]) Additional Instructions: WOUND CHECK IN TWO DAYS. COMPLETE ANTIBIOTICS. PUSH FLUIDS. RETURN IF WORSENING IN THE NEXT 24 HOURS. APPLY WARM COMPRESSES. Prescriptions: Sulfamethoxazole/Trimethoprim [Bactrim Ds Tablet] 1 each PO BID #20 tablet Cephalexin Monohydrate [Keflex 500 mg Capsule] 500 mg PO QID #40 capsule Hydrocodone/Acetaminophen [Mather 5-325 mg Tablet] 1 tab PO Q6H #10 tablet Forms: Return to Work Referrals: JOJO CRABTREE MD [NAVYA TORREZ] - Follow up in 1 week (for surgical follow up)
[2019-01-15] MEDS ORDERED: IBUPROFEN 800 MG TABLET PO ONE (19:20)
[2019-01-15 19:56] VITALS: BP 143/97
[2019-01-15] MEDS ORDERED: HYDROCODONE/ACETAMINOPHEN 5-325 MG (6 TAB/ER DISP) PO PRN (19:56)
== END 2019-01-15 20:05 | disposition home or self-care (01) ==
LOC: ER 15:43
DX: L05.01 Pilonidal cyst with abscess (principal); Z87.442 Personal history of urinary calculi; Z91.030 Bee allergy status
CPT/HCPCS: 10081; J3490; 99283

== ENCOUNTER 2019-01-17 10:16 | Emergency (ER) | payer OTHER ==
--- NOTE | 2019-01-17 10:39 | ER Document Report ---
HPI - HPI Patient complains to provider of: abscess recheck Time Seen by Provider: 01/17/19 10:31 Onset: Other Onset/Duration: Sudden Quality of pain: No pain Pain Level: Denies Context: This 28-year-old male presents emergency department for abscess recheck. Reports 2 days ago he had a pilonidal cyst drained. He reports the site feels better. Denies fever vomiting diarrhea. Reports he is never had this before. Patient also reports he has been taking his antibiotics as prescribed. Associated Symptoms: None Exacerbated by: Denies Relieved by: Denies Similar symptoms previously: Yes Recently seen / treated by doctor: Yes - REPRODUCTIVE Reproductive: DENIES: : Past Medical History - General Information source: Patient - Social History Smoking Status: Unknown if Ever Smoked Cigarette use (# per day): No Frequency of alcohol use: None Drug Abuse: None Lives with: Family Family History: Reviewed & Not Pertinent Patient has suicidal ideation: No Patient has homicidal ideation: No Pulmonary Medical History: Reports: Hx Bronchitis Renal/ Medical History: Reports: Hx Kidney Stones. Denies: Hx Peritoneal Dialysis Musculoskeletal Medical History: Reports Hx Arthritis, Reports Hx Musculoskeletal Deformity - Degenerative disc disease, Reports Hx Musculoskeletal Trauma Traumatic Medical History: Reports: Hx Fractures - Left hand Past Surgical History: Reports: Hx Orthopedic Surgery - L hand with screws in place; right knee tendon ligaments - Immunizations Immunizations up to date: Yes Hx Diphtheria, Pertussis, Tetanus Vaccination: Yes - unknown Vertical Provider Document - CONSTITUTIONAL Agree With Documented VS: Yes Exam Limitations: No Limitations General Appearance: WD/WN, No Apparent Distress - INFECTION CONTROL TRAVEL OUTSIDE OF THE [place] IN LAST 30 DAYS: No - HEENT HEENT: Atraumatic, Normocephalic - NECK Neck: Supple - RESPIRATORY Respiratory: No Respiratory Distress - CARDIOVASCULAR Cardiovascular: Regular Rate - BACK Back: Normal Inspection - MUSCULOSKELETAL/EXTREMETIES Musculoskeletal/Extremeties: MAEW, FROM - NEURO Level of Consciousness: Awake, Alert, Appropriate Motor/Sensory: No Motor Deficit - DERM Integumentary: Warm, Dry, Abscess - Healing pilonidal abscess with packing in place. Packing removed. Very little drainage. No induration. No erythema. Patient reports slight feels better Course - Re-evaluation Re-evalutation: 01/17/19 12:09 28-year-old male with recent drainage of pilonidal cyst 2 days ago. Site looks good. Packing removed. Very little drainage noted. No erythema no induration. Patient was instructed to keep an eye on the area keep it clean and take medication as prescribed. He verbalized understanding to all instructions. He was also instructed to return here if the site looks like it starting to get infected again. Dictation of this chart was performed using voice recognition software; therefore, there may be some unintended grammatical errors. Discharge - Discharge Clinical Impression: Abscess re-check Condition: Stable Disposition: HOME, SELF-CARE Instructions: Abscess ([facility]) Additional Instructions: *You have been treated for an abscess recheck *Continue to take medication as prescribed *Monitor the site for signs of increasing infection such as increasing pain, redness, swelling, warmth *Keep the area clean *Follow up with a primary care provider within one week for recheck *Return to ED for signs of increasing infection, worsening condition,fever, changes, needs
[2019-01-17 11:05] VITALS: BP 126/68
== END 2019-01-17 11:05 | disposition home or self-care (01) ==
LOC: ER 10:16
DX: L05.01 Pilonidal cyst with abscess (principal)
CPT/HCPCS: 99282

== ENCOUNTER 2019-01-25 19:00 | Emergency (ER) | payer OTHER ==
--- NOTE | 2019-01-25 20:11 | ER Document Report ---
ED Medical Screen (RME) - General Chief Complaint: Chest Pain Stated Complaint: CHEST PAIN Time Seen by Provider: 01/25/19 20:03 Mode of Arrival: Ambulatory Information source: Patient Notes: Patient is a otherwise healthy 28-year-old obese male presenting to the emergency department chief complaint of cough that began last night. Patient reports he has been coughing so hard that he is causing himself to have chest pain. Patient reports the chest pain feels like a sharp stabbing pain with intermittent pressure. He denies any radiation of the pain. He does report he vomited one time today but states this was after a long spell of coughing. He denies any fevers. Exam: Lung sounds clear and equal to auscultation. Heart sounds S1-S2 present with no ectopy noted. I have greeted and performed a rapid initial assessment of this patient. A comprehensive ED assessment and evaluation of the patient, analysis of test results and completion of the medical decision making process will be conducted by additional ED providers. I have specifically instructed the patient or family members with the patient to immediately return to any nursing staff should anything change in the patient's condition or with their chief complaint. This medical record was dictated with voice recognizing software. There may be grammatical, syntax errors that are unintended. TRAVEL OUTSIDE OF THE [place] IN LAST 30 DAYS: No - Related Data Allergies/Adverse Reactions: No Known Drug Allergies Allergy (Verified 01/25/19 19:01) bee sting Allergy (Uncoded 01/25/19 19:01) Past Medical History - Social History Family history: Reviewed & Not Pertinent Pulmonary Medical History: Reports: Hx Bronchitis Renal/ Medical History: Reports: Hx Kidney Stones. Denies: Hx Peritoneal Dialysis Musculoskeltal Medical History: Reports Hx Arthritis, Reports Hx Musculoskeletal Deformity - Degenerative disc disease, Reports Hx Musculoskeletal Trauma Traumatic Medical History: Reports: Hx Fractures - Left hand Past Surgical History: Reports: Hx Orthopedic Surgery - L hand with screws in place; right knee tendon ligaments - Immunizations Immunizations up to date: Yes Hx Diphtheria, Pertussis, Tetanus Vaccination: Yes - unknown History of Influenza Vaccine for 02/2017 - 07/2017 Season: Unknown Physical Exam - Vital signs Vitals: Temp Pulse Resp BP Pulse Ox 99.5 F 103 H 16 117/76 94 01/25/19 19:21 01/25/19 19:21 01/25/19 19:21 01/25/19 19:21 01/25/19 19:21 Course - Vital Signs Vital signs: Temp Pulse Resp BP Pulse Ox 99.5 F 103 H 16 117/76 94 01/25/19 19:21 01/25/19 19:21 01/25/19 19:21 01/25/19 19:21 01/25/19 19:21
--- NOTE | 2019-01-25 21:15 | RADIOLOGY REPORT (SQ) ---
XR CHEST 2 VIEWS EXAM DATE: 01/25/2019 8:09 PM CDT HISTORY: Cough/chest pain. COMPARISON: None. FINDINGS: The heart size is within normal limits. There is an opacity at the left lung base. No large pleural effusions or pneumothorax. The bony thorax is intact. IMPRESSION: Left lung base opacity which may represent infection or atelectasis.
--- NOTE | 2019-01-25 22:16 | ER Document Report ---
ED Cardiac - General Chief Complaint: Chest Pain Stated Complaint: CHEST PAIN Time Seen by Provider: 01/25/19 22:16 Mode of Arrival: Ambulatory Information source: Patient, Relative Notes: HISTORY OF PRESENT ILLNESS: Patient is a 28-year-old male with a past medical history of bronchitis who presents with cough with chest pain for the past week and a half. Patient reports that it started off as chest congestion with "a chest cold," however the cough is getting worse and now is mildly productive. Patient denies fevers or chills, reports coughing causes sharp pain in the middle of his chest with no radiation. Location: Chest Onset: 9 to 10 days ago Alleviation: None Provocation: Coughing Quality: Sharp Radiation: None Severity: Mild to moderate Timing: Persistent History of CAD: None Associated symptoms: No fevers or chills, no diaphoresis, no swelling of extremities REVIEW OF SYSTEMS: CONSTITUTIONAL : Denies fever or chills, no sweats. Denies recent illness. EENT: Denies eye, ear, throat, or mouth pain or symptoms. Denies nasal or sinus congestion. CARDIOVASCULAR: Positive for chest pain. Denies swelling of the legs. RESPIRATORY: Positive for cough and congestion. Denies shortness of breath or difficulty breathing. Denies wheezing. GASTROINTESTINAL: Denies abdominal pain. Denies nausea, vomiting, or diarrhea. Denies constipation. GENITOURINARY: Denies difficulty urinating, painful urination, burning, frequency, or blood in urine. MUSCULOSKELETAL: Denies neck or back pain or joint pain or swelling. SKIN: Denies rash or skin lesions. HEMATOLOGIC : Denies easy bruising or bleeding. LYMPHATIC: Denies swollen, enlarged glands. NEUROLOGICAL: Denies altered mental status or loss of consciousness. Denies headache. Denies weakness or paralysis or loss of use of either side. Denies problems with gait or speech. Denies sensory or motor loss. PSYCHIATRIC: Denies anxiety or stress or depression. All other systems reviewed and negative. PHYSICAL EXAMINATION: GENERAL: Well-appearing, well-nourished and in no acute distress. HEAD: Atraumatic, normocephalic. No scalp deformity, depression, or crepitance. EYES: Pupils are 3 mm and equal/round/reactive to light, extraocular movements intact, sclera anicteric, conjunctiva are normal. ENT: Nares patent bilaterally, oropharynx. Moist mucous membranes. No tonsil hypertrophy. NECK: Normal range of motion, supple without lymphadenopathy. LUNGS: Breath sounds present, equal, and clear to auscultation bilaterally. No wheezes, rales, or rhonchi. HEART: Regular rate and rhythm without murmurs, rubs, or gallops. 2+ peripheral pulses. Normal capillary refill. ABDOMEN: Soft, nontender, nondistended. Normoactive bowel sounds. No guarding, no rebound. No masses appreciated. BACK: Normal contour, no midline tenderness. Rectal exam deferred. GENITAL/PELVIC: Deferred. EXTREMITIES: Normal range of motion, no pitting or edema. No cyanosis. NEUROLOGICAL: No focal neurological deficits. Moves all extremities spontaneously and on command. PSYCH: Normal mood, normal affect. No suicidal thoughts/ideations. No homicidal thoughts/ideations. No hallucinations. SKIN: Warm, dry, normal turgor, no rashes or lesions noted. ASSESSMENT AND PLAN: This patient is a 28-year-old male who presents with sharp chest pain secondary to cough. 1. Will obtain labs, urine, cardiac enzymes, and chest x-ray. 2. Will write treat symptomatically as necessary. TRAVEL OUTSIDE OF THE [place] IN LAST 30 DAYS: No - HPI Patient complains to provider of: Chest pain, Other - Cough Was the onset of pain: Gradual When did pain begin: Began "a week and a half ago" Is the pain a: New problem Chest pain location: Pleuritic Quality of pain: Sharp Chest pain radiation location: denies: Left jaw, Left arm, Left shoulder, Right jaw, Right arm, Right shoulder, Back, Neck, None Severity now: Mild Severity at worst: Moderate Pain level currently: 1 Chest pain precipitating factors: Coughing Cardiac risk factors: None Positive cardiac history: No Associated symptoms: Other - Cough and congestion Exacerbated by: Denies Relieved by: Nothing Similar symptoms previously: No Recently seen / treated by doctor: No - Related Data Allergies/Adverse Reactions: tramadol [From Ultram] Allergy (Verified 01/25/19 23:11) bee sting Allergy (Uncoded 01/25/19 19:01) Past Medical History - General Information source: Patient, Relative - Social History Smoking Status: Never Smoker Chew tobacco use (# tins/day): No Frequency of alcohol use: None Drug Abuse: None Lives with: Family Family History: Reviewed & Not Pertinent Patient has suicidal ideation: No Patient has homicidal ideation: No - Past Medical History Cardiac Medical History: Reports: None Pulmonary Medical History: Reports: Hx Bronchitis EENT Medical History: Reports: None Neurological Medical History: Reports: None Endocrine Medical History: Reports: None Renal/ Medical History: Reports: Hx Kidney Stones. Denies: Hx Peritoneal Dialysis Malignancy Medical History: Reports None GI Medical History: Reports: None Musculoskeletal Medical History: Reports Hx Arthritis, Reports Hx Musculoskeletal Deformity - Degenerative disc disease, Reports Hx Musculoskeletal Trauma Skin Medical History: Reports None Psychiatric Medical History: Reports: None Traumatic Medical History: Reports: Hx Fractures - Left hand Infectious Medical History: Reports: None Past Surgical History: Reports: Hx Orthopedic Surgery - L hand with screws in place; right knee tendon ligaments - Immunizations Immunizations up to date: Yes Hx Diphtheria, Pertussis, Tetanus Vaccination: Yes - unknown Review of Systems - Review of Systems Constitutional: No symptoms reported EENT: No symptoms reported Cardiovascular: See HPI, Chest pain Respiratory: See HPI, Cough, Hurts to breathe Gastrointestinal: No symptoms reported Genitourinary: No symptoms reported Male Genitourinary: No symptoms reported Musculoskeletal: No symptoms reported Skin: No symptoms reported Hematologic/Lymphatic: No symptoms reported Neurological/Psychological: No symptoms reported -: Yes All other systems reviewed and negative Physical Exam - Vital signs Vitals: Temp Pulse Resp BP Pulse Ox 99.5 F 103 H 16 117/76 94 01/25/19 19:21 01/25/19 19:21 01/25/19 19:21 01/25/19 19:21 01/25/19 19:21 Interpretation: Normal Course - Re-evaluation Re-evalutation: 01/26/19 01:59 Labs are unremarkable. Chest x-ray is consistent with a likely developing pneumonia. Will discharge the patient home with strict return precautions and follow-up with primary care. All results were explained to and discussed with the patient, and all questions addressed and answered for the patient. The patient and his voice both understanding and agreeing with the plan. - Vital Signs Vital signs: Temp Pulse Resp BP Pulse Ox 99 F 103 H 20 117/75 95 01/26/19 01:01 01/25/19 19:21 01/26/19 01:30 01/26/19 01:30 09/17/19 01:30 - Diagnostic Test Radiology reviewed: Image reviewed, Reports reviewed Discharge - Discharge Clinical Impression: Atypical pneumonia Condition: Good Disposition: HOME, SELF-CARE Instructions: Family Physicians / Practices, Pneumonia ([facility]) Additional Instructions: You have been evaluated in the Emergency Department for cough and chest pain related to a likely early pneumonia. While here, you had blood work that was normal and it is now safe to be discharged home. Please follow-up with your primary physician as instructed in one week to be rechecked. Return to the Emergency Department if you experience worsening cough, worsening pain, difficul ty breathing, high fevers uncontrolled with medications, or any other concerning symptoms. Prescriptions: Codeine Phosphate/Guaifenesin [Cheratussin Ac Syrup] 10 ml PO Q6 PRN 7 Days #280 liquid PRN Reason: Cough Levofloxacin [Levaquin 500 mg Tablet] 500 mg PO DAILY #10 tablet Forms: Return to Work Print Language: Cypriot
[2019-01-26] MEDS ORDERED: ACETAMINOPHEN WITH CODEINE 120-12 MG/5 ML UDCUP PO ONE (00:59)
[2019-01-26] MEDS ORDERED: LEVOFLOXACIN 500 MG TABLET PO ONE (00:59)
[2019-01-26 02:17] VITALS: BP 105/64
--- NOTE | 2019-01-26 07:29 | EKG REPORT ---
SEVERITY:- BORDERLINE ECG - SINUS RHYTHM BORDERLINE T ABNORMALITIES, INFERIOR LEADS : Confirmed by: Amrik Perez MD 26-Jan-2019 07:28:46
== END 2019-01-26 02:16 | disposition home or self-care (01) ==
LOC: ER 19:00
DX: J18.8 Other pneumonia, unspecified organism (principal); R07.9 Chest pain, unspecified; R06.00 Dyspnea, unspecified
CPT/HCPCS: 93005; 36415; 84484; 71046; 93010; J3490

== ENCOUNTER 2019-04-22 22:48 | Emergency (ER) | payer OTHER ==
[2019-04-23] MEDS ORDERED: METHOCARBAMOL 750 MG TABLET PO ONE (01:19)
--- NOTE | 2019-04-23 01:25 | ER Document Report ---
ED General - General Chief Complaint: Back Injury Stated Complaint: FALL Time Seen by Provider: 04/23/19 00:58 Notes: 28-year-old male presents emergency department stating that he was hanging [employer] around 3 PM this afternoon when he fell off of a ladder about 6 feet in the air. States he landed flat on his back and has been having pain in his mid back ever since then. Patient states it did not improve with ice, it worsened with heat. Denies any numbness or tingling, denies any difficulty walking aside from pain in his mid to low back. Denies any bowel or bladder dysfunction. States that initially he did not want to come to the emergency department, but since the pain is been getting progressively worse he thought he needs to be checked out. TRAVEL OUTSIDE OF THE [place] IN LAST 30 DAYS: No - Related Data Allergies/Adverse Reactions: tramadol [From [facility]] Allergy (Verified 01/25/19 23:11) bee sting Allergy (Uncoded 01/25/19 19:01) Past Medical History - General Information source: Patient - Social History Smoking Status: Never Smoker Frequency of alcohol use: Rare Drug Abuse: None Family History: Reviewed & Not Pertinent Patient has suicidal ideation: No Patient has homicidal ideation: No Pulmonary Medical History: Reports: Hx Bronchitis Renal/ Medical History: Reports: Hx Kidney Stones. Denies: Hx Peritoneal Dialysis Musculoskeletal Medical History: Reports Hx Arthritis, Reports Hx Musculoskeletal Deformity - Degenerative disc disease, Reports Hx Musculoskeletal Trauma Traumatic Medical History: Reports: Hx Fractures - Left hand Past Surgical History: Reports: Hx Orthopedic Surgery - L hand with screws in place; right knee tendon ligaments - Immunizations Immunizations up to date: Yes Hx Diphtheria, Pertussis, Tetanus Vaccination: Yes - unknown Review of Systems - Review of Systems Constitutional: No symptoms reported Musculoskeletal: See HPI Neurological/Psychological: No symptoms reported -: Yes All other systems reviewed and negative Physical Exam - Vital signs Vitals: Temp Pulse Resp BP Pulse Ox 98.6 F 77 16 129/88 H 97 04/22/19 22:54 04/22/19 22:54 04/22/19 22:54 04/22/19 22:54 04/22/19 22:54 Interpretation: Normal - Notes Notes: GENERAL: Alert, interacts well. No acute distress. HEAD: Normocephalic, atraumatic EYES: Pupils equal, round and reactive to light, extraocular movements intact. ENT: Oral mucosa moist, tongue midline. NECK: Full range of motion, supple, trachea midline. LUNGS: Clear to auscultation bilaterally, no wheezes, rales or rhonchi, no respiratory distress. HEART: Regular rate and rhythm, no murmurs, gallops, rubs. ABDOMEN: Soft, nontender, nondistended, bowel sounds present in all 4 quadrants. BACK: Some bony tenderness to palpation around T11-T12, no step-offs and no deformities, no obvious contusion or bruising. EXTREMITIES: Moves all 4 extremities spontaneously, no edema, radial and dorsalis pedis pulses 2/4 bilaterally. No cyanosis. NEUROLOGICAL: Alert and oriented x3, normal speech, biceps and patellar DTRs 2+ bilaterally. 5 out of 5 great toe raising strength bilaterally. Negative straight leg raising test bilaterally. PSYCH: Normal mood, normal affect. SKIN: Warm, Dry, normal turgor, no rashes or lesions noted. Course - Re-evaluation Re-evalutation: 04/23/19 01:40 Patient is able to ambulate without difficulty. Discussed with patient that given a fall of 6 feet directly onto his back we could do x-rays, patient states he really does not want x-rays, thinks this is just all muscle pain. At this time given the lack of neurologic symptoms and how long he has been doing well without being examined I think it is okay to defer x-rays for 24 to 48 hours to see if muscle relaxers and anti-inflammatories help. Patient will return for any new or concerning symptoms. Discussed all red flag symptoms with him that would show signs of cauda equina. Discharged home. - Vital Signs Vital signs: Temp Pulse Resp BP Pulse Ox 98.6 F 77 16 129/88 H 97 04/22/19 22:54 04/22/19 22:54 04/22/19 22:54 04/22/19 22:54 04/22/19 22:54 Discharge - Discharge Clinical Impression: Fall Qualifiers: Encounter type: initial encounter Qualified Code(s): W19.XXXA - Unspecified fall, initial encounter Acute back pain Qualifiers: Back pain location: thoracic back pain Back pain laterality: midline Qualified Code(s): M54.6 - Pain in thoracic spine Condition: Stable Disposition: HOME, SELF-CARE Additional Instructions: Low Back Pain Three out of every four people will have an episode of disabling back pain during their lifetime. Most commonly the pain is due to straining of the muscles and ligaments in the low back. Usual treatment includes: (1) Rest on a firm surface. Avoid lying on your stomach. (2) Ice pack the painful area. After a few days, gentle heat may be used intermittently to relax the area, or ice packs can be continued. (3) Medication may be needed -- muscle relaxers and antiinflammatory medicines are commonly used. (4) As the back improves, exercises are prescribed to strengthen the back and abdominal muscles. Your doctor will advise you on the proper care for your back at each stage in your recovery. You may be better in a few days -- or healing may take sever al weeks. If new symptoms of a "herniated disc" (radiation of pain, numbness, or tingling down the back of the leg or weakness in the leg) occur, you should be re-examined. Further testing may be necessary. Please use ibuprofen (Motrin or Advil) 600-800 mg every 8 hours as needed for pain or fever. You may also use acetaminophen (Tylenol) 1000 mg every 4-6 hours as needed for pain or fever. Please be aware that many medications contain acetaminophen, do not exceed a total of 1000 mg of acetaminophen every 6 hours. Prescriptions: Methocarbamol [Robaxin 750 mg Tablet] 750 mg PO ASDIR PRN #40 tablet PRN Reason: Forms: Return to Work
[2019-04-23 01:58] VITALS: BP 123/89
== END 2019-04-23 01:57 | disposition home or self-care (01) ==
LOC: ER 22:48
DX: M54.6 Pain in thoracic spine (principal); W11.XXXA Fall on and from ladder, initial encounter; Y93.89 Activity, other specified; Z88.6 Allergy status to analgesic agent; Z91.030 Bee allergy status
CPT/HCPCS: 99283; J3490

== ENCOUNTER 2019-05-16 04:32 | Emergency (ER) | payer OTHER ==
[2019-05-16] MEDS ORDERED: KETOROLAC TROMETHAMINE INJ/PF 30 MG/1 ML SDV IM ONE (09:30)
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
[2019-05-16 09:51] VITALS: BP 119/68
== END 2019-05-16 10:05 | disposition home or self-care (01) ==
LOC: ER 04:32
DX: M54.5 Low back pain (principal); M79.604 Pain in right leg; Z87.442 Personal history of urinary calculi
CPT/HCPCS: 99283; 96372; J1885

== ENCOUNTER 2019-07-25 09:44 | Emergency (ER) | payer OTHER ==
--- NOTE | 2019-07-25 09:57 | ER Document Report ---
HPI - HPI Time Seen by Provider: 07/25/19 09:49 Pain Level: 1 Context: 29-year-old male presents emergency department with complaints of sore throat and cough for the past 4 days. Denies fever vomiting diarrhea. Unknown exposure to strep. Did not receive his flu vaccine this year. Denies body aches. Reports he is coughing up mucus. 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 Denies: Hx Peritoneal Dialysis Musculoskeletal Medical History: Reports Hx Arthritis, Reports Hx Musculoskeletal Deformity - Degenerative disc disease, Reports Hx Musculoskeletal Trauma Traumatic Medical History: Reports: Hx Fractures - Left hand Past Surgical History: Reports: Hx Orthopedic Surgery - L hand with screws in place; right knee tendon ligaments - Immunizations Immunizations up to date: Yes Hx Diphtheria, Pertussis, Tetanus Vaccination: Yes - unknown Vertical Provider Document - CONSTITUTIONAL Agree With Documented VS: Yes Exam Limitations: No Limitations General Appearance: WD/WN, No Apparent Distress - nontoxic looking - INFECTION CONTROL TRAVEL OUTSIDE OF THE [place] IN LAST 30 DAYS: No - HEENT HEENT: Atraumatic, Normocephalic, Pharyngeal Erythema - Good airway no tonsillar hypertrophy opens mouth wide clear voice no trismus. negative: Conjuctival Injection, Pharyngeal Exudate, Tympanic Membrane Red, Tympanic Membrane Bulging - NECK Neck: Normal Inspection, Supple. negative: Lymphadenopathy-Left, Lymphadenopathy-Right - RESPIRATORY Respiratory: Breath Sounds Normal, No Respiratory Distress - CARDIOVASCULAR Cardiovascular: Regular Rate, Regular Rhythm - GI/ABDOMEN Gastrointestinal: Abdomen Soft, Abdomen Non-Tender - MUSCULOSKELETAL/EXTREMETIES Musculoskeletal/Extremeties: MAEW, FROM - NEURO Level of Consciousness: Awake, Alert, Appropriate Motor/Sensory: No Motor Deficit - DERM Integumentary: Warm, Dry, No Rash Course - Re-evaluation Re-evalutation: 07/25/19 09:55 29-year-old male presents with cough and sore throat for the past 4 days with no fever. No known exposure to strep. 07/25/19 10:31 Laboratory 07/25/19 09:55 Group A Strep Rapid NEGATIVE 07/25/19 10:47 pt instructed on neg strep, culture pending. Patient has clear voice respiratory rate even unlabored, no retractions. No coughing noted during entire interview and assessment. Patient instructed to return for concerns follow-up with primary care provider. He verbalized understanding to all instructions. - Vital Signs Vital signs: Temp Pulse Resp BP Pulse Ox 98.7 F 80 18 151/102 H 97 07/25/19 09:47 07/25/19 09:47 07/25/19 09:47 07/25/19 09:47 07/25/19 09:47 Discharge - Discharge Clinical Impression: Cough, Sore throat Condition: Stable Disposition: HOME, SELF-CARE Instructions: Sore Throat ([facility]) Additional Instructions: *You have been evaluated for a sore throat,cough *Your strep test is negative. A throat culture is pending. You may be contacted in 3 to 4 days should she need antibiotics *In the meantime gargle with warm salt water and suck on throat lozenges for comfort *Monitor your temperature, take Tylenol or Motrin as indicated *Do not let anyone drink/eat after you *Good hand washing *Follow-up with Dr. Bell within 1 week for recheck *Return to ED for worsening condition change, needs Monitor your blood pressure. Your blood pressure was elevated today. This may be because you were anxious, in pain or because you need medication. It is important to follow up with your primary care provider for full evaluation. Forms: Elevated Blood Pressure, Return to Work Referrals: MALU BELL MD [Primary Care Provider] - Follow up in 1 week
[2019-07-25 10:41] VITALS: BP 125/81
== END 2019-07-25 10:41 | disposition home or self-care (01) ==
LOC: ER 09:44
DX: J02.9 Acute pharyngitis, unspecified (principal); R05 Cough; Z87.442 Personal history of urinary calculi
CPT/HCPCS: 87070; 87880; 99283

== ENCOUNTER 2019-07-30 21:21 | Emergency (ER) | payer OTHER ==
[2019-07-30 21:32] VITALS: BP 140/82
[2019-07-30] MEDS ORDERED: PREDNISONE 20 MG TABLET PO ONE (21:36)
[2019-07-30] MEDS ORDERED: IPRATROPIUM/ALBUTEROL 0.5-2.5 MG/3 ML AMPUL NEB ONE (21:36)
--- NOTE | 2019-07-30 21:38 | ER Document Report ---
ED Medical Screen (RME) - General Chief Complaint: Chest Pain Stated Complaint: CHEST PAIN,SHORTNESS OF BREATH Time Seen by Provider: 07/30/19 21:36 Primary Care Provider: MALU BELL MD [Primary Care Provider] - Follow up as needed Notes: HPI: 29-year-old male presenting for reevaluation of shortness of breath. States he was here 5 days ago. States he had allergy symptoms. States he gets this once a year and it is usually a bronchitis. No fever. States he has had progressively worsening cough with some shortness of breath over the last 5 days. Reports chest pain with palpation or deep breathing. States he feels like he cannot take a deep breath in. Patient was also recently in [facility] but denies any recent ill contacts I have greeted and performed a rapid initial assessment of this patient. A comprehensive ED assessment and evaluation of the patient, analysis of test results and completion of the medical decision making process will be conducted by additional ED providers PHYSICAL EXAMINATION: Patient lung sounds are slightly decreased in the bases but otherwise clear to auscultation. Pulse oximetry 93% on room air mildly hypoxic. Patient becomes very minimally dyspneic with speaking. Regular rate and rhythm. There is tenderness across the anterior chest wall on palpation TRAVEL OUTSIDE OF THE [place] IN LAST 30 DAYS: No - Related Data Allergies/Adverse Reactions: tramadol [From [facility]] Allergy (Verified 07/25/19 09:48) bee sting Allergy (Uncoded 07/25/19 09:48) Past Medical History - Social History Family history: Reviewed & Not Pertinent Pulmonary Medical History: Reports: Hx Bronchitis Renal/ Medical History: Reports: Hx Kidney Stones. Denies: Hx Peritoneal Dialysis Musculoskeltal Medical History: Reports Hx Arthritis, Reports Hx Musculoskeletal Deformity - Degenerative disc disease, Reports Hx Musculoskeletal Trauma Traumatic Medical History: Reports: Hx Fractures - Left hand Past Surgical History: Reports: Hx Orthopedic Surgery - L hand with screws in place; right knee tendon ligaments - Immunizations Immunizations up to date: Yes Hx Diphtheria, Pertussis, Tetanus Vaccination: Yes - unknown Physical Exam - Vital signs Vitals: Temp Pulse Resp BP Pulse Ox 98.5 F 82 18 140/82 H 93 07/30/19 21:31 07/30/19 21:31 07/30/19 21:31 07/30/19 21:31 07/30/19 21:31 Course - Vital Signs Vital signs: Temp Pulse Resp BP Pulse Ox 98.5 F 82 18 140/82 H 93 07/30/19 21:31 07/30/19 21:31 07/30/19 21:31 07/30/19 21:31 07/30/19 21:31 Doctor's Discharge - Discharge Referrals: MALU BELL MD [Primary Care Provider] - Follow up as needed
--- NOTE | 2019-07-30 22:16 | RADIOLOGY REPORT (SQ) ---
EXAM DESCRIPTION: X-RAY CHEST 2 VIEWS CLINICAL HISTORY: 29 years, Male, cough COMPARISON: 01/25/2019 FINDINGS: PA and lateral chest radiographs were performed at 2158 hours on 07/30/2019. Comparison with the prior exam demonstrates no significant interval change. The lungs are adequately expanded and clear. The costophrenic sulci are sharp. Distortion of the pericardium at the right cardiophrenic angle is again noted and probably of no significance. The heart is normal in size with normal pulmonary vascularity. No acute bony abnormalities are seen. IMPRESSION: No acute cardiopulmonary disease.
[2019-07-30] MEDS ORDERED: PREDNISONE 20 MG TABLET ONE (22:44)
--- NOTE | 2019-07-30 23:39 | ER Document Report ---
Entered by BLAYNE BAXTER SCRIBE 07/30/19 2499 Acting as scribe for:RAQUEL KEVIN IV, MD ED General - General Chief Complaint: Shortness Of Breath Stated Complaint: CHEST PAIN,SHORTNESS OF BREATH Time Seen by Provider: 07/30/19 21:36 Primary Care Provider: MALU BELL MD [Primary Care Provider] - Follow up as needed Mode of Arrival: Ambulatory Information source: Patient Notes: This 29 year old male patient presents to the ED today with complaints of increased shortness of breath for the past x5 days. Patient was seen here x5 days ago for allergy symptoms and was advised to come back for worsening symptoms. Patient reports that he has this allergic reaction to the pollen about once a year and he is typically diagnosed with a bronchitis. Patient also reports reproducible chest pain that is worse with palpation and deep breaths. Patient denies tobacco use, but states that his is a current every day smoker. 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 Patient denies fever. TRAVEL OUTSIDE OF THE [place] IN LAST 30 DAYS: No - Related Data Allergies/Adverse Reactions: tramadol [From UltraYou[employer]] Allergy (Verified 07/25/19 09:48) bee sting Allergy (Uncoded 07/25/19 09:48) Past Medical History - General Information source: Patient, [facility] Records - Social History Smoking Status: Never Smoker Cigarette use (# per day): No Chew tobacco use (# tins/day): No Smoking Education Provided: No Family History: Reviewed & Not Pertinent Patient has suicidal ideation: No Patient has homicidal ideation: No Pulmonary Medical History: Reports: Hx Bronchitis Renal/ Medical History: Reports: Hx Kidney Stones Musculoskeletal Medical History: Reports Hx Arthritis, Reports Hx Musculoskeletal Deformity - Degenerative disc disease, Reports Hx Musculoskeletal Trauma Traumatic Medical History: Reports: Hx Fractures - Left hand Past Surgical History: Reports: Hx Orthopedic Surgery - L hand with screws in place; right knee tendon ligaments - Immunizations Immunizations up to date: Yes Hx Diphtheria, Pertussis, Tetanus Vaccination: Yes - unknown Review of Systems - Review of Systems Constitutional: See HPI. denies: Fever EENT: No symptoms reported Cardiovascular: See HPI, Chest pain - reproducible Respiratory: See HPI, Short of breath Gastrointestinal: No symptoms reported Genitourinary: No symptoms reported Male Genitourinary: No symptoms reported Musculoskeletal: No symptoms reported Skin: No symptoms reported Hematologic/Lymphatic: No symptoms reported Neurological/Psychological: No symptoms reported -: Yes All other systems reviewed and negative Physical Exam - Vital signs Vitals: Temp Pulse Resp BP Pulse Ox 98.5 F 82 18 140/82 H 93 07/30/19 21:31 07/30/19 21:31 07/30/19 21:31 07/30/19 21:31 07/30/19 21:31 Interpretation: Normal - General General appearance: Alert, Other - Using an inhaler during exam - HEENT Head: Normocephalic, Atraumatic Eyes: Normal Pupils: PERRL - Respiratory Respiratory status: No respiratory distress Chest status: Nontender Breath sounds: Normal Chest palpation: Normal - Cardiovascular Rhythm: Regular, Tachycardia Heart sounds: Normal auscultation Murmur: No Friction rub: No Gallop: None auscultated - Abdominal Inspection: Normal Distension: No distension Bowel sounds: Normal Tenderness: Nontender Organomegaly: No organomegaly - Back Back: Normal, Nontender - Extremities General upper extremity: Normal inspection General lower extremity: Normal inspection - Neurological Neuro grossly intact: Yes - Psychological Associated symptoms: Normal affect, Normal mood - Skin Skin Temperature: Warm Skin Moisture: Dry Skin Color: Normal Course - Re-evaluation Re-evalutation: 07/30/19 22:54 Results of ED MSE discussed with patient. All questions were answered prior to discharge. Emergency signs and symptoms, reasons to return to the emergency department discussed with patient. - Vital Signs Vital signs: Temp Pulse Resp BP Pulse Ox 98.5 F 82 18 140/82 H 93 07/30/19 21:31 07/30/19 21:31 07/30/19 21:31 07/30/19 21:31 07/30/19 21:31 - Diagnostic Test Radiology reviewed: Reports reviewed - EKG Interpretation by Me Additional EKG results interpreted by me: 07/30/19 22:55 EKG obtained on 07/30/2019 at 2127 hrs. was interpreted by this MD. Findings: Normal sinus rhythm, rate 77, normal axis, P waves preceding QRS complexes, QRS complexes appear narrow, there are no obviously visible patterns of ST segment elevation or depression present to suggest acute myocardial ischemia or infarction. Impression: Normal sinus rhythm with nonspecific ST segments. Discharge - Discharge Clinical Impression: Allergic bronchitis Qualifiers: Asthma severity: unspecified severity Asthma complication type: uncomplicated Qualified Code(s): J45.909 - Unspecified asthma, uncomplicated Condition: Good Disposition: HOME, SELF-CARE Additional Instructions: Return to the Emergency Department without delay if any worse. HOME CARE INSTRUCTIONS & INFORMATION: Thank you for choosing us for your medical needs. We hope you're satisfied with the care you received. After you leave, you must properly care for your problem and, at the same time, observe its progress. Any condition can change. Some illnesses can change rapidly over hours or days. If your condition worsens, return to the Emergency Department or see your physician promptly. ABOUT YOUR X-RAYS AND EKG'S: If you had an EKG or X-rays taken, they have been read by the Emergency Physician. The X-rays and EKG's will also be read by a Radiologist or Senior Marketing Analyst within 24 hours. If discrepancies are noted, you will be notified by telephone. Please be certain the ED has a correct telephone number & address where you can be reached. Also, realize that some fractures or abnormalities do not show up on initial X-rays. If your symptoms continue, see your physician. ABOUT YOUR LABORATORY TEST: If you had laboratory tests, the results have been reviewed by the Emergency Physician. Some test results (for example cultures) may not be available for several days. You will be contacted if any test result shows you need additional treatment. Please be certain the ED has a correct telephone number and address where you can be reached. ABOUT YOUR MEDICATIONS: You will receive instructions on how to take your medicine on the prescription label you receive. Additional information may be provided by the Pharmacy. If you have questions afterwards, call the ED for clarification or further instructions. Some prescribed medications may cause drowsiness. Do not perform tasks such as driving a car or operating machinery without consulting your Pharmacist. If you feel you need a refill of pain medication, your condition will need re-evaluation. Please do not call for a refill of any medication. ABOUT YOUR SIGNATURE: Signature of this document acknowledges to followin. Understanding that you received emergency treatment and that you may be released before al medical problems are known or treated. Please be certain the ED has a correct phone number & address where you can be reached. 2. Acknowledgement that you will arrange for follow-up care as recommended. 3. Authorization for the Emergency Physician to provide information to your follow-up Physician in order to maximize your care. AT ANY TIME, IF YOUR SYMPTOMS CHANGE SIGNIFICANTLY OR WORSEN OR YOU DEVELOP NEW SYMPTOMS, RETURN TO THE EMERGENCY DEPARTMENT IMMEDIATELY FOR RE-EVALUATION. OUR GOAL IS TO PROVIDE EXCELLENT MEDICAL CARE! WE HOPE THAT WE HAVE MET YOUR EXPECTATIONS DURING YOUR EMERGENCY DEPARTMENT VISIT AND THAT YOU FEEL YOU HAVE RECEIVED EXCELLENT CARE! Bronchitis You have acute bronchitis. This disease is an infection or inflammation of the air passageways in your lungs. Symptoms usually include cough, low grade fever, shortness of breath, and wheezing. The cough usually persists for a couple of weeks. Most cases of bronchitis get better without antibiotics. We prescribe antibiotics when we believe bacteria are damaging your airways, or if there's high risk the bronchitis will worsen into pneumonia. Increase your fluid intake. A cool mist humidifier may make your lungs more comfortable. An expectorant (cough medicine that loosens phlegm) can help. If you smoke, STOP!!! Recovery from bronchitis can be somewhat slow, but you should see improvement within a day or two. Repeated episodes of bronchitis may result in lung damage -- for example, chronic bronchitis, recurrent pneumonias, or emphysema. Call the doctor if you develop increasing fever, shortness of breath, chest pain, bloody sputum, or otherwise worsen. If you have not improved at all after several days, contact the physician. Prescriptions: Prednisone [Deltasone 20 mg Tablet] 3 tab PO DAILY 4 Days #12 tablet Albuterol Sulfate [Proair HFA Inhalation Aerosol 8.5 gm MDI] 2 puff IH Q4H PRN #1 mdi PRN Reason: wheeze, shortness of breath Forms: Return to Work Referrals: MALU BELL MD [Primary Care Provider] - Follow up as needed I personally performed the services described in the documentation, reviewed and edited the documentation which was dictated to the scribe in my presence, and it accurately records my words and actions.
--- NOTE | 2019-07-31 13:50 | EKG REPORT ---
SEVERITY:- NORMAL ECG - SINUS RHYTHM : Confirmed by: Re Dill MD 31-Jul-2019 13:50:00
== END 2019-07-30 23:29 | disposition home or self-care (01) ==
LOC: ER 21:21
DX: J45.909 Unspecified asthma, uncomplicated (principal); R07.9 Chest pain, unspecified; F17.200 Nicotine dependence, unspecified, uncomplicated
CPT/HCPCS: 93005; 94640; 99284; 71046; 93010; J7512; J7620

== ENCOUNTER 2019-08-26 15:32 | Emergency (ER) | payer OTHER ==
[2019-08-26 15:41] VITALS: BP 125/80
--- NOTE | 2019-08-26 16:24 | ER Document Report ---
ED Medical Screen (RME) - General Chief Complaint: Hand Pain Stated Complaint: HAND PAIN Time Seen by Provider: 08/26/19 16:09 Primary Care Provider: MALU BELL MD [Primary Care Provider] - Follow up as needed TRAVEL OUTSIDE OF THE [place] IN LAST 30 DAYS: No - HPI Notes: 08/26/19 16:19 29-year-old male presents emergency room for evaluation of left hand with pain, numbness and tingling x1 day ago. Patient states that he broke his hand in high school, has 6 screws altogether in his left metacarpals from his injury. Unsure of where the screws are and who did the surgery. Reports radiation to his left wrist. Pain is been progressive, has not tried any [id number] medication. Denies any trauma recently. 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 Denies any fevers chills, chest pain, shortness of breath. I have greeted and performed a rapid initial assessment of this patient. A comprehensive ED assessment and evaluation of the patient, analysis of test results and completion of the medical decision making process will be conducted by additional ED providers. PHYSICAL EXAMINATION: GENERAL: Well-appearing, well-nourished and in no acute distress. CV: s1, s2 regular LUNGS: No respiratory distress Musculoskeletal: Normal range of motion NEUROLOGICAL: Normal speech, normal gait. SKIN: Warm, Dry, normal turgor, no rashes or lesions noted. Noted pain with flexion, extension, abduction, adduction of 2nd-5th phalanges. 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 Snuffbox tenderness noted on left. Ulnar and radial pulses + 2 BUE equally. Negative kanavels sign. No open wounds or drainage from wrist. No vascular compromise. 08/26/19 16:23 - Related Data Allergies/Adverse Reactions: tramadol [From Ultram] Allergy (Verified 07/25/19 09:48) bee sting Allergy (Uncoded 07/25/19 09:48) Past Medical History - Social History Family history: Reviewed & Not Pertinent Pulmonary Medical History: Reports: Hx Bronchitis Renal/ Medical History: Reports: Hx Kidney Stones. Denies: Hx Peritoneal Dialysis Musculoskeltal Medical History: Reports Hx Arthritis, Reports Hx Musculoskeletal Deformity - Degenerative disc disease, Reports Hx Musculoskeletal Trauma Traumatic Medical History: Reports: Hx Fractures - Left hand Past Surgical History: Reports: Hx Orthopedic Surgery - L hand with screws in place; right knee tendon ligaments - Immunizations Immunizations up to date: Yes Hx Diphtheria, Pertussis, Tetanus Vaccination: Yes - unknown Physical Exam - Vital signs Vitals: Temp Pulse Resp BP Pulse Ox 98.6 F 80 18 125/80 96 08/26/19 15:40 08/26/19 15:40 08/26/19 15:40 08/26/19 15:40 08/26/19 15:40 Course - Vital Signs Vital signs: Temp Pulse Resp BP Pulse Ox 98.6 F 80 18 125/80 96 08/26/19 15:40 08/26/19 15:40 08/26/19 15:40 08/26/19 15:40 08/26/19 15:40 Doctor's Discharge - Discharge Referrals: MALU BELL MD [Primary Care Provider] - Follow up as needed
[2019-08-26 16:39] LABS: ABSOLUTE BASOPHILS # (AUTO) 0.1 10^3/uL (0.0-0.2); ABSOLUTE EOSINOPHILS # (AUTO) 0.3 10^3/uL (0.0-0.6); ABSOLUTE LYMPHOCYTES (AUTO) 2.7 10^3/uL (0.5-4.7); ABSOLUTE MONOCYTES (AUTO) 0.8 10^3/uL (0.1-1.4); ABSOLUTE NEUT (AUTO) 7.1 10^3/uL (1.7-8.2); BASOPHILS % (AUTO) 0.9 % (0-2); EOSINOPHILS % (AUTO) 2.6 % (0-6); HEMATOCRIT 44.9 % (37.9-51.0); HEMOGLOBIN 15.2 g/dL (13.5-17.0); LYMPHOCYTES % (AUTO) 24.4 % (13-45); MEAN CORPUSCULAR HGB CONC 33.8 g/dL (32.0-36.0); MEAN CORPUSCULAR VOLUME 83 fl (80-97); MONOCYTES % (AUTO) 7.1 % (3-13); PLATELET COUNT 324 10^3/uL (150-450); RED BLOOD COUNT 5.41 10^6/uL (4.35-5.55); RED CELL DISTRIBUTION WIDTH 14.1 % (11.5-14.0); TOTAL CELLS COUNTED % (AUTO) 100 %; WHITE BLOOD COUNT 10.9 10^3/uL (4.0-10.5)
--- NOTE | 2019-08-26 16:45 | RADIOLOGY REPORT (SQ) ---
EXAM DESCRIPTION: HAND LEFT 3 VIEWS IMAGES COMPLETED DATE/TIME: 08/26/2019 4:34 pm REASON FOR STUDY: L hand n/t, + pain COMPARISON: None. EXAM PARAMETERS: NUMBER OF VIEWS: Three views. TECHNIQUE: AP, lateral and oblique radiographic images acquired of the left hand. LIMITATIONS: None. FINDINGS: MINERALIZATION: Normal. BONES: No acute fracture. Orthopedic hardware of 3rd and 4th metacarpals. JOINTS: No effusions. SOFT TISSUES: No soft tissue swelling. No foreign body. OTHER: No other significant finding. IMPRESSION: NEGATIVE STUDY OF THE LEFT HAND. NO RADIOGRAPHIC EVIDENCE OF ACUTE INJURY. TECHNICAL DOCUMENTATION: JOB ID: [id number] 2010 [employer]- All Rights Reserved Reading location - IP/workstation name: [email or web address]
--- NOTE | 2019-08-26 16:46 | RADIOLOGY REPORT (SQ) ---
EXAM DESCRIPTION: WRIST LEFT 3 VIEWS IMAGES COMPLETED DATE/TIME: 08/26/2019 4:34 pm REASON FOR STUDY: L wrist/hand pain, n/t COMPARISON: None. NUMBER OF VIEWS: Three views. TECHNIQUE: AP, lateral, and oblique radiographic images acquired of the left wrist. LIMITATIONS: None. FINDINGS: MINERALIZATION: Normal. BONES: Orthopedic hardware at 3rd and 4th metacarpals. No hardware failure. Positive ulnar variance . SOFT TISSUES: No soft tissue swelling. No foreign body. OTHER: No other significant finding. IMPRESSION: No acute findings. TECHNICAL DOCUMENTATION: JOB ID: [id number] 2010 [employer]- All Rights Reserved Reading location - IP/workstation name: [email or web address]
[2019-08-26 16:58] LABS: ALBUMIN 4.4 g/dL (3.5-5.0); ALKALINE PHOSPHATASE 76 U/L (38-126); ANION GAP 6 (5-19); ASPARTATE AMINO TRANSFERASE 25 U/L (17-59); BILIRUBIN,TOTAL 0.5 mg/dL (0.2-1.3); BLOOD UREA NITROGEN 12 mg/dL (7-20); C-REACTIVE PROTEIN 12.9 mg/L (<10.0); CALCIUM 9.7 mg/dL (8.4-10.2); CARBON DIOXIDE 29 mmol/L (22-30); CHLORIDE 106 mmol/L (98-107); GLUCOSE 93 mg/dL (75-110); POTASSIUM 4.3 mmol/L (3.6-5.0); TOTAL PROTEIN 7.5 g/dL (6.3-8.2)
--- NOTE | 2019-08-26 17:08 | ER Document Report ---
ED General - General Chief Complaint: Hand Pain Stated Complaint: HAND PAIN Time Seen by Provider: 08/26/19 16:09 Primary Care Provider: MALU BELL MD [Primary Care Provider] - Follow up as needed Notes: Patient is a 29-year-old white male with a past medical history significant for ORIF to the left hand years ago in [facility] who presents to the emergency department with a chief complaint of left hand discomfort and swelling and weakness that began yesterday. He states he was on his phone with his left hand yesterday, he is [id number], and noticed that he was having some difficulty gripping the phone. He states he then noticed that his hand appeared to be swollen as compared with the right. States that the hand felt weaker and was slightly uncomfortable with movement. 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 He denies any new injury, fall or trauma. He denies any redness or increased warmth. Denies any fever, chills, night sweats, nausea or vomiting. TRAVEL OUTSIDE OF THE [place] IN LAST 30 DAYS: No - Related Data Allergies/Adverse Reactions: tramadol [From Ultram] Allergy (Verified 07/25/19 09:48) bee sting Allergy (Uncoded 07/25/19 09:48) Past Medical History - Social History Smoking Status: Never Smoker Chew tobacco use (# tins/day): No Frequency of alcohol use: None Drug Abuse: None Family History: Reviewed & Not Pertinent Patient has suicidal ideation: No Patient has homicidal ideation: No Pulmonary Medical History: Reports: Hx Bronchitis Renal/ Medical History: Reports: Hx Kidney Stones. Denies: Hx Peritoneal Dialysis Musculoskeletal Medical History: Reports Hx Arthritis, Reports Hx Musculoskeletal Deformity - Degenerative disc disease, Reports Hx Musculoskeletal Trauma Traumatic Medical History: Reports: Hx Fractures - Left hand Past Surgical History: Reports: Hx Orthopedic Surgery - L hand with screws in place; right knee tendon ligaments - Immunizations Immunizations up to date: Yes Hx Diphtheria, Pertussis, Tetanus Vaccination: Yes - unknown Review of Systems - Review of Systems Musculoskeletal: Other - Hand pain and weakness and swelling -: Yes All other systems reviewed and negative Physical Exam - Vital signs Vitals: Temp Pulse Resp BP Pulse Ox 98.6 F 80 18 125/80 96 08/26/19 15:40 08/26/19 15:40 08/26/19 15:40 08/26/19 15:40 08/26/19 15:40 - General General appearance: Appears well, Alert In distress: None - Respiratory Respiratory status: No respiratory distress Chest status: Nontender Breath sounds: Normal Chest palpation: Normal - Cardiovascular Rhythm: Regular Heart sounds: Normal auscultation - Extremities Hand: Other - Mild dorsal swelling of the left hand as compared with the right. There is a prior surgical scar overlying the mid left dorsum of the left hand. There is no increased warmth or erythema of the left hand. 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 2+ radial on the left. Good capillary refill in the distally in the fingers of the left. Full passive range of motion. No deformity step-off or crepitus. - Neurological Neuro grossly intact: Yes Cognition: Normal Orientation: AAOx4 Tiki Coma Scale Eye Opening: Spontaneous [place]iki Coma Scale Verbal: Oriented Tiki Coma Scale Motor: Obeys Commands [place] Coma Scale Total: 15 Speech: Normal - Psychological Associated symptoms: Normal affect, Normal mood - Skin Skin Temperature: Warm Skin Moisture: Dry Skin Color: Normal Course - Re-evaluation Re-evalutation: 08/26/19 17:06 X-rays negative for any acute process per radiologist. Suspect foreign bodies f rom prior ORIF causing inflammatory like reaction. Patient will institute RICE. Will refer to orthopedics for evaluation of possible hardware removal. Counseled him regarding the importance of outpatient follow-up and advised to return here or any ER immediately with any new, persistent or worsening symptoms. He verbalized understood and agreed. Patient will be given a work note for tomorrow per his request. - Vital Signs Vital signs: Temp Pulse Resp BP Pulse Ox 98.6 F 80 18 125/80 96 08/26/19 15:40 08/26/19 15:40 08/26/19 15:40 08/26/19 15:40 08/26/19 15:40 - Laboratory Result Diagrams: 08/26/19 16:27 08/26/19 16:27 Laboratory results interpreted by me: 08/26/19 08/26/19 16:27 16:27 WBC 10.9 H RDW 14.1 H C-Reactive Protein 12.9 H Discharge - Discharge Clinical Impression: Hand weakness Hand swelling Qualifiers: Laterality: left Qualified Code(s): M79.89 - Other specified soft tissue disorders Condition: Stable Disposition: HOME, SELF-CARE Instructions: Ice & Elevation ([facility]) Additional Instructions: Follow-up with your regular doctor in 2 to 3 days for reevaluation. Return here or any ER immediately with any new, persistent or worsening symptoms. Forms: Return to Work Referrals: MALU BELL MD [Primary Care Provider] - Follow up as needed
== END 2019-08-26 17:26 | disposition home or self-care (01) ==
LOC: ER 15:32
DX: R53.1 Weakness (principal); M79.89 Other specified soft tissue disorders; M79.642 Pain in left hand; Z87.81 Personal history of (healed) traumatic fracture; Z98.890 Other specified postprocedural states; Z91.030 Bee allergy status; Z88.6 Allergy status to analgesic agent
CPT/HCPCS: 36415; 80053; 85025; 86140; 99283

== ENCOUNTER 2019-11-05 19:10 | Emergency (ER) | payer OTHER ==
--- NOTE | 2019-11-05 23:09 | ER Document Report ---
ED Respiratory Problem - General Chief Complaint: Shortness Of Breath Stated Complaint: COVID EXPOSURE Time Seen by Provider: 11/05/19 22:28 Primary Care Provider: MALU BELL MD [Primary Care Provider] - Follow up as needed Mode of Arrival: Ambulatory Information source: Patient Notes: 29-year-old male presented to ED for headache body aches subjective fever with no chills nausea no vomiting cough runny nose and states he has been around somebody who had a COVID virus. The patient was evaluated during the global Covid 19 pandemic, and that diagnosis was suspected/considered upon their initial presentation. Their evaluation, treatment and testing was consistent with current guidelines for patients who present with complaints or symptoms that may be related to Covid 19. TRAVEL OUTSIDE OF THE [place] IN LAST 30 DAYS: No - HPI Patient complains to provider of: Cough, Short of breath Initiating Event: URI Quality of pain: Achy Severity: Moderate Pain Level: 3 Short of Breath: Mild Cough: Nonproductive Sputum amount: None Associated symptoms: Fever, Headache, Runny nose, Sore Throat, Other - But he aches Similar symptoms previously: Yes Notes: She thinks he was in contact with the patient that had coronavirus - Related Data Allergies/Adverse Reactions: tramadol [From Ultram] Allergy (Verified 07/25/19 09:48) bee sting Allergy (Uncoded 07/25/19 09:48) Past Medical History - General Information source: Patient - Social History Smoking Status: Never Smoker Frequency of alcohol use: None Drug Abuse: None Family History: Reviewed & Not Pertinent - Past Medical History Cardiac Medical History: Reports: None Pulmonary Medical History: Reports: Hx Bronchitis EENT Medical History: Reports: None Neurological Medical History: Reports: None Endocrine Medical History: Reports: None Renal/ Medical History: Reports: Hx Kidney Stones Malignancy Medical History: Reports None GI Medical History: Reports: None Musculoskeletal Medical History: Reports Hx Arthritis, Reports Hx Musculoskeletal Deformity - Degenerative disc disease, Reports Hx Musculoskeletal Trauma Skin Medical History: Reports None Psychiatric Medical History: Reports: None Traumatic Medical History: Reports: Hx Fractures - Left hand Past Surgical History: Reports: Hx Orthopedic Surgery - L hand with screws in place; right knee tendon ligaments - Immunizations Immunizations up to date: Yes Hx Diphtheria, Pertussis, Tetanus Vaccination: Yes - unknown Review of Systems - Review of Systems Constitutional: Chills, Recent illness. denies: Fever EENT: Nose discharge, Sinus pressure Cardiovascular: No symptoms reported Respiratory: Cough, Short of breath Gastrointestinal: No symptoms reported Genitourinary: No symptoms reported Male Genitourinary: No symptoms reported Musculoskeletal: Muscle pain, Muscle stiffness Skin: No symptoms reported Hematologic/Lymphatic: No symptoms reported Neurological/Psychological: No symptoms reported -: Yes All other systems reviewed and negative Physical Exam - Vital signs Vitals: Temp Pulse Resp BP Pulse Ox 98.4 F 81 18 116/80 96 11/05/19 19:49 11/05/19 19:49 11/05/19 19:49 11/05/19 19:49 11/05/19 19:49 Interpretation: Normal - General General appearance: Appears well, Alert - HEENT Head: Normocephalic, Atraumatic Eyes: Normal Pupils: PERRL Ears: Normal External canal: Normal Tympanic membrane: Normal Sinus: Frontal - Pressure, Mastoid - Pressure, Maxillary - pressure Nasal: Purulent discharge, Swelling Mouth/Lips: Normal Mucous membranes: Normal Pharynx: Post nasal drainage Neck: Normal - Respiratory Respiratory status: No respiratory distress Chest status: Nontender Breath sounds: Nonproductive cough Chest palpation: Normal - Cardiovascular Rhythm: Regular Heart sounds: Normal auscultation Murmur: No - Abdominal Inspection: Normal Distension: No distension Bowel sounds: Normal Tenderness: Nontender Organomegaly: No organomegaly - Back Back: Normal, Nontender - Extremities General upper extremity: Normal inspection, Nontender, Normal color, Normal ROM, Normal temperature General lower extremity: Normal inspection, Nontender, Normal color, Normal ROM, Normal temperature, Normal weight bearing. No: Carlita's sign - Neurological Neuro grossly intact: Yes Cognition: Normal Orientation: AAOx4 [place] Coma Scale Eye Opening: Spontaneous [place] Coma Scale Verbal: Oriented [place] Coma Scale Motor: Obeys Commands [place] Coma Scale Total: 15 Speech: Normal Motor strength normal: LUE, RUE, LLE, RLE Sensory: Normal - Psychological Associated symptoms: Normal affect, Normal mood - Skin Skin Temperature: Warm Skin Moisture: Dry Skin Color: Normal Course - Re-evaluation Re-evalutation: 11/05/19 23:05 Patient presents with upper respiratory symptoms worrisome for possible Covid 19. Patient does not have emergency worring symptoms such as difficulty breathi ng, shortness of breath, chest pain, pressure, confusion or cyanosis. Patient appears suitable for discharge as they are not of an advanced age, do not have any chronic medical conditions such as diabetes, CAD, immune deficiency, chronic lung disease or chronic kidney disease. Patient's vital signs are stable and patient is nontoxic in appearance. Good return precautions have been discussed with patient, patient verbalized understanding and is agreeable with discharge plan of care at this time. 11/06/19 02:29 Chest pain is consistent with an upper respiratory infection. He has been given the COVID precautions. - Vital Signs Vital signs: Temp Pulse Resp BP Pulse Ox 97.8 F 70 16 121/80 99 11/06/19 01:52 11/06/19 01:52 11/06/19 01:52 11/06/19 01:52 11/06/19 01:52 - Laboratory Result Diagrams: 11/06/19 00:10 11/06/19 00:10 Laboratory results interpreted by me: 11/06/19 00:10 WBC 10.9 H RDW 14.3 H - Diagnostic Test Radiology reviewed: Image reviewed, Reports reviewed Discharge - Discharge Clinical Impression: Patient is a COVID-19 pui URI (upper respiratory infection) Qualifiers: URI type: unspecified viral URI Qualified Code(s): J06.9 - Acute upper respiratory infection, unspecified Disposition: HOME, SELF-CARE Additional Instructions: Patient was provided with discharge information including: As a person under investigation for Covid 19, the [place] department of Health and Human Services, division of public health advises you to adhere to the following guidance until your test results are reported to you. If your test result is positive, you will receive additional information from your provider and your local health department at that time. Remain at home until you are cleared by the health provider or public health authorities. Keep a log of visitors to your home, notify any visitors to your home of your isolation status. If you plan to move to a new address or leave the county, notify the local health department in your County. Call your doctor or seek care if you have an urgent medical need. Before seeking medical care, call ahead to get instructions from the provider before arriving at the medical office clinic or hospital. Notify them that you are being tested for the virus that causes Covid 19 so that arrangements can be made, as necessary, to prevent transmission to others in the healthcare setting. Next, notify the local health department in your county. If a medical emergency arises and you need to call 911, inform the first respo nders that you are being tested for the virus that causes Covid 19. Next, notify the local health department in your county. UPPER RESPIRATORY ILLNESS: You have a viral infection of the respiratory passages -- a "cold." This common infection causes nasal congestion, drainage, and often sore throat and cough. It is highly contagious. The disease usually lasts about 10 to 14 days. There is no "cure" for the viral infection -- it must run its course. If there is a complication, such as bacterial infection in the nose, sinuses, middle ear, or bronchial tubes, antibiotics may be required. The antibiotics won't affect the virus. Drink plenty of fluids. A humidifier may help. An expectorant medication or decongestant may make you more comfortable. Use acetaminophen or ibuprofen for fever or aches. See the doctor if fever persists over two days, if there is any significant worsening of your symptoms, or if you simply fail to improve as expected. BRONCHOSPASM: You have tightness in the bronchial tubes, called bronchospasm. This often occurs with bronchial infections. Allergies, inhaled chemicals, and polluted or cold air can also provoke bronchospasm. It's more likely in patients with asthma in the family. Emergency treatment of bronchospasm may include adrenaline shots or bronchodilator aerosol. You may feel lightheaded and have a rapid pulse for an hour or two. Rest and get plenty of fluids. At home, we'll treat you with a bronchodilator inhaler. Antibiotics and corticosteroids may be required for some patients. Until you recover, avoid chemical fumes, dusts, pollens, and exercising in very cold or dry air. If you smoke, stop now!! If you develop a fever, increased wheezing, chest pain, or severe shortness of breath, you should contact the doctor immediately. DECONGESTANT MEDICATION: A decongestant medicine has been prescribed. Often this medicine is combined in the same tablet with an antihistamine or expectorant. This type of medicine is helpful in treating a bad cold or sinus condition, as well as in treatment of the nasal congestion of hay fever. It is not of much benefit for lung infections. Decongestant medicines are related to stimulants. They can cause an increase in blood pressure and heart rate. Persons with heart disease and high blood pressure should not take decongestants without discussing this with the physician. If you develop palpitations, chest pain, headache, or tremors, stop the medicine and consult your physician. COUGH-SUPPRESSANT & EXPECTORANT MEDICATION: You are to use a cough medication as needed for relief of symptoms. This medicine is a combination of an expectorant (to make the mucous thinner and more easily "coughed up") and a cough suppressant (to reduce the frequency of coughing). The cough-suppressant medicine is related to narcotics. You may experience mild nausea and sleepiness. Some patients who are very sensitive to narcotics may have stomach pain from this medicine. Taking the medicine with food reduces these side effects. Do not drive or work with machinery until you know how this medicine affects you. The expectorant should have no side effects. Iodine-containing expectorants (such as organidin) should not be taken by persons with active thyroid disease unless approved by your doctor. Call the doctor if you develop shortness of breath, hives, rash, itching, lightheadedness, or severe nausea and vomiting. INHALED BRONCHODILATORS: You have received a treatment of and/or prescription for an inhaled bronchodilator -- a medication which stimulates the airways in the lung to dilate. This improves the flow of air in asthma, bronchitis, and emphysema. These medicines have some similarity to adrenaline, and can cause similar side effects: shakiness, racing heart, and a sense of nervousness. These side effects decrease with time. Contact your doctor if these side effects are severe. Do not over-use the medicine. Too-frequent use of the inhaler may make it ineffective. Call your doctor if the inhaler is not controlling your symptoms at the prescribed doses. STEROID MEDICATION: You have been given an injection of or oral medicine of the cortisone/steroid class. This medication is used to control inflammation or allergy. Je t is usually only given for a short period of time, until the acute process subsides. There are usually no side effects from short-term use of cortisone-like medications. Some persons feel an increased sense of well-being and are not sleepy at bedtime. Long-term use of cortisone medications is best avoided, unless required for a severe condition. If your condition does not remit, or relapses after the course of corticosteroid medication, you should consult your physician. USE OF ACETAMINOPHEN (Tylenol): Acetaminophen may be taken for pain relief or fever control. It's much safer than aspirin, offering a wider range of "safe" dosages. It is safe during . Some brand names are Tylenol, Panadol, Datril, Anacin 3, Tempra, and Liquiprin. Acetaminophen can be repeated every four hours. The following are maximum recommended dosages: >89 pounds or adults 650 mg to 900 mg Acetaminophen can be repeated every four hours. Maximum dose not to exceed 4000 mg a day. SMOKING: If you smoke, you should stop smoking. The tar and chemicals in cigarette smoke are harmful. Smoking has been shown to cause: emphysema chronic bronchitis lung cancer mouth and throat cancer stomach and pancreas cancer premature aging defects In addition, smoking increases ear and lung infections in children of smokers. FOLLOW-UP CARE: If you have been referred to a physician for follow-up care, call the physicians office for an appointment as you were instructed or within the next two days. If you experience worsening or a significant change in your symptoms, notify the physician immediately or return to the Emergency Department at any time for re-evaluation. Forms: Return to Work Referrals: MALU BELL MD [Primary Care Provider] - Follow up as needed
[2019-11-05 23:41] LABS: APPEARANCE,URINE CLEAR; BILIRUBIN,URINE NEGATIVE (NEGATIVE); COLOR,URINE YELLOW; GLUCOSE, URINE NEGATIVE (NEGATIVE); KETONES,URINE NEGATIVE (NEGATIVE); LEUKOCYTE ESTERASE,URINE NEGATIVE (NEGATIVE); NITRITE,URINE NEGATIVE (NEGATIVE); PROTEIN,URINE NEGATIVE (NEGATIVE); URINE SPECIFIC GRAVITY 1.021; UROBILINOGEN,URINE NEGATIVE mg/dL (<2.0)
[2019-11-06 00:30] LABS: ABSOLUTE BASOPHILS # (AUTO) 0.1 10^3/uL (0.0-0.2); ABSOLUTE EOSINOPHILS # (AUTO) 0.2 10^3/uL (0.0-0.6); ABSOLUTE LYMPHOCYTES (AUTO) 3.3 10^3/uL (0.5-4.7); ABSOLUTE MONOCYTES (AUTO) 0.7 10^3/uL (0.1-1.4); ABSOLUTE NEUT (AUTO) 6.6 10^3/uL (1.7-8.2); BASOPHILS % (AUTO) 0.9 % (0-2); EOSINOPHILS % (AUTO) 2.2 % (0-6); HEMATOCRIT 45.2 % (37.9-51.0); HEMOGLOBIN 15.3 g/dL (13.5-17.0); LYMPHOCYTES % (AUTO) 30.5 % (13-45); MEAN CORPUSCULAR HEMOGLOBIN 28.2 pg (27.0-33.4); MEAN CORPUSCULAR HGB CONC 33.8 g/dL (32.0-36.0); MEAN CORPUSCULAR VOLUME 84 fl (80-97); MONOCYTES % (AUTO) 6.3 % (3-13); PLATELET COUNT 316 10^3/uL (150-450); RED BLOOD COUNT 5.42 10^6/uL (4.35-5.55); RED CELL DISTRIBUTION WIDTH 14.3 % (11.5-14.0); SEGMENTED NEUTROPHILS % (AUTO) 60.1 % (42-78); TOTAL CELLS COUNTED % (AUTO) 100 %; WHITE BLOOD COUNT 10.9 10^3/uL (4.0-10.5)
[2019-11-06 00:52] LABS: ALBUMIN 4.3 g/dL (3.5-5.0); ALKALINE PHOSPHATASE 69 U/L (38-126); ANION GAP 5 (5-19); ASPARTATE AMINO TRANSFERASE 24 U/L (17-59); BILIRUBIN,TOTAL 0.5 mg/dL (0.2-1.3); BLOOD UREA NITROGEN 14 mg/dL (7-20); CALCIUM 9.8 mg/dL (8.4-10.2); CARBON DIOXIDE 30 mmol/L (22-30); CHLORIDE 103 mmol/L (98-107); GLUCOSE 102 mg/dL (75-110); POTASSIUM 4.7 mmol/L (3.6-5.0); TOTAL PROTEIN 7.4 g/dL (6.3-8.2)
[2019-11-06 00:58] LABS: A TYPE INFLUENZA AG NEGATIVE (NEGATIVE); B INFLUENZA AG NEGATIVE (NEGATIVE)
[2019-11-06 01:53] VITALS: BP 121/80
--- NOTE | 2019-11-06 02:03 | RADIOLOGY REPORT (SQ) ---
EXAM DESCRIPTION: XR CHEST 1 VIEW COMPLETED DATE/TME: 11/06/2019 00:36 CLINICAL HISTORY: 29 years, Male, cough COMPARISON: 07/30/2019 chest x-ray NUMBER OF VIEWS: 1 TECHNIQUE: Portable chest LIMITATIONS: None. FINDINGS: Heart size is stable. Lungs clear. No pneumothorax IMPRESSION: No acute cardiopulmonary process copyright 2010 [facility] [employer]- All Rights Reserved
== END 2019-11-06 02:45 | disposition home or self-care (01) ==
LOC: ER 19:10
DX: J02.9 Acute pharyngitis, unspecified (principal); J06.9 Acute upper respiratory infection, unspecified; R06.02 Shortness of breath; R50.9 Fever, unspecified; R51 Headache; Z20.828 Contact with and (suspected) exposure to other viral communicable diseases
CPT/HCPCS: 99283; 36415; 87070; 87086; 87880; 85025; 87635; 80053; 81001; 87804; 71045; C9803

== ENCOUNTER 2020-01-18 10:53 | Emergency (ER) | payer OTHER ==
[2020-01-18 11:02] VITALS: BP 145/78
[2020-01-18] MEDS ORDERED: PROMETHAZINE HCL 25 MG TABLET PO ONE (12:30)
[2020-01-18] MEDS ORDERED: ACETAMINOPHEN 325 MG TABLET PO ONE (12:31)
--- NOTE | 2020-01-18 12:34 | ER Document Report ---
ED General - General Chief Complaint: Headache Stated Complaint: NAUSEA,HEADACHE Time Seen by Provider: 01/18/20 12:08 Primary Care Provider: MALU BELL MD [Primary Care Provider] - Follow up as needed Notes: HPI: 29-year-old male who states a slow development of a nontraumatic headache over the last 48 hours with some nausea as well as "diffuse body aches". He denies any fevers, vomiting, chest pain, cough, shortness of breath, abdominal pain or diarrhea. He denies any double or blurry vision. ROS: See HPI All other review of systems reviewed and otherwise negative Reviewed vital signs and nursing note as charted by RN. PHYSICAL EXAM: CONSTITUTIONAL: Alert and oriented and responds appropriately to questions. Well-appearing; well-nourished HEAD: Normocephalic; atraumatic EYES: PERRL; Conjunctivae clear, no nystagmus; globes are soft ENT: Normal nose; no rhinorrhea; moist mucous membranes; pharynx without lesions noted NECK: Supple without meningismus; non-tender; no cervical lymphadenopathy, no masses CARD: Regular rate and rhythm; no murmurs; symmetric distal pulses RESP: Normal chest excursion without splinting or tachypnea; breath sounds clear and equal bilaterally ABD/GI: Normal bowel sounds; non-distended; soft, non-tender; no palpable organomegaly or masses BACK: The back appears normal and is non-tender to palpation EXT: Normal ROM in all joints; non-tender to palpation; no edema SKIN: No acute lesions noted NEURO: CN 2-12 intact; 5/5 bilateral upper and lower extremity strength with sensation intact to light touch PSYCH: The patient's mood and manner are appropriate. Grooming and personal hygiene are appropriate. TRAVEL OUTSIDE OF THE [place] IN LAST 30 DAYS: No - Related Data Allergies/Adverse Reactions: tramadol [From Ultram] Allergy (Verified 01/18/20 12:11) bee sting Allergy (Uncoded 07/25/19 09:48) Past Medical History - Social History Smoking Status: Never Smoker Frequency of alcohol use: None Drug Abuse: None Family History: Reviewed & Not Pertinent Patient has homicidal ideation: No Pulmonary Medical History: Reports: Hx Bronchitis Renal/ Medical History: Reports: Hx Kidney Stones. Denies: Hx Peritoneal Dialysis Musculoskeletal Medical History: Reports Hx Arthritis, Reports Hx Musculoskeletal Deformity - Degenerative disc disease, Reports Hx Musculoskeletal Trauma Traumatic Medical History: Reports: Hx Fractures - Left hand Past Surgical History: Reports: Hx Orthopedic Surgery - L hand with screws in place; right knee tendon ligaments - Immunizations Immunizations up to date: Yes Hx Diphtheria, Pertussis, Tetanus Vaccination: Yes - unknown Physical Exam - Vital signs Vitals: Temp Pulse Resp BP Pulse Ox 98.6 F 102 H 18 145/78 H 97 01/18/20 11:01/18/20 11:01/18/20 11:01/18/20 11:01/18/20 11:01 Course - Re-evaluation Re-evalutation: 01/18/20 12:31 Given the history and physical and is afebrile very well-appearing male in no acute distress with no focal logical deficits, with some body aches and nausea with a nonspecific slow developing frontal headache without double or blurry vision, neck pain, fevers, or any other acute complaints, I do not believe any imaging or laboratory work other than a coronavirus test is necessary. I have a very low pretest probability for intracranial mass, acute angle-closure glaucoma, acute bacterial meningitis, or electrolyte abnormalities. I will provide a dose of Phenergan and Tylenol and send a coronavirus test. Patient understands the importance of strict return precautions as well as quarantine until results have returned. - Vital Signs Vital signs: Temp Pulse Resp BP Pulse Ox 98.6 F 102 H 18 145/78 H 97 01/18/20 11:05 01/18/20 11:01/18/20 11:01/18/20 11:01/18/20 11:01 Discharge - Discharge Clinical Impression: Frontal headache, Body aches, Nausea Condition: Good Disposition: HOME, SELF-CARE Additional Instructions: Come back immediately for any worsening headache, double blurry vision, rash, shortness of breath, persistent vomiting or diarrhea, or any other acute problems. Please make sure that you quarantine yourself as discussed until your results have returned. You may take 1 g of Tylenol, 600 mg of ibuprofen, and Phenergan every 6 hours as needed for pain or nausea. Prescriptions: Promethazine HCl [Phenergan 25 mg Tablet] 25 mg PO Q8 #12 tablet Referrals: MALU BELL MD [Primary Care Provider] - Follow up as needed
== END 2020-01-18 14:25 | disposition home or self-care (01) ==
LOC: ER 10:53
DX: R51 Headache (principal); R11.0 Nausea; Z88.6 Allergy status to analgesic agent; Z91.030 Bee allergy status; Z20.828 Contact with and (suspected) exposure to other viral communicable diseases
CPT/HCPCS: 99283; U0003; C9803; 87635

== ENCOUNTER 2020-04-03 03:42 | Emergency (ER) | payer OTHER ==
[2020-04-03 05:13] LABS: ABSOLUTE BASOPHILS # (AUTO) 0.1 10^3/uL (0.0-0.2); ABSOLUTE EOSINOPHILS # (AUTO) 0.2 10^3/uL (0.0-0.6); ABSOLUTE LYMPHOCYTES (AUTO) 2.7 10^3/uL (0.5-4.7); ABSOLUTE MONOCYTES (AUTO) 0.5 10^3/uL (0.1-1.4); ABSOLUTE NEUT (AUTO) 5.2 10^3/uL (1.7-8.2); BASOPHILS % (AUTO) 0.8 % (0-2); EOSINOPHILS % (AUTO) 2.7 % (0-6); HEMOGLOBIN 15.8 g/dL (13.5-17.0); LYMPHOCYTES % (AUTO) 31.4 % (13-45); MEAN CORPUSCULAR HGB CONC 33.7 g/dL (32.0-36.0); MEAN CORPUSCULAR VOLUME 83 fl (80-97); MONOCYTES % (AUTO) 6.1 % (3-13); PLATELET COUNT 299 10^3/uL (150-450); RED BLOOD COUNT 5.65 10^6/uL (4.35-5.55); RED CELL DISTRIBUTION WIDTH 14.1 % (11.5-14.0); TOTAL CELLS COUNTED % (AUTO) 100 %; WHITE BLOOD COUNT 8.7 10^3/uL (4.0-10.5)
[2020-04-03 05:31] LABS: ALBUMIN 4.2 g/dL (3.5-5.0); ALKALINE PHOSPHATASE 70 U/L (38-126); ANION GAP 9 (5-19); ASPARTATE AMINO TRANSFERASE 22 U/L (17-59); BILIRUBIN,DIRECT 0.1 mg/dL (0.0-0.4); BILIRUBIN,TOTAL 0.8 mg/dL (0.2-1.3); BLOOD UREA NITROGEN 12 mg/dL (7-20); CALCIUM 9.6 mg/dL (8.4-10.2); CARBON DIOXIDE 29 mmol/L (22-30); CHLORIDE 104 mmol/L (98-107); GLUCOSE 98 mg/dL (75-110); POTASSIUM 4.3 mmol/L (3.6-5.0); TOTAL PROTEIN 7.1 g/dL (6.3-8.2)
[2020-04-03 05:38] LABS: A TYPE INFLUENZA AG NEGATIVE (NEGATIVE); B INFLUENZA AG NEGATIVE (NEGATIVE)
[2020-04-03 05:40] LABS: APPEARANCE,URINE CLEAR; BILIRUBIN,URINE NEGATIVE (NEGATIVE); COLOR,URINE YELLOW; GLUCOSE, URINE NEGATIVE (NEGATIVE); KETONES,URINE NEGATIVE (NEGATIVE); LEUKOCYTE ESTERASE,URINE NEGATIVE (NEGATIVE); NITRITE,URINE NEGATIVE (NEGATIVE); PROTEIN,URINE NEGATIVE (NEGATIVE); URINE SPECIFIC GRAVITY 1.023; UROBILINOGEN,URINE NEGATIVE mg/dL (<2.0)
[2020-04-03] MEDS ORDERED: METOCLOPRAMIDE HCL INJ/PF 10 MG/2 ML SDV IV ONE (06:27)
[2020-04-03] MEDS ORDERED: DIPHENHYDRAMINE HCL 50 MG/ML VIAL IV ONE (06:27)
[2020-04-03] MEDS ORDERED: KETOROLAC TROMETHAMINE INJ/PF 30 MG/1 ML SDV IV ONE (06:27)
[2020-04-03] MEDS ORDERED: NORMAL SALINE 1000 ML 1,000 ML IV ONE (06:28)
--- NOTE | 2020-04-03 07:36 | ER Document Report ---
ED General - General Chief Complaint: Flu Symptoms Stated Complaint: FEELING FEVERISH/NAUSEA/VOMITING Time Seen by Provider: 04/03/20 05:28 Primary Care Provider: MALU BELL MD [Primary Care Provider] - Follow up as needed Mode of Arrival: Ambulatory Information source: Patient Notes: Patient is an otherwise healthy 29-year-old male who works in the [employer] system coming in today with a couple days of headache, malaise, nausea, vomiting, diarrhea, and weakness. He has been exposed to a number of people at work with Covid. TRAVEL OUTSIDE OF THE [place] IN LAST 30 DAYS: No - Related Data Allergies/Adverse Reactions: tramadol [From Ultram] Allergy (Verified 01/18/20 12:11) bee sting Allergy (Uncoded 07/25/19 09:48) Past Medical History - Social History Smoking Status: Never Smoker Family History: Reviewed & Not Pertinent Pulmonary Medical History: Reports: Hx Bronchitis Renal/ Medical History: Reports: Hx Kidney Stones. Denies: Hx Peritoneal Dialysis Musculoskeletal Medical History: Reports Hx Arthritis, Reports Hx Musculoskeletal Deformity - Degenerative disc disease, Reports Hx Musculoskeletal Trauma Traumatic Medical History: Reports: Hx Fractures - Left hand Past Surgical History: Reports: Hx Orthopedic Surgery - L hand with screws in place; right knee tendon ligaments - Immunizations Immunizations up to date: Yes Hx Diphtheria, Pertussis, Tetanus Vaccination: Yes - unknown Review of Systems - Review of Systems Notes: Constitutional: Weakness and malaise EENT: No eye redness. No eye pain. No ear pain. No sore throat. Cardiovascular: No chest pain. No palpitations. Respiratory: No cough. No shortness of breath. No respiratory distress. Gastrointestinal: Nausea vomiting and diarrhea Genitourinary: Atraumatic. No lesions. No pain. No discharge. Musculoskeletal: Atraumatic. No swelling. No deformities. Skin: No rash or lesions. Lymphatic: No swollen lymph nodes. Neurologic: No headache. No syncope. Psychiatric: No suicidal or homicidal ideation. Physical Exam - Notes Notes: General: Well-developed, well-nourished. In no acute distress. Non-toxic appearing. Cardiac: Well-perfused. Regular rate and rhythm. No murmurs, rubs, or gallops. Pulmonary: No respiratory distress. No cyanosis. Bilateral lung pace are clear to auscultation. Abdominal: Non-distended. Non-rigid. Bowels sounds are present in all four quadrants. No guarding or rebound. HEENT: Head is atraumatic. Conjunctivae not reddened. No tearing. PERRL. EOMI. Orbits atraumatic. No periorbital swelling or erythema. Oropharynx is without erythema, swelling, or exudates. Neck: Supple. No adenopathy. No meningismus. Dermatologic: Warm with good turgor. No rash. Atraumatic. Chest: Atraumatic. No chest wall tenderness to palpation. Musculoskeletal: Moves all extremities well. No range of motion deficits. no muscular or joint tenderness. No paraspinal muscle tenderness. no midline spinal tenderness or step-off. Genitourinary: Examination deferred Neurologic: No gross neurologic deficits. Psychiatric: Normal mood. Course - Re-evaluation Re-evalutation: 04/03/20 07:33 Labs reassuring. Lungs clear. Vital signs stable. I will give him a prescription for Reglan for his nausea and a metered-dose inhaler for shortness of breath if needed. He is Covid pending - Laboratory Result Diagrams: 04/03/20 04:30 04/03/20 04:30 Laboratory results interpreted by me: 04/03/20 04:30 RBC 5.65 H RDW 14.1 H Discharge - Discharge Clinical Impression: Viral syndrome, Person under investigation for COVID-19 Condition: Good Disposition: HOME, SELF-CARE Instructions: COVID-19 Guidance for Persons Under Investigation, Viral Syndrome ([facility]), Nausea or Vomiting, Nonspecific ([facility]), Reglan ([facility]) Prescriptions: Metoclopramide HCl [Reglan 10 mg Tablet] 10 mg PO Q6HP PRN #20 tablet PRN Reason: Albuterol Sulfate [Proair HFA Inhalation Aerosol 8.5 gm MDI] 2 puff IH Q4H PRN #1 mdi PRN Reason: Forms: Return to Work Referrals: MALU BELL MD [Primary Care Provider] - Follow up as needed
[2020-04-03 08:25] VITALS: BP 129/84
== END 2020-04-03 08:42 | disposition home or self-care (01) ==
LOC: ER 03:42
DX: B34.9 Viral infection, unspecified (principal); R50.9 Fever, unspecified; R11.2 Nausea with vomiting, unspecified; R51.9 Headache, unspecified; Z20.828 Contact with and (suspected) exposure to other viral communicable diseases
CPT/HCPCS: 99284; 96361; 96374; 96375; 36415; 87070; 87880; 85025; 80053; 81001; 87804; U0003; J1200; J1885; J2765; J7030; C9803; 87635

== ENCOUNTER 2020-05-09 21:16 | Emergency (ER) | payer OTHER ==
[2020-05-09 21:24] VITALS: BP 135/83
[2020-05-09] MEDS ORDERED: HYDROCODONE/ACETAMINOPHEN 5-325 MG TABLET PO ONE (23:13)
--- NOTE | 2020-05-10 00:13 | RADIOLOGY REPORT (SQ) ---
EXAM DESCRIPTION: XR RIBS LEFT WITH CHEST 5 views COMPLETED DATE/TME: 05/09/2020 23:26 CLINICAL HISTORY: 29 years, Male, injury COMPARISON: None. NUMBER OF VIEWS: TECHNIQUE: LIMITATIONS: None. FINDINGS: No evidence of rib fracture. No evidence of pulmonary infiltrate or pleural effusion. No evidence of pneumothorax. The heart and mediastinum are unremarkable. Pulmonary vascularity appears normal. IMPRESSION: No evidence of rib fracture. copyright 2010 [employer]- All Rights Reserved
--- NOTE | 2020-05-10 00:19 | ER Document Report ---
HPI - HPI Patient complains to provider of: Left rib pain Time Seen by Provider: 05/09/20 23:09 Pain Level: 3 Context: 29-year-old male presents to the emergency room complaining of left rib pain. States he was wrestling with his son when he lost his balance came down on his son's knee injuring his left ribs. States he took ibuprofen without relief. States it hurts to breathe but he denies any shortness of breath or difficulty breathing. No chest pain. Associated Symptoms: None Exacerbated by: Deep breathing Relieved by: Denies Similar symptoms previously: No Recently seen / treated by doctor: No - ROS Systems Reviewed and Negative: Yes All other systems reviewed and negative - CARDIOVASCULAR Cardiovascular: DENIES: Chest pain - RESPIRATORY Respiratory: DENIES: Trouble Breathing, Coughing - GASTROINTESTINAL Gastrointestinal: DENIES: Abdominal Pain - REPRODUCTIVE Reproductive: REPORTS: : - MUSCULOSKELETAL Notes: Left rib pain - DERM Skin Color: Normal Skin Problems: None Past Medical History - General Information source: Patient - Social History Smoking Status: Former Smoker Frequency of alcohol use: None Drug Abuse: None Family History: Reviewed & Not Pertinent Pulmonary Medical History: Reports: Hx Bronchitis Renal/ Medical History: Reports: Hx Kidney Stones. Denies: Hx Peritoneal Dialysis Musculoskeletal Medical History: Reports Hx Arthritis, Reports Hx Musculoskeletal Deformity - Degenerative disc disease, Reports Hx Musculoskeletal Trauma Traumatic Medical History: Reports: Hx Fractures - Left hand Past Surgical History: Reports: Hx Orthopedic Surgery - L hand with screws in place; right knee tendon ligaments - Immunizations Immunizations up to date: Yes Hx Diphtheria, Pertussis, Tetanus Vaccination: Yes - unknown Vertical Provider Document - CONSTITUTIONAL Agree With Documented VS: Yes Exam Limitations: No Limitations General Appearance: Mild Distress - INFECTION CONTROL TRAVEL OUTSIDE OF THE [place] IN LAST 30 DAYS: No - HEENT HEENT: Atraumatic, Normocephalic - NECK Neck: Normal Inspection, Supple, Thyroid Normal - RESPIRATORY Respiratory: Breath Sounds Normal, No Respiratory Distress Notes: Tenderness on palpation to the left anterior ribs ecchymosis is noted but there is no obvious deformity. No floating rib palpated - CARDIOVASCULAR Cardiovascular: Regular Rate, Regular Rhythm, No Murmur - GI/ABDOMEN Gastrointestinal: Abdomen Soft, Abdomen Non-Tender, No Organomegaly. negative: Abdominal Guarding, Abdominal Rebound - BACK Back: Normal Inspection. negative: CVA Tenderness-Right, CVA Tenderness-Left - NEURO Level of Consciousness: Awake, Alert, Appropriate Motor/Sensory: No Motor Deficit, No Sensory Deficit Course - Re-evaluation Re-evalutation: 05/10/20 00:17 Patient is resting comfortably with decreased pain. Reviewed negative x-ray results with patient. Counseled to take Tylenol and or Motrin as needed for pain. Counseled importance of taking frequent deep breaths. Outpatient follow- up primary care physician if not improving in 2 to 3 days. Patient was given strict return to the emergency room guidelines. Return for any new or worsening symptoms. All questions were answered. Patient verbalized understanding and agrees with plan of care. - Vital Signs Vital signs: Temp Pulse Resp BP Pulse Ox 98.2 F 77 22 H 135/83 H 97 05/09/20 21:21 05/09/20 21:21 05/09/20 21:21 05/09/20 21:21 05/09/20 21:21 - Laboratory Results Critical Laboratory Results Reviewed: No Critical Results - Radiology Results Critical Radiology Results Reviewed: No Critical Results Discharge - Discharge Clinical Impression: Contusion of rib on left side Qualifiers: Encounter type: initial encounter Qualified Code(s): S20.212A - Contusion of left front wall of thorax, initial encounter Condition: Stable Disposition: HOME, SELF-CARE Instructions: Rib Contusion ([facility]) Additional Instructions: Tylenol and or Motrin as needed for pain. Frequent deep breaths. Follow-up with primary care physician if not improving in 2 to 3 days. Forms: Return to Work Referrals: MALU BELL MD [Primary Care Provider] - Follow up as needed
== END 2020-05-10 07:30 | disposition home or self-care (01) ==
LOC: ER 21:16
DX: S20.212A Contusion of left front wall of thorax, initial encounter (principal); R07.81 Pleurodynia; W51.XXXA Accidental striking against or bumped into by another person, initial encounter; Y93.72 Activity, wrestling; Z87.891 Personal history of nicotine dependence
CPT/HCPCS: 99283